=== PATIENT | male | born 1945 | race Asian ===

== ENCOUNTER 2020-05-18 12:45 | Inpatient (IN) | payer MEDICARE, MEDICAID ==
[~2020-05-18] VITALS: Ht 157.5 cm; Wt 59.9 kg
[2020-05-18 13:25] VITALS: BP 203/74
[2020-05-18 13:53] LABS: BASOPHILS % (AUTO) 0.8 % (0.0-2.0); EOSINOPHILS % (AUTO) 3.3 % (0.0-3.0); HEMATOCRIT 40.1 % (42.0-52.0); HEMOGLOBIN 12.9 G/DL (14.2-18.0); LYMPHOCYTES % (AUTO) 7.6 % (20.0-45.0); MEAN CORPUSCULAR VOLUME 95 FL (80-99); MONOCYTES % (AUTO) 8.1 % (1.0-10.0); NEUTROPHILS % (AUTO) 80.1 % (45.0-75.0); PLATELET COUNT 175 K/UL (150-450); RED BLOOD COUNT 4.21 M/UL (4.70-6.10); RED CELL DISTRIBUTION WIDTH 17.3 % (11.6-14.8); WHITE BLOOD COUNT 8.5 K/UL (4.8-10.8)
[2020-05-18 14:06] LABS: CREATININE 7.9 MG/DL (0.55-1.30); POTASSIUM 4.8 MMOL/L (3.5-5.1)
[2020-05-18 14:17] LABS: ALBUMIN/GLOBULIN RATIO 0.6 (1.0-2.7); BILIRUBIN,TOTAL 0.4 MG/DL (0.2-1.0)
--- NOTE | 2020-05-18 14:45 | Consultation ---
Consult Note Consult Note Asked to evaluate the patient at the request of Dr. Johnson for dialysis management Patient seen in emergency room room 10 Patient here for shortness of breath He gets dialysis Monday He admits to have been drinking lots of liquid over the weekend Upon arrival his blood pressure was accelerated and out of control Patient interviewed and examined Emergency room note: HPI: 74-year old male presents for shortness of breath and generalized weakness. He states he has had shortness of breath on exertion for approximately 1 week. Currently walking with a walker and states he can only take a few steps without becoming shortness of breath. He has a history of hypertension diabetes and is on dialysis Monday. Last dialysis was on Monday. He denies any chest pain nausea vomiting fever or cough. Allergies: MORPHINE (Verified Allergy, Unknown, 05/18/20) COVID-19 Screening Contact w/high risk pt: No Experienced COVID-19 symptoms?: No COVID-19 Testing performed METHODOLOGIST: No Past Medical History: No History, Except For Hx Hypertension: Yes Hx Diabetes: Yes Vital Signs Date Time Temp Pulse Resp B/P (MAP) Pulse Ox O2 Delivery O2 Flow Rate FiO2 05/18/20 12:50 97.3 53 16 201/70 (113) 100 Room Air 05/18/20 13:25 98 PHYSICAL EXAMINATION: VITAL SIGNS: Blood pressure was as high as 180/70, pulse is 72, respirations 18, and he is afebrile. HEAD AND NECK: No JVD. LUNGS: Decreased breath sounds. CARDIOVASCULAR: Regular S1 and S2 with no gallop. ABDOMEN: Soft. EXTREMITIES: No pitting edema. LABORATORY AND DIAGNOSTIC DATA: Labs show white count of 6.8, hemoglobin 12.7, hematocrit 38.2, platelet count of 175. Sodium 142, potassium 4.3, BUN of 56, creatinine of 6.9. BNP is 21,000. Initial troponin was negative, but followup troponin is positive at 0.32. . Assessment/Plan End-stage renal disease on hemodialysis via left upper arm fistula Monday Volume overload, on chest x-ray evident Hypertension [id number] DM Blood pressure management Hemodialysis in a.m. Per orders Taye Costa MD May 18, 2020 14:45
[2020-05-18] MEDS ORDERED: Nitroglycerin Subl 0.4mg tab SL PRN (15:15)
--- NOTE | 2020-05-18 15:45 | History and Physical ---
History of Present Illness General Date patient seen: May 18, 2020 Time patient seen: 13:00 Reason for Hospitalization: Generalized Weakness Present Illness HPI 74 y/o M with ESRD on HD TIW ( Monday, , Monday ) at [facility] under the care of Dr. Gasca. He reports having his last HD last Monday and developing increasing fatigue, weakness and gradual shortness of breath. He reports living alone and wearing mask when outside his home and at dialysis. He denies any fever, chills, purulent sputum. In the ER he was found to have CXR with volume overload and blunting of the chostophrenic angles, admission is requested. His BP was very elevated in the ER > 200 mmHg and was treated with IV Hydralazine and now is in the 160 range. Denies any chest pain, headache, hypoxia. Allergies: Coded Allergies: MORPHINE (Verified Allergy, Unknown, 05/18/20) COVID-19 Screening Contact w/high risk pt: No Experienced COVID-19 symptoms?: No Patient History Healthcare decision maker N Resuscitation status Advanced Directive on File Review of Systems All Other Systems: negative except mentioned in HPI Physical Exam General Appearance: WD/WN Lines, tubes and drains: peripheral HEENT: normocephalic, atraumatic Neck: non-tender, normal alignment Respiratory/Chest: lungs clear Cardiovascular/Chest: normal rate Abdomen: non tender Extremities: normal range of motion Skin Exam: normal pigmentation 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 Last 24 Hour Vital Signs Date Time Temp Pulse Resp B/P (MAP) Pulse Ox O2 Delivery O2 Flow Rate FiO2 05/18/20 14:14 209/61 05/18/20 13:25 97.3 56 18 203/74 98 Room Air 05/18/20 13:25 56 18 Room Air 98 05/18/20 12:50 97.3 53 16 201/70 (113) 100 Room Air Laboratory Tests Test 05/18/20 13:41 White Blood Count 8.5 K/UL (4.8-10.8) Red Blood Count 4.21 M/UL (4.70-6.10) L Hemoglobin 12.9 G/DL (14.2-18.0) L Hematocrit 40.1 % (42.0-52.0) L Mean Corpuscular Volume 95 FL (80-99) Mean Corpuscular Hemoglobin 30.5 PG (27.0-31.0) Mean Corpuscular Hemoglobin Concent 32.1 G/DL (32.0-36.0) Red Cell Distribution Width 17.3 % (11.6-14.8) H Platelet Count 175 K/UL (150-450) Mean Platelet Volume 7.6 FL (6.5-10.1) Neutrophils (%) (Auto) 80.1 % (45.0-75.0) H Lymphocytes (%) (Auto) 7.6 % (20.0-45.0) L Monocytes (%) (Auto) 8.1 % (1.0-10.0) Eosinophils (%) (Auto) 3.3 % (0.0-3.0) H Basophils (%) (Auto) 0.8 % (0.0-2.0) Sodium Level 137 MMOL/L (136-145) Potassium Level 4.8 MMOL/L (3.5-5.1) Chloride Level 96 MMOL/L (98-107) L Carbon Dioxide Level 30 MMOL/L (21-32) Anion Gap 11 mmol/L (5-15) Blood Urea Nitrogen 81 mg/dL (7-18) H Creatinine 7.9 MG/DL (0.55-1.30) H Estimat Glomerular Filtration Rate 6.7 mL/min (>60) Glucose Level 272 MG/DL (74-106) H Calcium Level 10.0 MG/DL (8.5-10.1) Total Bilirubin 0.4 MG/DL (0.2-1.0) Aspartate Amino Transf (AST/SGOT) 19 U/L (15-37) Alanine Aminotransferase (ALT/SGPT) 11 U/L (12-78) L Alkaline Phosphatase 90 U/L (46-116) Troponin I 0.049 ng/mL (0.000-0.056) Pro-B-Type Natriuretic Peptide 49708 pg/mL (0-125) H Total Protein 8.1 G/DL (6.4-8.2) Albumin 3.0 G/DL (3.4-5.0) L Globulin 5.1 g/dL Albumin/Globulin Ratio 0.6 (1.0-2.7) L Height (Feet): 5 Height (Inches): 3.00 Weight (Pounds): 142 Medications Current Medications Medications (Trade) Dose Ordered Sig/Love Route PRN Reason Start Time Stop Time Status Last Admin Dose Admin Docusate Sodium (Colace) 100 mg TWICE A DAY ORAL 05/18/20 18:00 06/17/20 17:59 Hydralazine HCl (Apresoline) 50 mg Q6HR ORAL 05/18/20 18:00 08/16/20 17:59 Nifedipine (Procardia XL) 30 mg DAILY ORAL 05/19/20 09:00 06/18/20 08:59 Nifedipine (Procardia XL) 30 mg ONCE ORAL 05/18/20 15:00 05/18/20 17:00 Pantoprazole (Protonix) 40 mg DAILY ORAL 05/19/20 09:00 06/18/20 08:59 Sevelamer Carbonate (Renvela) 800 mg THREE TIMES A DAY ORAL 05/18/20 18:00 08/16/20 17:59 Objective Narrative CXR with bibasilar pleural effusion noted. No evidence of pneumonia by my read. EKG: NSR with 1 degree AVB Assessment/Plan Status: stable Assessment/Plan: 74 y/o male admitted to the Hospital with; # Volume overload # ESRD on HD Etiology most likely due to renal failure. Last HD on Monday, 2 days ago. Suspect dietary indiscretion Renal consult requested HD in am per renal service Resume home medication. Including phosphate binders. # Accelerated Hypertension Resume home medication. Nephrology started Nifedipine - which will be monitored. ( at home Amlodipine was being used per report ) Hydralazine PRN and scheduled. Monitor BP # Hyperlipidemia Resume statin # Physical deconditioning Monitor activity PT evaluation for baseline and consideration for short term rehab if indicated DVT ppx with heparin GI ppx with PPI FULL CODE Rehan Johnson MD May 18, 2020 15:45
--- NOTE | 2020-05-18 15:48 | Emergency Room Report ---
History of Present Illness General Chief Complaint: Generalized Weakness Source: Patient Present Illness HPI Disclaimer: Please note that this report is being documented using Pic[employer] technology. This can lead to erroneous entry secondary to incorrect interpretation by the dictating instrument. HPI: 74-year old male presents for shortness of breath and generalized weakness. He states he has had shortness of breath on exertion for approximately 1 week. Currently walking with a walker and states he can only take a few steps without becoming shortness of breath. He has a history of hypertension diabetes and is on dialysis Monday. Last dialysis was on Monday. He denies any chest pain nausea vomiting fever or cough. Allergies: Coded Allergies: MORPHINE (Verified Allergy, Unknown, 05/18/20) COVID-19 Screening Contact w/high risk pt: No Experienced COVID-19 symptoms?: No COVID-19 Testing performed PROCESS CONTROLS TECHNICIAN: No Patient History Reviewed Nursing Documentation: PMH: Agreed; PSxH: Agreed Nursing Documentation-PMH Past Medical History: No History, Except For Hx Hypertension: Yes Hx Diabetes: Yes Review of Systems All Other Systems: negative except mentioned in HPI Physical Exam Vital Signs Date Time Temp Pulse Resp B/P (MAP) Pulse Ox O2 Delivery O2 Flow Rate FiO2 05/18/20 12:50 97.3 53 16 201/70 (113) 100 Room Air 05/18/20 13:25 98 Sp02 EP Interpretation: reviewed, normal General Appearance: no apparent distress, cachetic Head: normocephalic, atraumatic Eyes: bilateral eye PERRL, bilateral eye EOMI ENT: hearing grossly normal, moist mucus membranes Neck: full range of motion, supple Respiratory: lungs clear, normal breath sounds, no rhonchi, no respiratory distress, no retraction, no wheezing Cardiovascular #1: normal peripheral pulses, regular rate, rhythm, no murmur, other - Dialysis access noted in the left upper extremity with a thrill Gastrointestinal: non tender, soft, non-distended, no guarding Musculoskeletal: other - Trace bilateral lower extremity edema noted Neurologic: alert, oriented x3, no focal defects Skin: normal color, warm/dry Medical Decision Making Diagnostic Impression: Primary Impression: Accelerated essential hypertension Additional Impressions: Volume overload Pleural effusion, left ER Course MDM: Patient presented for shortness of breath on exertion. Differential included but not limited to fluid overload, uncontrolled hypertension, pleural effusion, pulmonary edema, CHF to name a few Clinical course-IV cardiac monitoring pulse oximetry. Chest x-ray revealed left pleural effusion. Patient's blood pressure also elevated in the ER. Hydralazine was given. Patient will require admission for most likely urgent dialysis. Patient will be admitted under Dr. Johnson who plans to consult nephrology. Troponin 0.049, BNP elevated. Labs - Laboratory Tests Test 05/18/20 13:41 White Blood Count 8.5 K/UL (4.8-10.8) Red Blood Count 4.21 M/UL (4.70-6.10) L Hemoglobin 12.9 G/DL (14.2-18.0) L Hematocrit 40.1 % (42.0-52.0) L Mean Corpuscular Volume 95 FL (80-99) Mean Corpuscular Hemoglobin 30.5 PG (27.0-31.0) Mean Corpuscular Hemoglobin Concent 32.1 G/DL (32.0-36.0) Red Cell Distribution Width 17.3 % (11.6-14.8) H Platelet Count 175 K/UL (150-450) Mean Platelet Volume 7.6 FL (6.5-10.1) Neutrophils (%) (Auto) 80.1 % (45.0-75.0) H Lymphocytes (%) (Auto) 7.6 % (20.0-45.0) L Monocytes (%) (Auto) 8.1 % (1.0-10.0) Eosinophils (%) (Auto) 3.3 % (0.0-3.0) H Basophils (%) (Auto) 0.8 % (0.0-2.0) Sodium Level 137 MMOL/L (136-145) Potassium Level 4.8 MMOL/L (3.5-5.1) Chloride Level 96 MMOL/L (98-107) L Carbon Dioxide Level 30 MMOL/L (21-32) Anion Gap 11 mmol/L (5-15) Blood Urea Nitrogen 81 mg/dL (7-18) H Creatinine 7.9 MG/DL (0.55-1.30) H Estimated Glomerular Filtration Rate 6.7 mL/min (>60) Glucose Level 272 MG/DL (74-106) H Calcium Level 10.0 MG/DL (8.5-10.1) Total Bilirubin 0.4 MG/DL (0.2-1.0) Aspartate Amino Transferase (AST) 19 U/L (15-37) Alanine Aminotransferase (ALT) 11 U/L (12-78) L Alkaline Phosphatase 90 U/L (46-116) Troponin I 0.049 ng/mL (0.000-0.056) Pro-B-Type Natriuretic Peptide 26206 pg/mL (0-125) H Total Protein 8.1 G/DL (6.4-8.2) Albumin 3.0 G/DL (3.4-5.0) L Globulin 5.1 g/dL Albumin/Globulin Ratio 0.6 (1.0-2.7) L Plan-Admission to the telemetry floor. EKG Diagnostic Results Rate: bradycardiac Rhythm: NSR, other - Sinus bradycardia ST Segments: no acute changes Other Impression First-degree AV block Chest X-Ray Diagnostic Results Chest X-Ray Diagnostic Results : Chest X-Ray Ordered: Yes # of Views/Limited/Complete: 1 View Last Vital Signs Date Time Temp Pulse Resp B/P (MAP) Pulse Ox O2 Delivery O2 Flow Rate FiO2 05/18/20 14:14 209/61 05/18/20 13:25 97.3 56 18 98 Room Air 05/18/20 13:25 98 Status: improved Disposition: ADMITTED INPATIENT Condition: Serious Scripts Unable to Obtain Active Prescriptions or Reported Meds Referrals: NOT CHOSEN IPA/,REFERRING (PCP) Félix Self M.D. May 18, 2020 15:48
--- NOTE | 2020-05-18 16:43 | Diagnostic Imaging Report ---
Indication: Shortness of breath Technique: One view of the chest Comparison: none Findings: There is a large left pleural effusion and [id number] right pleural effusion. The heart size is upper limits normal. There is mild pulmonary venous congestion. Impression: Bilateral pleural effusions Mild pulmonary venous congestion
[2020-05-18] MEDS: HydrALAZINE 50mg tab ORAL SCH (18:03)
[2020-05-18] MEDS: Docusate 100mg cap ORAL SCH (18:03)
[2020-05-18] MEDS: Terazosin 1mg cap ORAL SCH (18:06)
[2020-05-18 20:00] VITALS: BP 149/53
[2020-05-18] MEDS: Atorvastatin 20mg tab ORAL SCH (22:20)
[2020-05-18] MEDS: Heparin 5000 units/ml inj SUBQ SCH (22:27)
[2020-05-19] VITALS: BP 148/55
[2020-05-19] MEDS: HydrALAZINE 50mg tab ORAL SCH ×3 (01:21→12:00)
[2020-05-19 04:00] VITALS: BP 140/50
[2020-05-19 08:00] VITALS: BP 155/49
[2020-05-19] MEDS: Terazosin 1mg cap ORAL SCH ×2 (08:39→08:41)
[2020-05-19] MEDS: Docusate 100mg cap ORAL SCH ×2 (08:40→17:52)
[2020-05-19] MEDS: Heparin 5000 units/ml inj SUBQ SCH ×2 (08:40→21:13)
[2020-05-19 08:49] LABS: BASOPHILS % (AUTO) 0.9 % (0.0-2.0); EOSINOPHILS % (AUTO) 2.4 % (0.0-3.0); HEMOGLOBIN 12.3 G/DL (14.2-18.0); MEAN CORPUSCULAR VOLUME 97 FL (80-99); MONOCYTES % (AUTO) 6.9 % (1.0-10.0); NEUTROPHILS % (AUTO) 81.9 % (45.0-75.0); PLATELET COUNT 175 K/UL (150-450); RED BLOOD COUNT 4.02 M/UL (4.70-6.10); RED CELL DISTRIBUTION WIDTH 16.3 % (11.6-14.8)
[2020-05-19 09:49] LABS: ALANINE AMINOTRANSFERASE 9 U/L (12-78); ALBUMIN 2.7 G/DL (3.4-5.0); ALBUMIN/GLOBULIN RATIO 0.6 (1.0-2.7); ALKALINE PHOSPHATASE 78 U/L (46-116); ANION GAP 12 mmol/L (5-15); ASPARTATE AMINO TRANSFERASE 20 U/L (15-37); BILIRUBIN,TOTAL 0.5 MG/DL (0.2-1.0); BLOOD UREA NITROGEN 98 mg/dL (7-18); CALCIUM 9.6 MG/DL (8.5-10.1); CARBON DIOXIDE 26 MMOL/L (21-32); CHLORIDE 99 MMOL/L (98-107); CHOLESTEROL 107 MG/DL (< 200); CREATININE 9.4 MG/DL (0.55-1.30); GAMMA GLUTAMYL TRANSPEPTIDASE 37 U/L (5-85); HDL CHOLESTEROL 31 MG/DL (40-60); PHOSPHORUS 6.3 MG/DL (2.5-4.9); POTASSIUM 5.7 MMOL/L (3.5-5.1); SODIUM 137 MMOL/L (136-145); TRIGLYCERIDES 58 MG/DL (30-150)
[2020-05-19 11:50] VITALS: BP 150/54
--- NOTE | 2020-05-19 14:24 | General Progress Note ---
Subjective Date patient seen: May 19, 2020 Time patient seen: 13:00 ROS Limited/Unobtainable: Yes Allergies: Coded Allergies: MORPHINE (Verified Allergy, Unknown, 05/18/20) All Systems: reviewed and negative except above Subjective Dialysis about to begin. he feels well. Reports limited endurance with PT session. Objective Last 24 Hour Vital Signs Date Time Temp Pulse Resp B/P (MAP) Pulse Ox O2 Delivery O2 Flow Rate FiO2 05/19/20 12:00 66 05/19/20 12:00 150/54 05/19/20 11:50 96.9 76 18 150/54 (86) 95 05/19/20 09:00 Room Air 05/19/20 08:48 57 155/49 05/19/20 08:00 97.5 59 18 155/49 (84) 95 05/19/20 08:00 57 05/19/20 06:26 151/50 05/19/20 04:00 97.5 58 20 140/50 (80) 96 05/19/20 04:00 62 05/19/20 03:01 62 05/19/20 01:21 148/55 05/19/20 00:00 97.5 61 20 148/55 (86) 95 05/18/20 21:00 Room Air 05/18/20 20:00 59 05/18/20 20:00 98.1 62 18 149/53 (85) 95 05/18/20 18:04 71 172/56 05/18/20 18:03 172/56 05/18/20 16:13 Room Air 05/18/20 15:45 97.3 71 16 152/74 98 Room Air Intake and Output 05/18/20 05/19/20 19:00 07:00 Intake Total 100 ml Output Total 10 ml Balance 100 ml -10 ml Intake Oral 100 ml Output Urine Total 10 ml # Voids 2 Laboratory Tests 05/19/20 08:30: White Blood Count 7.0, Red Blood Count 4.02L, Hemoglobin 12.3L, Hematocrit 39.0L , Mean Corpuscular Volume 97, Mean Corpuscular Hemoglobin 30.6, Mean Corpuscular Hemoglobin Concent 31.6L, Red Cell Distribution Width 16.3H, Platelet Count 175, Mean Platelet Volume 9.0, Neutrophils (%) (Auto) 81.9H, Lymphocytes (%) (Auto) 8.0L, Monocytes (%) (Auto) 6.9, Eosinophils (%) (Auto) 2.4, Basophils (%) (Auto) 0.9, Sodium Level 137, Potassium Level 5.7H, Chloride Level 99, Carbon Dioxide Level 26, Anion Gap 12, Blood Urea Nitrogen 98H, Creatinine 9.4H, Estimat Glomerular Filtration Rate 5.5, Glucose Level 151#H, Hemoglobin A1c 6.4H, Uric Acid 7.3H, Calcium Level 9.6, Phosphorus Level 6.3H, Magnesium Level 2.7H, Total Bilirubin 0.5, Gamma Glutamyl Transpeptidase 37, Aspartate Amino Transf (AST/SGOT) 20, Alanine Aminotransferase (ALT/SGPT) 9L, Alkaline Phosphatase 78, Troponin I 0.324H, C-Reactive Protein, Quantitative 5.6H, Pro-B-Type Natriuretic Peptide 61584T, Total Protein 7.4, Albumin 2.7L, Globulin 4.7, Albumin/Globulin Ratio 0.6L, Triglycerides Level 58, Cholesterol Level 107, LDL Cholesterol 64, HDL Cholesterol 31L, Cholesterol/HDL Ratio 3.5, Vitamin B12 Level 1076H, Folate 19.7, Thyroid Stimulating Hormone (TSH) 1.063, Hepatitis B Surface Antigen [Pending] Height (Feet): 5 Height (Inches): 2.00 Weight (Pounds): 132 General Appearance: WD/WN EENT: PERRL/EOMI Neck: non-tender Cardiovascular: normal rate Respiratory/Chest: lungs clear Abdomen: soft 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 Last HD on Monday, Suspect dietary indiscretion Renal consult requested and HD session underway. Resume home medication. Including phosphate binders. # Accelerated Hypertension Resume home medication. Nephrology started Nifedipine - which will be monitored. ( at home Amlodipine was being used per report ) Hydralazine PRN and scheduled. Monitor BP which is in the 150 range in the last 24 hrs. # Hyperlipidemia Resume statin # Physical deconditioning Monitor activity PT evaluation for baseline and consideration for short term rehab if indicated. Case discussed with the patient and he is open to rehabilitation. 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 DVT ppx with heparin GI ppx with PPI FULL CODE Rehan Johnson MD May 19, 2020 14:24
--- NOTE | 2020-05-19 15:10 | Nephrology Progress Note ---
Assessment/Plan Problem List: (1) Hypertensive emergency (2) ESRD (end stage renal disease) on dialysis (3) Fluid overload (4) Anemia in chronic kidney disease (CKD) (5) Hypertensive kidney disease Assessment End-stage renal disease on hemodialysis via left upper arm fistula Monday Volume overload, on chest x-ray evident Hypertension [id number] Plan May 19: Hemodialysis and ultrafiltration today. Adjust blood pressure medication. Start low-dose aspirin and nitrate. Monitor renal parameters. 2D echocardiogram indicative of ejection fraction of 60% and most likely diastolic dysfunction Subjective ROS Limited/Unobtainable: No Constitutional: Reports: malaise Objective Objective Last 24 Hour Vital Signs Date Time Temp Pulse Resp B/P (MAP) Pulse Ox O2 Delivery O2 Flow Rate FiO2 05/19/20 12:00 66 05/19/20 12:00 150/54 05/19/20 11:50 96.9 76 18 150/54 (86) 95 05/19/20 09:00 Room Air 05/19/20 08:48 57 155/49 05/19/20 08:00 97.5 59 18 155/49 (84) 95 05/19/20 08:00 57 05/19/20 06:26 151/50 05/19/20 04:00 97.5 58 20 140/50 (80) 96 05/19/20 04:00 62 05/19/20 03:01 62 05/19/20 01:21 148/55 05/19/20 00:00 97.5 61 20 148/55 (86) 95 05/18/20 21:00 Room Air 05/18/20 20:00 59 05/18/20 20:00 98.1 62 18 149/53 (85) 95 05/18/20 18:04 71 172/56 05/18/20 18:03 172/56 05/18/20 16:13 Room Air 05/18/20 15:45 97.3 71 16 152/74 98 Room Air Intake and Output 05/18/20 05/19/20 19:00 07:00 Intake Total 100 ml Output Total 10 ml Balance 100 ml -10 ml Intake Oral 100 ml Output Urine Total 10 ml # Voids 2 Current Medications Medications (Trade) Dose Ordered Sig/Love Route PRN Reason Start Time Stop Time Status Last Admin Dose Admin Acetaminophen (Tylenol) 650 mg Q4H PRN ORAL Mild Pain (Pain Scale 1-3) 05/18/20 15:15 06/17/20 15:14 Aspirin (ASA) 81 mg DAILY ORAL 05/19/20 15:15 07/03/20 15:14 Atorvastatin Calcium (Lipitor) 20 mg QHS ORAL 05/18/20 21:00 08/16/20 20:59 05/18/20 22:20 Dextrose (Dextrose 50%) 25 ml Q30M PRN IV Hypoglycemia 05/18/20 15:15 08/16/20 15:14 Dextrose (Dextrose 50%) 50 ml Q30M PRN IV Hypoglycemia 05/18/20 15:15 08/16/20 15:14 Docusate Sodium (Colace) 100 mg TWICE A DAY ORAL 05/18/20 18:00 06/17/20 17:59 05/19/20 08:40 Heparin Sodium (Porcine) (Heparin 5000 units/ml) 5,000 units EVERY 12 HOURS SUBQ 05/18/20 21:00 07/02/20 20:59 05/19/20 08:40 Hydralazine HCl (Apresoline) 10 mg Q4H PRN IV spb > 160 05/18/20 15:15 08/16/20 15:14 Hydralazine HCl (Apresoline) 75 mg Q8HR ORAL 05/19/20 22:00 08/16/20 17:59 Hydromorphone HCl (Dilaudid) 2 mg Q4H PRN IVP Severe Pain (Pain Scale 7-10) 05/18/20 15:15 05/25/20 15:14 Nifedipine (Procardia XL) 30 mg ONCE ORAL 05/19/20 15:15 05/19/20 17:30 Nifedipine (Procardia XL) 60 mg DAILY ORAL 05/20/20 09:00 06/18/20 08:59 Nitroglycerin (Ntg) 0.4 mg Q5M PRN SL Prn Chest Pain 05/18/20 15:15 06/17/20 15:14 Nitroglycerin (Ntg) 1 patch Q24H TDERMAL 05/19/20 16:00 06/18/20 15:59 Ondansetron HCl (Zofran) 4 mg Q6H PRN IVP Nausea & Vomiting 05/18/20 15:15 06/17/20 15:14 Pantoprazole (Protonix) 40 mg DAILY ORAL 05/19/20 09:00 06/18/20 08:59 05/19/20 08:40 Sevelamer Carbonate (Renvela) 800 mg THREE TIMES A DAY ORAL 05/18/20 18:00 08/16/20 17:59 05/19/20 13:10 Terazosin HCl (Hytrin) 2 mg QHS ORAL 05/20/20 21:00 06/17/20 17:59 Laboratory Tests 05/19/20 08:30: White Blood Count 7.0, Red Blood Count 4.02L, Hemoglobin 12.3L, Hematocrit 39.0L , Mean Corpuscular Volume 97, Mean Corpuscular Hemoglobin 30.6, Mean Corpuscular Hemoglobin Concent 31.6L, Red Cell Distribution Width 16.3H, Platelet Count 175, Mean Platelet Volume 9.0, Neutrophils (%) (Auto) 81.9H, Lymphocytes (%) (Auto) 8.0L, Monocytes (%) (Auto) 6.9, Eosinophils (%) (Auto) 2.4, Basophils (%) (Auto) 0.9, Sodium Level 137, Potassium Level 5.7H, Chloride Level 99, Carbon Dioxide Level 26, Anion Gap 12, Blood Urea Nitrogen 98H, Creatinine 9.4H, Estimat Glomerular Filtration Rate 5.5, Glucose Level 151#H, Hemoglobin A1c 6.4H, Uric Acid 7.3H, Calcium Level 9.6, Phosphorus Level 6.3H, Magnesium Level 2.7H, Total Bilirubin 0.5, Gamma Glutamyl Transpeptidase 37, Aspartate Amino Transf (AST/SGOT) 20, Alanine Aminotransferase (ALT/SGPT) 9L, Alkaline Phosphatase 78, Troponin I 0.324H, C-Reactive Protein, Quantitative 5.6H, Pro-B-Type Natriuretic Peptide 34522I, Total Protein 7.4, Albumin 2.7L, Globulin 4.7, Albumin/Globulin Ratio 0.6L, Triglycerides Level 58, Cholesterol Level 107, LDL Cholesterol 64, HDL Cholesterol 31L, Cholesterol/HDL Ratio 3.5, Vitamin B12 Level 1076H, Folate 19.7, Thyroid Stimulating Hormone (TSH) 1.063, Hepatitis B Surface Antigen [Pending] Height (Feet): 5 Height (Inches): 2.00 Weight (Pounds): 132 General Appearance: no apparent distress, lethargic Cardiovascular: normal rate Respiratory/Chest: decreased breath sounds Taye Costa MD May 19, 2020 15:10
[2020-05-19] MEDS: Aspirin Baby 81mg ORAL SCH ×2 (15:15→15:38)
[2020-05-19 15:55] VITALS: BP 174/71
[2020-05-19] MEDS: Nitroglycerin Patch 0.4mg TDERMAL SCH (17:52)
[2020-05-19 20:00] VITALS: BP 119/55
[2020-05-19] MEDS: Atorvastatin 20mg tab ORAL SCH (21:15)
[2020-05-19] MEDS: HydrALAZINE 25mg tab ORAL SCH (22:00)
[2020-05-20] VITALS: BP 130/79
[2020-05-20 04:00] VITALS: BP 149/63
--- NOTE | 2020-05-20 04:13 | Cardiology Report ---
APPROVED REPORT EXAM: Two-dimensional and M-mode echocardiogram with Doppler and color Doppler. INDICATION Congestive Heart Failure M-Mode DIMENSIONS IVSd0.7 (0.7-1.1cm)Left Atrium (MM)3.8 (1.6-4.0cm) LVDd5.1 (3.5-5.6cm)Aortic Root3.3 (2.0-3.7cm) PWd0.9 (0.7-1.1cm)Aortic Cusp Exc.2.1 (1.5-2.0cm) IVSs1.6 cm LVDs2.6 (2.5-4.0cm) PWs1.8 cm <Conclusion> Normal left ventricular chamber size, systolic function and wall motion. Left ventricular ejection fraction estimated to be 60-65%. Mild left ventricular hypertrophy. Possible pleural effusion . All other cardiac chamber sizes are within normal limits. Calcification of aortic valve with adequate cusp excursion. Thickened mitral valve leaflets with normal excursion. Mitral annulus and aortic root calcification. Pulmonic valve not well visualized. Normal tricuspid valve structure. IVC at normal size with physiologic collapse. A color flow and spectral Doppler study was performed and revealed: No aortic insufficiency. Trace mitral regurgitation. Mitral inflow indicates normal left ventricular diastolic function. Trace tricuspid regurgitation. Tricuspid systolic velocities suggests peak right ventricular systolic pressure of 12 mmHg.
--- NOTE | 2020-05-20 04:14 | Cardiology Report ---
APPROVED REPORT EKG Measurement Heart [id number] <Conclusion> Sinus bradycardia with 1st degree AV block Septal infarct, age undetermined Abnormal ECG
[2020-05-20] MEDS: HydrALAZINE 25mg tab ORAL SCH ×2 (05:55→13:16)
[2020-05-20 07:17] LABS: EOSINOPHILS % (AUTO) 2.7 % (0.0-3.0); HEMATOCRIT 38.2 % (42.0-52.0); HEMOGLOBIN 12.6 G/DL (14.2-18.0); LYMPHOCYTES % (AUTO) 6.9 % (20.0-45.0); MEAN CORPUSCULAR VOLUME 94 FL (80-99); NEUTROPHILS % (AUTO) 79.4 % (45.0-75.0); PLATELET COUNT 175 K/UL (150-450); RED BLOOD COUNT 4.08 M/UL (4.70-6.10); RED CELL DISTRIBUTION WIDTH 16.2 % (11.6-14.8); WHITE BLOOD COUNT 6.8 K/UL (4.8-10.8)
[2020-05-20 07:30] LABS: CALCIUM 9.3 MG/DL (8.5-10.1); CREATININE 6.9 MG/DL (0.55-1.30); PHOSPHORUS 4.8 MG/DL (2.5-4.9); POTASSIUM 4.3 MMOL/L (3.5-5.1)
[2020-05-20 08:00] VITALS: BP 176/75
[2020-05-20] MEDS: Heparin 5000 units/ml inj SUBQ SCH ×2 (08:19→21:07)
[2020-05-20] MEDS: Docusate 100mg cap ORAL SCH ×2 (08:20→17:15)
[2020-05-20] MEDS: Aspirin Baby 81mg ORAL SCH (08:21)
[2020-05-20 12:00] VITALS: BP 178/64
[2020-05-20 15:39] VITALS: BP 163/60
--- NOTE | 2020-05-20 15:55 | Cardiac Electrophysiology PN ---
Subjective Subjective [id number] Objective Last 24 Hour Vital Signs Date Time Temp Pulse Resp B/P (MAP) Pulse Ox O2 Delivery O2 Flow Rate FiO2 05/20/20 15:39 72 18 163/60 (94) 05/20/20 13:16 180/70 05/20/20 12:00 97.1 66 20 178/64 (102) 95 05/20/20 12:00 66 05/20/20 11:47 178/64 05/20/20 09:00 Room Air 05/20/20 08:21 71 176/75 05/20/20 08:00 97.5 71 19 176/75 (108) 95 05/20/20 08:00 80 05/20/20 05:55 149/63 05/20/20 04:00 61 05/20/20 04:00 97.5 74 18 149/63 (91) 95 05/20/20 00:00 61 05/20/20 00:00 98.0 61 20 130/79 (96) 95 05/19/20 22:00 119/55 05/19/20 21:00 Room Air 05/19/20 20:00 98.2 76 18 119/55 (76) 92 05/19/20 20:00 79 05/19/20 17:52 160/101 05/19/20 16:00 73 Intake and Output 05/19/20 05/20/20 19:00 07:00 Intake Total 340 ml 100 ml Output Total 3000 ml Balance -2660 ml 100 ml Intake Oral 340 ml 100 ml Hemodialysis UF 3000 ml # Voids 1 Laboratory Tests Test 05/20/20 06:48 White Blood Count 6.8 K/UL (4.8-10.8) Red Blood Count 4.08 M/UL (4.70-6.10) L Hemoglobin 12.6 G/DL (14.2-18.0) L Hematocrit 38.2 % (42.0-52.0) L Mean Corpuscular Volume 94 FL (80-99) Mean Corpuscular Hemoglobin 30.8 PG (27.0-31.0) Mean Corpuscular Hemoglobin Concent 32.9 G/DL (32.0-36.0) Red Cell Distribution Width 16.2 % (11.6-14.8) H Platelet Count 175 K/UL (150-450) Mean Platelet Volume 8.3 FL (6.5-10.1) Neutrophils (%) (Auto) 79.4 % (45.0-75.0) H Lymphocytes (%) (Auto) 6.9 % (20.0-45.0) L Monocytes (%) (Auto) 10.0 % (1.0-10.0) Eosinophils (%) (Auto) 2.7 % (0.0-3.0) Basophils (%) (Auto) 1.0 % (0.0-2.0) Sodium Level 142 MMOL/L (136-145) Potassium Level 4.3 MMOL/L (3.5-5.1) Chloride Level 101 MMOL/L (98-107) Carbon Dioxide Level 32 MMOL/L (21-32) Anion Gap 9 mmol/L (5-15) Blood Urea Nitrogen 56 mg/dL (7-18) H Creatinine 6.9 MG/DL (0.55-1.30) H Estimat Glomerular Filtration Rate 7.9 mL/min (>60) Glucose Level 116 MG/DL (74-106) H Calcium Level 9.3 MG/DL (8.5-10.1) Phosphorus Level 4.8 MG/DL (2.5-4.9) Magnesium Level 2.5 MG/DL (1.8-2.4) H Microbiology Date/Time Source Procedure Growth Status 05/19/20 15:50 Rectum Received Danny Roque MD May 20, 2020 15:55
--- NOTE | 2020-05-20 15:57 | General Progress Note ---
Subjective Date patient seen: May 20, 2020 Time patient seen: 14:00 ROS Limited/Unobtainable: Yes Allergies: Coded Allergies: MORPHINE (Verified Allergy, Unknown, 05/18/20) All Systems: reviewed and negative except above Subjective He feels well. Reports limited endurance with PT session. He is open to go to SNF when medically stable in order to improve functional status. Objective Last 24 Hour Vital Signs Date Time Temp Pulse Resp B/P (MAP) Pulse Ox O2 Delivery O2 Flow Rate FiO2 05/20/20 15:39 72 18 163/60 (94) 05/20/20 13:16 180/70 05/20/20 12:00 97.1 66 20 178/64 (102) 95 05/20/20 12:00 66 05/20/20 11:47 178/64 05/20/20 09:00 Room Air 05/20/20 08:21 71 176/75 05/20/20 08:00 97.5 71 19 176/75 (108) 95 05/20/20 08:00 80 05/20/20 05:55 149/63 05/20/20 04:00 61 05/20/20 04:00 97.5 74 18 149/63 (91) 95 05/20/20 00:00 61 05/20/20 00:00 98.0 61 20 130/79 (96) 95 05/19/20 22:00 119/55 05/19/20 21:00 Room Air 05/19/20 20:00 98.2 76 18 119/55 (76) 92 05/19/20 20:00 79 05/19/20 17:52 160/101 05/19/20 16:00 73 05/19/20 15:55 97.8 78 18 174/71 (105) 95 Intake and Output 05/19/20 05/20/20 19:00 07:00 Intake Total 340 ml 100 ml Output Total 3000 ml Balance -2660 ml 100 ml Intake Oral 340 ml 100 ml Hemodialysis UF 3000 ml # Voids 1 Laboratory Tests 05/20/20 06:48: White Blood Count 6.8, Red Blood Count 4.08L, Hemoglobin 12.6L, Hematocrit 38.2L , Mean Corpuscular Volume 94, Mean Corpuscular Hemoglobin 30.8, Mean Corpuscular Hemoglobin Concent 32.9, Red Cell Distribution Width 16.2H, Platelet Count 175, Mean Platelet Volume 8.3, Neutrophils (%) (Auto) 79.4H, Lymphocytes (%) (Auto) 6.9L, Monocytes (%) (Auto) 10.0, Eosinophils (%) (Auto) 2.7, Basophils (%) (Auto) 1.0, Sodium Level 142, Potassium Level 4.3, Chloride Level 101, Carbon Dioxide Level 32, Anion Gap 9, Blood Urea Nitrogen 56H, Creatinine 6.9H, Estimat Glomerular Filtration Rate 7.9, Glucose Level 116H, Calcium Level 9.3, Phosphorus Level 4.8, Magnesium Level 2.5H Height (Feet): 5 Height (Inches): 2.00 Weight (Pounds): 132 General Appearance: WD/WN EENT: PERRL/EOMI Neck: normal alignment Cardiovascular: normal rate Respiratory/Chest: lungs clear Abdomen: non tender Extremities: normal range of motion Neurologic: watch inspector final movement II-XII grossly normal Assessment/Plan Status: stable Assessment/Plan: 74 y/o male admitted to the Hospital with; # Volume overload # ESRD on HD Etiology most likely due to renal failure. Last HD on Monday, Suspect dietary indiscretion Renal consult requested and HD session was done yesterday and planned for tomorrow. Resume home medication. Including phosphate binders. # Accelerated Hypertension Resume home medication. Nephrology started Nifedipine - which will be monitored. ( at home Amlodipine was being used per report ) Hydralazine PRN and scheduled. Monitor BP which is in the 150 range in the last 24 hrs. # Hyperlipidemia Resume statin # Physical deconditioning Monitor activity PT evaluation for baseline and consideration for short term rehab if indicated. Case discussed with the patient and he is open to rehabilitation. manager r dsenior assistant manager requested. He has been accepted at [facility] per family request. DVT ppx with heparin GI ppx with PPI FULL CODE Rehan Johnson MD May 20, 2020 15:57
[2020-05-20] MEDS ORDERED: HydrALAZINE 25mg tab ORAL SCH (15:58)
[2020-05-20] MEDS ORDERED: Lisinopril 10mg tab ORAL SCH (16:15)
--- NOTE | 2020-05-20 16:17 | Nephrology Progress Note ---
Assessment/Plan Problem List: (1) Hypertensive emergency (2) ESRD (end stage renal disease) on dialysis (3) Fluid overload (4) Anemia in chronic kidney disease (CKD) (5) Hypertensive kidney disease Assessment End-stage renal disease on hemodialysis via left upper arm fistula Monday Volume overload, on chest x-ray evident Hypertension [id number] Plan May 20: Hemodialysis tomorrow. Blood pressure medication adjusted. Labs reviewed. Discussed with . Check chest x-ray tomorrow. May 19: Hemodialysis and ultrafiltration today. Adjust blood pressure medication. Start low-dose aspirin and nitrate. Monitor renal parameters. 2D echocardiogram indicative of ejection fraction of 60% and most likely diastolic dysfunction Subjective ROS Limited/Unobtainable: No Constitutional: Reports: malaise Objective Objective Last 24 Hour Vital Signs Date Time Temp Pulse Resp B/P (MAP) Pulse Ox O2 Delivery O2 Flow Rate FiO2 05/20/20 16:03 160/70 05/20/20 15:39 72 18 163/60 (94) 05/20/20 13:16 180/70 05/20/20 12:00 97.1 66 20 178/64 (102) 95 05/20/20 12:00 66 05/20/20 11:47 178/64 05/20/20 09:00 Room Air 05/20/20 08:21 71 176/75 05/20/20 08:00 97.5 71 19 176/75 (108) 95 05/20/20 08:00 80 05/20/20 05:55 149/63 05/20/20 04:00 61 05/20/20 04:00 97.5 74 18 149/63 (91) 95 05/20/20 00:00 61 05/20/20 00:00 98.0 61 20 130/79 (96) 95 05/19/20 22:00 119/55 05/19/20 21:00 Room Air 05/19/20 20:00 98.2 76 18 119/55 (76) 92 05/19/20 20:00 79 05/19/20 17:52 160/101 Intake and Output 05/19/20 05/20/20 19:00 07:00 Intake Total 340 ml 100 ml Output Total 3000 ml Balance -2660 ml 100 ml Intake Oral 340 ml 100 ml Hemodialysis UF 3000 ml # Voids 1 Current Medications Medications (Trade) Dose Ordered Sig/Love Route PRN Reason Start Time Stop Time Status Last Admin Dose Admin Acetaminophen (Tylenol) 650 mg Q4H PRN ORAL Mild Pain (Pain Scale 1-3) 05/18/20 15:15 06/17/20 15:14 Aspirin (ASA) 81 mg DAILY ORAL 05/19/20 15:15 07/03/20 15:14 05/20/20 08:21 Atorvastatin Calcium (Lipitor) 20 mg QHS ORAL 05/18/20 21:00 08/16/20 20:59 05/19/20 21:15 Dextrose (Dextrose 50%) 25 ml Q30M PRN IV Hypoglycemia 05/18/20 15:15 08/16/20 15:14 Dextrose (Dextrose 50%) 50 ml Q30M PRN IV Hypoglycemia 05/18/20 15:15 08/16/20 15:14 Docusate Sodium (Colace) 100 mg TWICE A DAY ORAL 05/18/20 18:00 06/17/20 17:59 05/20/20 08:20 Heparin Sodium (Porcine) (Heparin 5000 units/ml) 5,000 units EVERY 12 HOURS SUBQ 05/18/20 21:00 07/02/20 20:59 05/20/20 08:19 Hydralazine HCl (Apresoline) 10 mg Q4H PRN IV spb > 160 05/18/20 15:15 08/16/20 15:14 05/20/20 11:47 Hydralazine HCl (Apresoline) 25 mg ONCE ORAL 05/20/20 15:58 05/20/20 18:00 05/20/20 16:03 Hydralazine HCl (Apresoline) 100 mg Q8HR ORAL 05/20/20 22:00 08/18/20 21:59 Hydromorphone HCl (Dilaudid) 2 mg Q4H PRN IVP Severe Pain (Pain Scale 7-10) 05/18/20 15:15 05/25/20 15:14 Lisinopril (ZestriL) 10 mg DAILY ORAL 05/21/20 09:00 06/20/20 08:59 UNV Lisinopril (ZestriL) 10 mg ONCE ONCE ORAL 05/20/20 16:15 11/4/20 16:16 UNV Nifedipine (Procardia XL) 60 mg DAILY ORAL 05/20/20 09:00 06/18/20 08:59 05/20/20 08:21 Nitroglycerin (Ntg) 0.4 mg Q5M PRN SL Prn Chest Pain 05/18/20 15:15 06/17/20 15:14 Nitroglycerin (Ntg) 1 patch Q24H TDERMAL 05/19/20 16:00 06/18/20 15:59 05/19/20 17:52 Ondansetron HCl (Zofran) 4 mg Q6H PRN IVP Nausea & Vomiting 05/18/20 15:15 06/17/20 15:14 Pantoprazole (Protonix) 40 mg BID ORAL 05/19/20 18:00 06/18/20 08:59 05/20/20 08:21 Sevelamer Carbonate (Renvela) 800 mg THREE TIMES A DAY ORAL 05/18/20 18:00 08/16/20 17:59 05/20/20 13:15 Terazosin HCl (Hytrin) 2 mg QHS ORAL 05/20/20 21:00 06/17/20 17:59 Laboratory Tests 05/20/20 06:48: White Blood Count 6.8, Red Blood Count 4.08L, Hemoglobin 12.6L, Hematocrit 38.2L , Mean Corpuscular Volume 94, Mean Corpuscular Hemoglobin 30.8, Mean Corpuscular Hemoglobin Concent 32.9, Red Cell Distribution Width 16.2H, Platelet Count 175, Mean Platelet Volume 8.3, Neutrophils (%) (Auto) 79.4H, Lymphocytes (%) (Auto) 6.9L, Monocytes (%) (Auto) 10.0, Eosinophils (%) (Auto) 2.7, Basophils (%) (Auto) 1.0, Sodium Level 142, Potassium Level 4.3, Chloride Level 101, Carbon Dioxide Level 32, Anion Gap 9, Blood Urea Nitrogen 56H, Creatinine 6.9H, Estimat Glomerular Filtration Rate 7.9, Glucose Level 116H, Calcium Level 9.3, Phosphorus Level 4.8, Magnesium Level 2.5H Height (Feet): 5 Height (Inches): 2.00 Weight (Pounds): 132 General Appearance: no apparent distress Cardiovascular: normal rate Respiratory/Chest: decreased breath sounds Abdomen: soft, distended Fouladian,Taye MD May 20, 2020 16:17
[2020-05-20] MEDS: Nitroglycerin Patch 0.4mg TDERMAL SCH (17:19)
--- NOTE | 2020-05-20 18:15 | Consultation ---
DATE OF CONSULTATION: 05/20/2020 CARDIOLOGY CONSULTATION REFERRING PHYSICIAN: Rehan Johnson M.D. REASON FOR CONSULTATION: Atrial fibrillation. HISTORY OF PRESENT ILLNESS: The patient is a 74-year-old gentleman with history of hypertension, end-stage renal disease, on hemodialysis on Monday, , and Monday at [facility], who was admitted to the hospital for increasing fatigue and weakness and shortness of breath. In the ER, the patient was found to have volume overload and also noted that blood pressure was more than 200 and was treated with IV hydralazine. Today the patient had an episode of atrial fibrillation and a cardiology consultation was obtained for further followup and management. The patient subsequently converted to sinus rhythm with first-degree AV block. The patient is currently in isolation from pulmonary perspective. REVIEW OF SYSTEMS: Negative other than what was mentioned in history of present illness. PAST MEDICAL HISTORY: As mentioned above. FAMILY HISTORY: Noncontributory. SOCIAL HISTORY: He does not smoke or drink alcohol. PHYSICAL EXAMINATION: VITAL SIGNS: Blood pressure was as high as 180/70, pulse is 72, respirations 18, and he is afebrile. HEAD AND NECK: No JVD. LUNGS: Decreased breath sounds. CARDIOVASCULAR: Regular S1 and S2 with no gallop. ABDOMEN: Soft. EXTREMITIES: No pitting edema. LABORATORY AND DIAGNOSTIC DATA: Labs show white count of 6.8, hemoglobin 12.7, hematocrit 38.2, platelet count of 175. Sodium 142, potassium 4.3, BUN of 56, creatinine of 6.9. BNP is 21,000. Initial troponin was negative, but followup troponin is positive at 0.32. ASSESSMENT AND PLAN: 1. Episode of atrial fibrillation, converted to sinus rhythm. Heart rate is controlled. Continue only on aspirin at this time. If I see the patient has more long-lasting episode of atrial fibrillation, we will consider anticoagulation. 2. Accelerated hypertension. Blood pressure is better on Procardia XL 60 mg daily and Hytrin 2 mg at night. I will increase hydralazine to 100 mg every 8 hours. The patient is also on hemodialysis. 3. Hyperlipidemia, on Lipitor. 4. Troponin leak, likely due to renal failure. We will also get a followup troponin and EKG. His echocardiogram showed EF of 60-65%. 5. Shortness of breath and cough. The patient is currently in respiratory isolation. Thank you very much Dr. Johnson for allowing me to participate in the care of this patient. Please do not hesitate to contact me for any questions regarding my evaluation. Danny Roque M.D. DR: KATIE JOB#: [id number] CC:
[2020-05-20 20:00] VITALS: BP 138/56
[2020-05-20] MEDS: Atorvastatin 20mg tab ORAL SCH (21:05)
[2020-05-20] MEDS: HydrALAZINE 50mg tab ORAL SCH (21:05)
[2020-05-20] MEDS: Terazosin 1mg cap ORAL SCH (21:05)
[2020-05-21] VITALS (7 sets, daily range): BP systolic 125–162; BP diastolic 60–71
[2020-05-21] MEDS: HydrALAZINE 50mg tab ORAL SCH ×3 (06:19→21:42)
[2020-05-21 07:28] LABS: BASOPHILS % (AUTO) 0.7 % (0.0-2.0); EOSINOPHILS % (AUTO) 3.5 % (0.0-3.0); HEMOGLOBIN 12.7 G/DL (14.2-18.0); LYMPHOCYTES % (AUTO) 10.1 % (20.0-45.0); MEAN CORPUSCULAR VOLUME 96 FL (80-99); MONOCYTES % (AUTO) 9.4 % (1.0-10.0); NEUTROPHILS % (AUTO) 76.3 % (45.0-75.0); PLATELET COUNT 169 K/UL (150-450); RED BLOOD COUNT 4.18 M/UL (4.70-6.10); RED CELL DISTRIBUTION WIDTH 15.5 % (11.6-14.8); WHITE BLOOD COUNT 6.9 K/UL (4.8-10.8)
[2020-05-21 07:48] LABS: CALCIUM 9.7 MG/DL (8.5-10.1); CREATININE 8.8 MG/DL (0.55-1.30); PHOSPHORUS 5.5 MG/DL (2.5-4.9); POTASSIUM 4.4 MMOL/L (3.5-5.1)
[2020-05-21] MEDS ORDERED: Lisinopril 10mg tab ORAL SCH (09:00)
[2020-05-21] MEDS: Docusate 100mg cap ORAL SCH ×3 (10:16→18:14)
[2020-05-21] MEDS: Aspirin Baby 81mg ORAL SCH (10:16)
[2020-05-21] MEDS: Heparin 5000 units/ml inj SUBQ SCH ×2 (10:17→20:45)
--- NOTE | 2020-05-21 10:38 | Nephrology Progress Note ---
Assessment/Plan Problem List: (1) Hypertensive emergency (2) ESRD (end stage renal disease) on dialysis (3) Fluid overload (4) Anemia in chronic kidney disease (CKD) (5) Hypertensive kidney disease Assessment End-stage renal disease on hemodialysis via left upper arm fistula Monday Volume overload, on chest x-ray evident Hypertension [id number] Plan May 21: Due for hemodialysis today. Continue to adjust blood pressure medication. Labs reviewed. Chest x-ray pending. May 20: Hemodialysis tomorrow. Blood pressure medication adjusted. Labs reviewed. Discussed with . Check chest x-ray tomorrow. May 19: Hemodialysis and ultrafiltration today. Adjust blood pressure medication. Start low-dose aspirin and nitrate. Monitor renal parameters. 2D echocardiogram indicative of ejection fraction of 60% and most likely diastolic dysfunction Subjective ROS Limited/Unobtainable: No Constitutional: Reports: malaise Objective Objective Last 24 Hour Vital Signs Date Time Temp Pulse Resp B/P (MAP) Pulse Ox O2 Delivery O2 Flow Rate FiO2 05/21/20 08:00 98.1 70 19 151/61 (91) 96 05/21/20 06:24 162/65 (97) 05/21/20 06:19 162/65 05/21/20 04:00 97.9 80 18 125/60 (81) 97 05/21/20 04:00 79 05/21/20 00:00 69 05/21/20 00:00 97.7 71 18 141/60 (87) 94 05/20/20 21:05 138/56 05/20/20 21:00 Room Air 05/20/20 20:00 61 05/20/20 20:00 98.2 61 18 138/56 (83) 93 05/20/20 17:19 131/54 05/20/20 16:48 133/65 05/20/20 16:03 160/70 05/20/20 16:00 64 05/20/20 15:39 72 18 163/60 (94) 05/20/20 13:16 180/70 05/20/20 12:00 97.1 66 20 178/64 (102) 95 05/20/20 12:00 66 05/20/20 11:47 178/64 Intake and Output 05/20/20 05/21/20 19:00 07:00 Intake Total 1320 ml Balance 1320 ml Intake Oral 1320 ml # Voids 1 Current Medications Medications (Trade) Dose Ordered Sig/Love Route PRN Reason Start Time Stop Time Status Last Admin Dose Admin Acetaminophen (Tylenol) 650 mg Q4H PRN ORAL Mild Pain (Pain Scale 1-3) 05/18/20 15:15 06/17/20 15:14 Aspirin (ASA) 81 mg DAILY ORAL 05/19/20 15:15 07/03/20 15:14 05/21/20 10:16 Atorvastatin Calcium (Lipitor) 20 mg QHS ORAL 05/18/20 21:00 08/16/20 20:59 05/20/20 21:05 Dextrose (Dextrose 50%) 25 ml Q30M PRN IV Hypoglycemia 05/18/20 15:15 08/16/20 15:14 Dextrose (Dextrose 50%) 50 ml Q30M PRN IV Hypoglycemia 05/18/20 15:15 08/16/20 15:14 Docusate Sodium (Colace) 100 mg TID ORAL 05/20/20 18:00 06/17/20 17:59 05/21/20 10:16 Ethambutol HCl (Myambutol) 1,000 mg TuThSa@1800 ORAL 05/21/20 18:00 06/20/20 17:59 Heparin Sodium (Porcine) (Heparin 5000 units/ml) 5,000 units EVERY 12 HOURS SUBQ 05/18/20 21:00 07/02/20 20:59 05/21/20 10:17 Hydralazine HCl (Apresoline) 10 mg Q4H PRN IV spb > 160 05/18/20 15:15 08/16/20 15:14 05/20/20 11:47 Hydralazine HCl (Apresoline) 100 mg Q8HR ORAL 05/20/20 22:00 08/18/20 21:59 05/21/20 06:19 Hydromorphone HCl (Dilaudid) 2 mg Q4H PRN IVP Severe Pain (Pain Scale 7-10) 05/18/20 15:15 05/25/20 15:14 Levofloxacin (Levaquin) 750 mg TuThSa@1800 ORAL 05/21/20 18:00 05/28/20 17:59 Lisinopril (ZestriL) 10 mg DAILY ORAL 05/21/20 09:00 06/20/20 08:59 Nifedipine (Procardia XL) 60 mg DAILY ORAL 05/20/20 09:00 06/18/20 08:59 05/20/20 08:21 Nitroglycerin (Ntg) 0.4 mg Q5M PRN SL Prn Chest Pain 05/18/20 15:15 06/17/20 15:14 Nitroglycerin (Ntg) 1 patch Q24H TDERMAL 05/19/20 16:00 06/18/20 15:59 05/20/20 17:19 Ondansetron HCl (Zofran) 4 mg Q6H PRN IVP Nausea & Vomiting 05/18/20 15:15 06/17/20 15:14 Pantoprazole (Protonix) 40 mg BID ORAL 05/19/20 18:00 06/18/20 08:59 05/21/20 10:16 Pyrazinamide (Pza) 1,500 mg TuThSa@1800 ORAL 05/21/20 18:00 06/20/20 17:59 Rifabutin (Mycobutin) 300 mg DAILY@1800 ORAL 05/21/20 18:00 06/20/20 17:59 Sevelamer Carbonate (Renvela) 800 mg THREE TIMES A DAY ORAL 05/18/20 18:00 08/16/20 17:59 05/21/20 10:15 Terazosin HCl (Hytrin) 2 mg QHS ORAL 05/20/20 21:00 06/17/20 17:59 05/20/20 21:05 Laboratory Tests 05/21/20 06:25: White Blood Count 6.9, Red Blood Count 4.18L, Hemoglobin 12.7L, Hematocrit 40.0L , Mean Corpuscular Volume 96, Mean Corpuscular Hemoglobin 30.3, Mean Corpuscular Hemoglobin Concent 31.7L, Red Cell Distribution Width 15.5H, Platelet Count 169, Mean Platelet Volume 7.6, Neutrophils (%) (Auto) 76.3H, Lymphocytes (%) (Auto) 10.1L, Monocytes (%) (Auto) 9.4, Eosinophils (%) (Auto) 3.5H, Basophils (%) (Auto) 0.7, Sodium Level 138, Potassium Level 4.4, Chloride Level 97L, Carbon Dioxide Level 30, Anion Gap 11, Blood Urea Nitrogen 79H, Creatinine 8.8H, Estimat Glomerular Filtration Rate 6.0, Glucose Level 83, Calcium Level 9.7, Phosphorus Level 5.5H, Magnesium Level 2.5H, Troponin I 0.164H Height (Feet): 5 Height (Inches): 2.00 Weight (Pounds): 132 General Appearance: no apparent distress, lethargic Cardiovascular: normal rate Respiratory/Chest: decreased breath sounds Abdomen: soft Objective No change Taye Costa MD May 21, 2020 10:38
--- NOTE | 2020-05-21 13:34 | Diagnostic Imaging Report ---
Indication: Shortness of breath Technique: One view of the chest Comparison: 05/18/2020 Findings: There are bilateral left greater than right pleural effusions again demonstrated. Mild interstitial congestive changes persist. The heart remains borderline enlarged. Impression: Unchanged, over one day, findings as above.
--- NOTE | 2020-05-21 13:46 | General Progress Note ---
Subjective Date patient seen: May 21, 2020 Time patient seen: 13:00 ROS Limited/Unobtainable: Yes Allergies: Coded Allergies: MORPHINE (Verified Allergy, Unknown, 05/18/20) All Systems: reviewed and negative except above Subjective He feels well. Reports limited endurance with PT session. Dialysis done today. His blood pressure is not at target. Objective Last 24 Hour Vital Signs Date Time Temp Pulse Resp B/P (MAP) Pulse Ox O2 Delivery O2 Flow Rate FiO2 05/21/20 08:00 98.1 70 19 151/61 (91) 96 05/21/20 06:24 162/65 (97) 05/21/20 06:19 162/65 05/21/20 04:00 97.9 80 18 125/60 (81) 97 05/21/20 04:00 79 05/21/20 00:00 69 05/21/20 00:00 97.7 71 18 141/60 (87) 94 05/20/20 21:05 138/56 05/20/20 21:00 Room Air 05/20/20 20:00 61 05/20/20 20:00 98.2 61 18 138/56 (83) 93 05/20/20 17:19 131/54 05/20/20 16:48 133/65 05/20/20 16:03 160/70 05/20/20 16:00 64 05/20/20 15:39 72 18 163/60 (94) Intake and Output 05/20/20 05/21/20 19:00 07:00 Intake Total 1320 ml Balance 1320 ml Intake Oral 1320 ml # Voids 1 Laboratory Tests 05/21/20 06:25: White Blood Count 6.9, Red Blood Count 4.18L, Hemoglobin 12.7L, Hematocrit 40.0L , Mean Corpuscular Volume 96, Mean Corpuscular Hemoglobin 30.3, Mean Corpuscular Hemoglobin Concent 31.7L, Red Cell Distribution Width 15.5H, Platelet Count 169, Mean Platelet Volume 7.6, Neutrophils (%) (Auto) 76.3H, Lymphocytes (%) (Auto) 10.1L, Monocytes (%) (Auto) 9.4, Eosinophils (%) (Auto) 3.5H, Basophils (%) (Auto) 0.7, Sodium Level 138, Potassium Level 4.4, Chloride Level 97L, Carbon Dioxide Level 30, Anion Gap 11, Blood Urea Nitrogen 79H, Creatinine 8.8H, Estimat Glomerular Filtration Rate 6.0, Glucose Level 83, Calcium Level 9.7, Phosphorus Level 5.5H, Magnesium Level 2.5H, Troponin I 0.164H Height (Feet): 5 Height (Inches): 2.00 Weight (Pounds): 132 General Appearance: WD/WN EENT: PERRL/EOMI Neck: non-tender Cardiovascular: normal rate Respiratory/Chest: lungs clear Abdomen: non tender Extremities: normal range of motion Neurologic: manager energy II-XII grossly normal Assessment/Plan Status: stable Assessment/Plan: 74 y/o male admitted to the Hospital with; # Volume overload # ESRD on HD Etiology most likely due to renal failure. Last HD on Monday, Suspect dietary indiscretion Renal consult requested and HD session was done yesterday and planned for tomorrow. Resume home medication. Including phosphate binders. # Accelerated Hypertension Nephrology started Nifedipine 60 mg daily - which will be monitored. ( at home Amlodipine was being used per report ) Hydralazine PRN and scheduled 100 mg q 8 hrs Lisinopril 10 mg BID Monitor BP which is in the 150 range in the last 24 hrs. Not at target. # Reported history of tuberculosis Department of public health guidelines being followed. RIPE was started 05/20 when doses where confirmed due to ESRD and HD regimen AFB sputum x 3 ordered 1400, 2200 and tomorrow 600 Isolation per department for public health, TB controller. # Hyperlipidemia statin # Physical deconditioning Monitor activity PT evaluation for baseline and consideration for short term rehab if indicated. Case discussed with the patient and he is open to rehabilitation. golf sales managermanager learning requested. He has been accepted at [facility] per family request. DVT ppx with heparin GI ppx with PPI FULL CODE Rehan Johnson MD May 21, 2020 13:46
[2020-05-21] MEDS: Nitroglycerin Patch 0.4mg TDERMAL SCH (16:00)
--- NOTE | 2020-05-21 18:09 | Cardiac Electrophysiology PN ---
Assessment/Plan Assessment/Plan 1. Episode of atrial fibrillation, converted to sinus rhythm. Heart rate is controlled. Continue only on aspirin at this time. If I see the patient has more long-lasting episode of atrial fibrillation, we will consider anticoagulation. 2. Accelerated hypertension. Blood pressure is better on Procardia XL 60 mg daily, Hytrin 2 mg at night, hydralazine 100 mg every 8 hours, Lisinopril 10 bid and hemodialysis. 3. Troponin leak, likely due to renal failure. 0.32, 0.16. No CP. His echocardiogram showed EF of 60-65%. 4. Shortness of breath and cough. In TB isolation on Meds 5. ESRD on HD 6. Hyperlipidemia, on Lipitor. Subjective Subjective Mildly SOB. No CP. HD pending Objective Last 24 Hour Vital Signs Date Time Temp Pulse Resp B/P (MAP) Pulse Ox O2 Delivery O2 Flow Rate FiO2 05/21/20 16:00 79 05/21/20 16:00 149/71 05/21/20 14:54 145/77 05/21/20 12:00 85 05/21/20 08:00 65 05/21/20 08:00 98.1 70 19 151/61 (91) 96 05/21/20 06:24 162/65 (97) 05/21/20 06:19 162/65 05/21/20 04:00 97.9 80 18 125/60 (81) 97 05/21/20 04:00 79 05/21/20 00:00 69 05/21/20 00:00 97.7 71 18 141/60 (87) 94 05/20/20 21:05 138/56 05/20/20 21:00 Room Air 05/20/20 20:00 61 05/20/20 20:00 98.2 61 18 138/56 (83) 93 Intake and Output 05/20/20 05/21/20 19:00 07:00 Intake Total 1320 ml Balance 1320 ml Intake Oral 1320 ml # Voids 1 Laboratory Tests Test 05/21/20 06:25 White Blood Count 6.9 K/UL (4.8-10.8) Red Blood Count 4.18 M/UL (4.70-6.10) L Hemoglobin 12.7 G/DL (14.2-18.0) L Hematocrit 40.0 % (42.0-52.0) L Mean Corpuscular Volume 96 FL (80-99) Mean Corpuscular Hemoglobin 30.3 PG (27.0-31.0) Mean Corpuscular Hemoglobin Concent 31.7 G/DL (32.0-36.0) L Red Cell Distribution Width 15.5 % (11.6-14.8) H Platelet Count 169 K/UL (150-450) Mean Platelet Volume 7.6 FL (6.5-10.1) Neutrophils (%) (Auto) 76.3 % (45.0-75.0) H Lymphocytes (%) (Auto) 10.1 % (20.0-45.0) L Monocytes (%) (Auto) 9.4 % (1.0-10.0) Eosinophils (%) (Auto) 3.5 % (0.0-3.0) H Basophils (%) (Auto) 0.7 % (0.0-2.0) Sodium Level 138 MMOL/L (136-145) Potassium Level 4.4 MMOL/L (3.5-5.1) Chloride Level 97 MMOL/L (98-107) L Carbon Dioxide Level 30 MMOL/L (21-32) Anion Gap 11 mmol/L (5-15) Blood Urea Nitrogen 79 mg/dL (7-18) H Creatinine 8.8 MG/DL (0.55-1.30) H Estimat Glomerular Filtration Rate 6.0 mL/min (>60) Glucose Level 83 MG/DL (74-106) Calcium Level 9.7 MG/DL (8.5-10.1) Phosphorus Level 5.5 MG/DL (2.5-4.9) H Magnesium Level 2.5 MG/DL (1.8-2.4) H Troponin I 0.164 ng/mL (0.000-0.056) Microbiology Date/Time Source Procedure Growth Status 05/19/20 15:50 Rectum - Final NO CARBAPENEM-RESISTANT ENTEROBACTERI... Complete 05/19/20 15:50 Rectum VRE Culture - Final NO VANCOMYCIN RESISTANT ENTEROCOCCUS ... Complete 05/19/20 15:50 Nasal Nares MRSA Culture - Final NO METHICILLIN RESISTANT STAPH AUREUS... Complete Objective HEAD AND NECK: No JVD. LUNGS: Decreased breath sounds. CARDIOVASCULAR: Regular S1 and S2 with no gallop. ABDOMEN: Soft. EXTREMITIES: No pitting edema. Danny Roque MD May 21, 2020 18:09
[2020-05-21] MEDS: Levofloxacin 750mg tab ORAL SCH (18:14)
[2020-05-21] MEDS: Rifabutin 150mg cap ORAL SCH (18:15)
[2020-05-21] MEDS: Pyridoxine 50mg tab ORAL SCH (18:16)
[2020-05-21] MEDS: Lisinopril 10mg tab ORAL SCH (18:17)
[2020-05-21] MEDS: Atorvastatin 20mg tab ORAL SCH (20:38)
[2020-05-21] MEDS: Terazosin 1mg cap ORAL SCH (20:38)
[2020-05-22] VITALS: BP 105/59
[2020-05-22 04:00] VITALS: BP 112/61
[2020-05-22] MEDS: HydrALAZINE 50mg tab ORAL SCH ×3 (06:39→21:33)
[2020-05-22 08:00] VITALS: BP 132/57
[2020-05-22 09:21] LABS: EOSINOPHILS % (AUTO) 1.4 % (0.0-3.0); HEMOGLOBIN 11.9 G/DL (14.2-18.0); LYMPHOCYTES % (AUTO) 6.6 % (20.0-45.0); MEAN CORPUSCULAR VOLUME 95 FL (80-99); MONOCYTES % (AUTO) 8.2 % (1.0-10.0); NEUTROPHILS % (AUTO) 82.9 % (45.0-75.0); PLATELET COUNT 164 K/UL (150-450); RED BLOOD COUNT 3.92 M/UL (4.70-6.10); RED CELL DISTRIBUTION WIDTH 16.8 % (11.6-14.8); WHITE BLOOD COUNT 6.6 K/UL (4.8-10.8)
[2020-05-22 10:10] LABS: ALBUMIN 2.6 G/DL (3.4-5.0); ALBUMIN/GLOBULIN RATIO 0.6 (1.0-2.7); BILIRUBIN,TOTAL 0.5 MG/DL (0.2-1.0); CALCIUM 9.1 MG/DL (8.5-10.1); CREATININE 7.6 MG/DL (0.55-1.30); PHOSPHORUS 4.9 MG/DL (2.5-4.9); POTASSIUM 5.1 MMOL/L (3.5-5.1)
[2020-05-22] MEDS: Docusate 100mg cap ORAL SCH ×3 (10:31→18:17)
[2020-05-22] MEDS: Lisinopril 10mg tab ORAL SCH ×2 (10:32→18:15)
[2020-05-22] MEDS: Aspirin Baby 81mg ORAL SCH (10:32)
[2020-05-22] MEDS: Heparin 5000 units/ml inj SUBQ SCH ×2 (10:36→21:34)
--- NOTE | 2020-05-22 11:47 | Nephrology Progress Note ---
Assessment/Plan Problem List: (1) Hypertensive emergency (2) ESRD (end stage renal disease) on dialysis (3) Fluid overload (4) Anemia in chronic kidney disease (CKD) (5) Hypertensive kidney disease Assessment End-stage renal disease on hemodialysis via left upper arm fistula Monday Volume overload, on chest x-ray evident Hypertension [id number] Plan May 22: Dialyzed yesterday. Stable from renal standpoint of view. Chest x- ray noted. Hemodialysis and ultrafiltration tomorrow. May 21: Due for hemodialysis today. Continue to adjust blood pressure medication. Labs reviewed. Chest x-ray pending. May 20: Hemodialysis tomorrow. Blood pressure medication adjusted. Labs reviewed. Discussed with . Check chest x-ray tomorrow. May 19: Hemodialysis and ultrafiltration today. Adjust blood pressure medication. Start low-dose aspirin and nitrate. Monitor renal parameters. 2D echocardiogram indicative of ejection fraction of 60% and most likely diastolic dysfunction Subjective ROS Limited/Unobtainable: No Constitutional: Reports: malaise, weakness Objective Objective Last 24 Hour Vital Signs Date Time Temp Pulse Resp B/P (MAP) Pulse Ox O2 Delivery O2 Flow Rate FiO2 05/22/20 10:32 132/57 05/22/20 10:32 79 132/57 05/22/20 08:00 79 05/22/20 08:00 97.9 68 18 132/57 (82) 97 05/22/20 06:39 129/65 05/22/20 04:00 65 05/22/20 04:00 97.7 75 18 112/61 (78) 99 05/22/20 00:00 56 05/22/20 00:00 97.5 64 18 105/59 (74) 98 05/21/20 21:42 136/75 05/21/20 21:00 Nasal Cannula 2.0 05/21/20 20:00 75 05/21/20 20:00 97.2 75 17 128/71 (90) 97 05/21/20 18:17 149/75 05/21/20 16:00 79 05/21/20 16:00 96.7 72 19 149/71 (97) 97 05/21/20 16:00 149/71 05/21/20 14:54 145/77 05/21/20 12:00 85 05/21/20 12:00 96.7 80 20 140/61 (87) 97 Intake and Output 05/21/20 05/22/20 19:00 07:00 Intake Total 140 ml 190 ml Output Total 4400 ml 210 ml Balance -4260 ml -20 ml Intake Oral 140 ml 190 ml Output Urine Total 1400 ml 210 ml Hemodialysis UF 3000 ml # Voids 3 3 Laboratory Tests 05/22/20 08:35: White Blood Count 6.6, Red Blood Count 3.92L, Hemoglobin 11.9L, Hematocrit 37.0L , Mean Corpuscular Volume 95, Mean Corpuscular Hemoglobin 30.4, Mean Corpuscular Hemoglobin Concent 32.1, Red Cell Distribution Width 16.8H, Platelet Count 164, Mean Platelet Volume 8.0, Neutrophils (%) (Auto) 82.9H, Lymphocytes (%) (Auto) 6.6L, Monocytes (%) (Auto) 8.2, Eosinophils (%) (Auto) 1.4, Basophils (%) (Auto) 1.0, Sodium Level 137, Potassium Level 5.1, Chloride Level 98, Carbon Dioxide Level 30, Anion Gap 10, Blood Urea Nitrogen 65H, Creatinine 7.6H, Estimat Glomerular Filtration Rate 7.1, Glucose Level 182#H, Uric Acid 4.5, Calcium Level 9.1, Phosphorus Level 4.9, Magnesium Level 2.4, Total Bilirubin 0.5, Aspartate Amino Transf (AST/SGOT) 16, Alanine Aminotransferase (ALT/SGPT) 12, Alkaline Phosphatase 84, C-Reactive Protein, Quantitative 7.8H, Pro-B-Type Natriuretic Peptide 24065H, Total Protein 7.2, Albumin 2.6L, Globulin 4.6, Albumin/Globulin Ratio 0.6L Height (Feet): 5 Height (Inches): 2.00 Weight (Pounds): 132 General Appearance: no apparent distress, lethargic Objective No change Taye Costa MD May 22, 2020 11:47
[2020-05-22 12:00] VITALS: BP 157/54
--- NOTE | 2020-05-22 12:55 | Cardiac Electrophysiology PN ---
Assessment/Plan Assessment/Plan 1. Episode of atrial fibrillation, converted to sinus rhythm. Heart rate is controlled. Continue only on aspirin at this time. If I see the patient has more episode of atrial fibrillation, we will consider anticoagulation. 2. Accelerated hypertension. Blood pressure is better on Procardia XL 60 mg daily, Hytrin 2 mg at night, hydralazine 100 mg every 8 hours, Lisinopril 10 bid and hemodialysis. 3. Troponin leak, likely due to renal failure. 0.32, 0.16. No CP. His echocardiogram showed EF of 60-65%. 4. Shortness of breath and cough. In TB isolation on Meds 5. ESRD on HD 6. Hyperlipidemia, on Lipitor. Subjective Subjective Mildly SOB. No CP. In isolation Objective Last 24 Hour Vital Signs Date Time Temp Pulse Resp B/P (MAP) Pulse Ox O2 Delivery O2 Flow Rate FiO2 05/22/20 10:32 132/57 05/22/20 10:32 79 132/57 05/22/20 08:00 79 05/22/20 08:00 97.9 68 18 132/57 (82) 97 05/22/20 06:39 129/65 05/22/20 04:00 65 05/22/20 04:00 97.7 75 18 112/61 (78) 99 05/22/20 00:00 56 05/22/20 00:00 97.5 64 18 105/59 (74) 98 05/21/20 21:42 136/75 05/21/20 21:00 Nasal Cannula 2.0 05/21/20 20:00 75 05/21/20 20:00 97.2 75 17 128/71 (90) 97 05/21/20 18:17 149/75 05/21/20 16:00 79 05/21/20 16:00 96.7 72 19 149/71 (97) 97 05/21/20 16:00 149/71 05/21/20 14:54 145/77 Intake and Output 05/21/20 05/22/20 19:00 07:00 Intake Total 140 ml 190 ml Output Total 4400 ml 210 ml Balance -4260 ml -20 ml Intake Oral 140 ml 190 ml Output Urine Total 1400 ml 210 ml Hemodialysis UF 3000 ml # Voids 3 3 Laboratory Tests Test 05/22/20 08:35 White Blood Count 6.6 K/UL (4.8-10.8) Red Blood Count 3.92 M/UL (4.70-6.10) L Hemoglobin 11.9 G/DL (14.2-18.0) L Hematocrit 37.0 % (42.0-52.0) L Mean Corpuscular Volume 95 FL (80-99) Mean Corpuscular Hemoglobin 30.4 PG (27.0-31.0) Mean Corpuscular Hemoglobin Concent 32.1 G/DL (32.0-36.0) Red Cell Distribution Width 16.8 % (11.6-14.8) H Platelet Count 164 K/UL (150-450) Mean Platelet Volume 8.0 FL (6.5-10.1) Neutrophils (%) (Auto) 82.9 % (45.0-75.0) H Lymphocytes (%) (Auto) 6.6 % (20.0-45.0) L Monocytes (%) (Auto) 8.2 % (1.0-10.0) Eosinophils (%) (Auto) 1.4 % (0.0-3.0) Basophils (%) (Auto) 1.0 % (0.0-2.0) Sodium Level 137 MMOL/L (136-145) Potassium Level 5.1 MMOL/L (3.5-5.1) Chloride Level 98 MMOL/L (98-107) Carbon Dioxide Level 30 MMOL/L (21-32) Anion Gap 10 mmol/L (5-15) Blood Urea Nitrogen 65 mg/dL (7-18) H Creatinine 7.6 MG/DL (0.55-1.30) H Estimat Glomerular Filtration Rate 7.1 mL/min (>60) Glucose Level 182 MG/DL (74-106) #H Uric Acid 4.5 MG/DL (2.6-7.2) Calcium Level 9.1 MG/DL (8.5-10.1) Phosphorus Level 4.9 MG/DL (2.5-4.9) Magnesium Level 2.4 MG/DL (1.8-2.4) Total Bilirubin 0.5 MG/DL (0.2-1.0) Aspartate Amino Transf (AST/SGOT) 16 U/L (15-37) Alanine Aminotransferase (ALT/SGPT) 12 U/L (12-78) Alkaline Phosphatase 84 U/L (46-116) C-Reactive Protein, Quantitative 7.8 mg/dL (0.00-0.90) H Pro-B-Type Natriuretic Peptide 05179 pg/mL (0-125) H Total Protein 7.2 G/DL (6.4-8.2) Albumin 2.6 G/DL (3.4-5.0) L Globulin 4.6 g/dL Albumin/Globulin Ratio 0.6 (1.0-2.7) L Microbiology Date/Time Source Procedure Growth Status 05/19/20 15:50 Rectum - Final NO CARBAPENEM-RESISTANT ENTEROBACTERI... Complete 05/19/20 15:50 Rectum VRE Culture - Final NO VANCOMYCIN RESISTANT ENTEROCOCCUS ... Complete 05/19/20 15:50 Nasal Nares MRSA Culture - Final NO METHICILLIN RESISTANT STAPH AUREUS... Complete Objective HEAD AND NECK: No JVD. LUNGS: Decreased breath sounds. CARDIOVASCULAR: Regular S1 and S2 with no gallop. ABDOMEN: Soft. EXTREMITIES: No pitting edema. Danny Roque MD May 22, 2020 12:55
--- NOTE | 2020-05-22 14:28 | Consultation ---
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 Upon admission, was found to be volume overload and SBP over 200 Denied n/c, fever, cough Allergies: Coded Allergies: MORPHINE (Verified Allergy, Unknown, 05/18/20) Medication History Unable to Obtain Active Prescriptions or Reported Meds Patient History Healthcare decision maker N Resuscitation status Advanced Directive on File Patient History Narrative Pmhx: as above Shx: He does not smoke or drink alcohol. 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 grossly normal Last 24 Hour Vital Signs Date Time Temp Pulse Resp B/P (MAP) Pulse Ox O2 Delivery O2 Flow Rate FiO2 05/22/20 10:32 132/57 05/22/20 10:32 79 132/57 05/22/20 08:00 79 05/22/20 08:00 97.9 68 18 132/57 (82) 97 05/22/20 06:39 129/65 05/22/20 04:00 65 05/22/20 04:00 97.7 75 18 112/61 (78) 99 05/22/20 00:00 56 05/22/20 00:00 97.5 64 18 105/59 (74) 98 05/21/20 21:42 136/75 05/21/20 21:00 Nasal Cannula 2.0 05/21/20 20:00 75 05/21/20 20:00 97.2 75 17 128/71 (90) 97 05/21/20 18:17 149/75 05/21/20 16:00 79 05/21/20 16:00 96.7 72 19 149/71 (97) 97 05/21/20 16:00 149/71 05/21/20 14:54 145/77 Intake and Output 05/21/20 05/22/20 19:00 07:00 Intake Total 140 ml 190 ml Output Total 4400 ml 210 ml Balance -4260 ml -20 ml Intake Oral 140 ml 190 ml Output Urine Total 1400 ml 210 ml Hemodialysis UF 3000 ml # Voids 3 3 Laboratory Tests Test 05/22/20 08:35 White Blood Count 6.6 K/UL (4.8-10.8) Red Blood Count 3.92 M/UL (4.70-6.10) L Hemoglobin 11.9 G/DL (14.2-18.0) L Hematocrit 37.0 % (42.0-52.0) L Mean Corpuscular Volume 95 FL (80-99) Mean Corpuscular Hemoglobin 30.4 PG (27.0-31.0) Mean Corpuscular Hemoglobin Concent 32.1 G/DL (32.0-36.0) Red Cell Distribution Width 16.8 % (11.6-14.8) H Platelet Count 164 K/UL (150-450) Mean Platelet Volume 8.0 FL (6.5-10.1) Neutrophils (%) (Auto) 82.9 % (45.0-75.0) H Lymphocytes (%) (Auto) 6.6 % (20.0-45.0) L Monocytes (%) (Auto) 8.2 % (1.0-10.0) Eosinophils (%) (Auto) 1.4 % (0.0-3.0) Basophils (%) (Auto) 1.0 % (0.0-2.0) Sodium Level 137 MMOL/L (136-145) Potassium Level 5.1 MMOL/L (3.5-5.1) Chloride Level 98 MMOL/L (98-107) Carbon Dioxide Level 30 MMOL/L (21-32) Anion Gap 10 mmol/L (5-15) Blood Urea Nitrogen 65 mg/dL (7-18) H Creatinine 7.6 MG/DL (0.55-1.30) H Estimat Glomerular Filtration Rate 7.1 mL/min (>60) Glucose Level 182 MG/DL (74-106) #H Uric Acid 4.5 MG/DL (2.6-7.2) Calcium Level 9.1 MG/DL (8.5-10.1) Phosphorus Level 4.9 MG/DL (2.5-4.9) Magnesium Level 2.4 MG/DL (1.8-2.4) Total Bilirubin 0.5 MG/DL (0.2-1.0) Aspartate Amino Transf (AST/SGOT) 16 U/L (15-37) Alanine Aminotransferase (ALT/SGPT) 12 U/L (12-78) Alkaline Phosphatase 84 U/L (46-116) C-Reactive Protein, Quantitative 7.8 mg/dL (0.00-0.90) H Pro-B-Type Natriuretic Peptide 51635 pg/mL (0-125) H Total Protein 7.2 G/DL (6.4-8.2) Albumin 2.6 G/DL (3.4-5.0) L Globulin 4.6 g/dL Albumin/Globulin Ratio 0.6 (1.0-2.7) L Height (Feet): 5 Height (Inches): 2.00 Weight (Pounds): 132 Medications Current Medications Medications (Trade) Dose Ordered Sig/Love Route PRN Reason Start Time Stop Time Status Last Admin Dose Admin Acetaminophen (Tylenol) 650 mg Q4H PRN ORAL Mild Pain (Pain Scale 1-3) 05/18/20 15:15 06/17/20 15:14 Aspirin (ASA) 81 mg DAILY ORAL 05/19/20 15:15 07/03/20 15:14 05/22/20 10:32 Atorvastatin Calcium (Lipitor) 20 mg QHS ORAL 05/18/20 21:00 08/16/20 20:59 05/21/20 20:38 Dextrose (Dextrose 50%) 25 ml Q30M PRN IV Hypoglycemia 05/18/20 15:15 08/16/20 15:14 Dextrose (Dextrose 50%) 50 ml Q30M PRN IV Hypoglycemia 05/18/20 15:15 08/16/20 15:14 Docusate Sodium (Colace) 100 mg TID ORAL 05/20/20 18:00 06/17/20 17:59 05/22/20 10:31 Ethambutol HCl (Myambutol) 1,000 mg TuThSa@1800 ORAL 05/21/20 18:00 06/20/20 17:59 05/21/20 18:15 Heparin Sodium (Porcine) (Heparin 5000 units/ml) 5,000 units EVERY 12 HOURS SUBQ 05/18/20 21:00 07/02/20 20:59 05/22/20 10:36 Hydralazine HCl (Apresoline) 10 mg Q4H PRN IV spb > 160 05/18/20 15:15 08/16/20 15:14 05/20/20 11:47 Hydralazine HCl (Apresoline) 100 mg Q8HR ORAL 05/20/20 22:00 08/18/20 21:59 05/22/20 06:39 Hydromorphone HCl (Dilaudid) 2 mg Q4H PRN IVP Severe Pain (Pain Scale 7-10) 05/18/20 15:15 05/25/20 15:14 Levofloxacin (Levaquin) 750 mg TuThSa@1800 ORAL 05/21/20 18:00 05/28/20 17:59 05/21/20 18:14 Lisinopril (ZestriL) 10 mg BID ORAL 05/21/20 18:00 06/20/20 08:59 05/22/20 10:32 Nifedipine (Procardia XL) 60 mg DAILY ORAL 05/20/20 09:00 06/18/20 08:59 05/22/20 10:32 Nitroglycerin (Ntg) 0.4 mg Q5M PRN SL Prn Chest Pain 05/18/20 15:15 06/17/20 15:14 Nitroglycerin (Ntg) 1 patch Q24H TDERMAL 05/19/20 16:00 06/18/20 15:59 05/21/20 16:00 Ondansetron HCl (Zofran) 4 mg Q6H PRN IVP Nausea & Vomiting 05/18/20 15:15 06/17/20 15:14 Pantoprazole (Protonix) 40 mg BID ORAL 05/19/20 18:00 06/18/20 08:59 05/22/20 10:32 Pyrazinamide (Pza) 1,500 mg TuThSa@1800 ORAL 05/21/20 18:00 06/20/20 17:59 05/21/20 18:15 Pyridoxine HCl (Vitamin B6) 50 mg DAILY@1800 ORAL 05/21/20 18:00 06/20/20 17:59 05/21/20 18:16 Rifabutin (Mycobutin) 300 mg DAILY@1800 ORAL 05/21/20 18:00 06/20/20 17:59 05/21/20 18:15 Sevelamer Carbonate (Renvela) 800 mg THREE TIMES A DAY ORAL 05/18/20 18:00 08/16/20 17:59 05/22/20 10:32 Temazepam (Restoril) 15 mg HSPRN PRN ORAL Insomnia 05/21/20 20:15 05/28/20 20:14 05/21/20 20:37 Terazosin HCl (Hytrin) 2 mg QHS ORAL 05/20/20 21:00 06/17/20 17:59 05/21/20 20:38 Assessment/Plan Assessment/Plan: Assessment: Pulmonary TB (dx;ed prior to admission) -05/18/20 CXR: Bilateral pleural effusions. Mild pulmonary venous congestion Afebrile No leukocytosis HLD HTN ESRD on HD TThSat Plan: -Continue TB regimen: Rifabutin, PZA, Ethambuthol, Levaquin -trend LFTs -f/u cx -Monitor CBC/C MP, temperatures -airborne isolation and AFB sp sm/cx x3 per [facility] recs Thank you for consulting [facility]. Will continue to follow along with you. Discussed with RN and Dr Johnson. Nanda Garsia M.D. May 22, 2020 14:28
--- NOTE | 2020-05-22 15:05 | General Progress Note ---
Subjective Date patient seen: May 22, 2020 Time patient seen: 15:00 ROS Limited/Unobtainable: No Allergies: Coded Allergies: MORPHINE (Verified Allergy, Unknown, 05/18/20) Subjective He feels well. Reports limited endurance with PT session. Dialysis done y . His blood pressure is better control in the 130 mmHg range Objective Last 24 Hour Vital Signs Date Time Temp Pulse Resp B/P (MAP) Pulse Ox O2 Delivery O2 Flow Rate FiO2 05/22/20 14:22 127/54 05/22/20 10:32 132/57 05/22/20 10:32 79 132/57 05/22/20 08:00 79 05/22/20 08:00 97.9 68 18 132/57 (82) 97 05/22/20 06:39 129/65 05/22/20 04:00 65 05/22/20 04:00 97.7 75 18 112/61 (78) 99 05/22/20 00:00 56 05/22/20 00:00 97.5 64 18 105/59 (74) 98 05/21/20 21:42 136/75 05/21/20 21:00 Nasal Cannula 2.0 05/21/20 20:00 75 05/21/20 20:00 97.2 75 17 128/71 (90) 97 05/21/20 18:17 149/75 05/21/20 16:00 79 05/21/20 16:00 96.7 72 19 149/71 (97) 97 05/21/20 16:00 149/71 Intake and Output 05/21/20 05/22/20 19:00 07:00 Intake Total 140 ml 190 ml Output Total 4400 ml 210 ml Balance -4260 ml -20 ml Intake Oral 140 ml 190 ml Output Urine Total 1400 ml 210 ml Hemodialysis UF 3000 ml # Voids 3 3 Laboratory Tests 05/22/20 08:35: White Blood Count 6.6, Red Blood Count 3.92L, Hemoglobin 11.9L, Hematocrit 37.0L , Mean Corpuscular Volume 95, Mean Corpuscular Hemoglobin 30.4, Mean Corpuscular Hemoglobin Concent 32.1, Red Cell Distribution Width 16.8H, Platelet Count 164, Mean Platelet Volume 8.0, Neutrophils (%) (Auto) 82.9H, Lymphocytes (%) (Auto) 6.6L, Monocytes (%) (Auto) 8.2, Eosinophils (%) (Auto) 1.4, Basophils (%) (Auto) 1.0, Sodium Level 137, Potassium Level 5.1, Chloride Level 98, Carbon Dioxide Level 30, Anion Gap 10, Blood Urea Nitrogen 65H, Creatinine 7.6H, Estimat Glomerular Filtration Rate 7.1, Glucose Level 182#H, Uric Acid 4.5, Calcium Level 9.1, Phosphorus Level 4.9, Magnesium Level 2.4, Total Bilirubin 0.5, Aspartate Amino Transf (AST/SGOT) 16, Alanine Aminotransferase (ALT/SGPT) 12, Alkaline Phosphatase 84, C-Reactive Protein, Quantitative 7.8H, Pro-B-Type Natriuretic Peptide 21176R, Total Protein 7.2, Albumin 2.6L, Globulin 4.6, Albumin/Globulin Ratio 0.6L Height (Feet): 5 Height (Inches): 2.00 Weight (Pounds): 132 General Appearance: WD/WN EENT: PERRL/EOMI Neck: non-tender Cardiovascular: normal rate Respiratory/Chest: lungs clear Abdomen: non tender Extremities: non-tender 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 Suspect dietary indiscretion Renal consult requested and HD session was done yesterday and planned for tomorrow. Resume home medication. Including phosphate binders. # Accelerated Hypertension Nephrology started Nifedipine 60 mg daily - which will be monitored. ( at home Amlodipine was being used per report ) Hydralazine PRN and scheduled 100 mg q 8 hrs Lisinopril 10 mg BID Monitor BP which is in the 130's mmHg now. # Reported history of tuberculosis Department of public health guidelines being followed. TB therapy with Ethambutol, PZA, LVQ, RIfabutin, Pyridoxine was started 05/20 when doses where confirmed due to ESRD and HD regimen AFB sputum x 3 ordered and 2 samples collected Isolation per department for public health, TB controller. ID consultation requested with Dr. Garsia. # Hyperlipidemia statin # Physical deconditioning Monitor activity PT evaluation for baseline and consideration for short term rehab if indicated. Case discussed with the patient and he is open to rehabilitation. 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 He has been accepted at [facility] per family request. PENDING CLEARANCE BY TB CONTROL, DP. DVT ppx with heparin GI ppx with PPI FULL CODE Rehan Johnson MD May 22, 2020 15:05
[2020-05-22 16:00] VITALS: BP 141/54
[2020-05-22] MEDS: Nitroglycerin Patch 0.4mg TDERMAL SCH (18:15)
[2020-05-22] MEDS: Rifabutin 150mg cap ORAL SCH (18:16)
[2020-05-22] MEDS: Pyridoxine 50mg tab ORAL SCH (18:16)
[2020-05-22 20:00] VITALS: BP 136/61
[2020-05-22] MEDS: Terazosin 1mg cap ORAL SCH (21:32)
[2020-05-22] MEDS: Atorvastatin 20mg tab ORAL SCH (21:33)
[2020-05-22 22:05] LABS: ALBUMIN 2.8 G/DL (3.4-5.0); ALBUMIN/GLOBULIN RATIO 0.7 (1.0-2.7); BILIRUBIN,TOTAL 0.4 MG/DL (0.2-1.0); CALCIUM 9.6 MG/DL (8.5-10.1); CREATININE 8.9 MG/DL (0.55-1.30); POTASSIUM 5.7 MMOL/L (3.5-5.1)
[2020-05-23] VITALS: BP 130/86
[2020-05-23 04:00] VITALS: BP 133/70
[2020-05-23] MEDS: HydrALAZINE 50mg tab ORAL SCH ×3 (05:57→21:44)
[2020-05-23 07:42] LABS: BASOPHILS % (AUTO) 1.2 % (0.0-2.0); EOSINOPHILS % (AUTO) 3.3 % (0.0-3.0); HEMATOCRIT 36.8 % (42.0-52.0); HEMOGLOBIN 11.8 G/DL (14.2-18.0); LYMPHOCYTES % (AUTO) 8.8 % (20.0-45.0); MEAN CORPUSCULAR VOLUME 95 FL (80-99); MONOCYTES % (AUTO) 9.1 % (1.0-10.0); NEUTROPHILS % (AUTO) 77.5 % (45.0-75.0); PLATELET COUNT 162 K/UL (150-450); RED BLOOD COUNT 3.88 M/UL (4.70-6.10); RED CELL DISTRIBUTION WIDTH 15.9 % (11.6-14.8); WHITE BLOOD COUNT 7.5 K/UL (4.8-10.8)
[2020-05-23 08:00] VITALS: BP 157/66
[2020-05-23] MEDS: Aspirin Baby 81mg ORAL SCH (08:40)
[2020-05-23] MEDS: Docusate 100mg cap ORAL SCH ×3 (08:41→17:44)
[2020-05-23] MEDS: Lisinopril 10mg tab ORAL SCH ×2 (08:41→17:33)
[2020-05-23] MEDS: Heparin 5000 units/ml inj SUBQ SCH ×2 (08:42→21:00)
--- NOTE | 2020-05-23 10:55 | General Progress Note ---
Subjective Date patient seen: May 23, 2020 Time patient seen: 11:00 ROS Limited/Unobtainable: No Allergies: Coded Allergies: MORPHINE (Verified Allergy, Unknown, 05/18/20) All Systems: reviewed and negative except above Subjective He feels well. Reports limited endurance with PT session. His blood pressure is less controlled today in the 150 mmHg range Objective Last 24 Hour Vital Signs Date Time Temp Pulse Resp B/P (MAP) Pulse Ox O2 Delivery O2 Flow Rate FiO2 05/23/20 09:00 Nasal Cannula 2.0 05/23/20 08:41 157/66 05/23/20 08:40 69 157/66 05/23/20 08:00 97.8 69 20 157/66 (96) 95 05/23/20 08:00 72 05/23/20 05:57 116/64 05/23/20 04:00 97.5 79 19 133/70 (91) 96 05/23/20 04:00 84 05/23/20 00:00 66 05/23/20 00:00 98.1 68 21 130/86 (101) 98 05/22/20 21:33 136/61 05/22/20 21:00 Nasal Cannula 2.0 05/22/20 20:00 98.1 65 24 136/61 (86) 95 05/22/20 20:00 63 05/22/20 18:15 141/54 05/22/20 18:15 141/54 05/22/20 16:00 97.5 55 20 141/54 (83) 98 05/22/20 16:00 69 05/22/20 14:22 127/54 05/22/20 12:00 98.3 54 18 157/54 (88) 98 05/22/20 12:00 79 Intake and Output 05/22/20 05/23/20 19:00 07:00 Intake Total 600 ml 195 ml Output Total 600 ml 75 ml Balance 0 ml 120 ml Intake Oral 600 ml 195 ml Output Urine Total 600 ml 75 ml # Voids 3 2 Laboratory Tests 05/22/20 21:10: Sodium Level 143, Potassium Level 5.7H, Chloride Level 100, Carbon Dioxide Level 32, Anion Gap 11, Blood Urea Nitrogen 82H, Creatinine 8.9H, Estimat Glomerular Filtration Rate 5.9, Glucose Level 121H, Calcium Level 9.6, Total Bilirubin 0.4, Aspartate Amino Transf (AST/SGOT) 14L, Alanine Aminotransferase (ALT/SGPT) 13, Alkaline Phosphatase 91, Total Protein 6.8, Albumin 2.8L, Globulin 4.0, Albumin/Globulin Ratio 0.7L 05/23/20 06:50: White Blood Count 7.5, Red Blood Count 3.88L, Hemoglobin 11.8L, Hematocrit 36.8L , Mean Corpuscular Volume 95, Mean Corpuscular Hemoglobin 30.4, Mean Corpuscular Hemoglobin Concent 32.2, Red Cell Distribution Width 15.9H, Platelet Count 162, Mean Platelet Volume 8.1, Neutrophils (%) (Auto) 77.5H, Lymphocytes (%) (Auto) 8.8L, Monocytes (%) (Auto) 9.1, Eosinophils (%) (Auto) 3.3H, Basophils (%) (Auto ) 1.2, Phosphorus Level 6.6H Height (Feet): 5 Height (Inches): 2.00 Weight (Pounds): 132 General Appearance: WD/WN EENT: PERRL/EOMI Neck: normal alignment Cardiovascular: normal rate Respiratory/Chest: lungs clear Abdomen: non tender Edema: trace edema 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 Suspect dietary indiscretion Renal consult appreciated. Dialysis being coordinated. Resume home medication. Including phosphate binders. # Accelerated Hypertension Nephrology started Nifedipine XL 60 mg daily - which will be increased to 90 mg XL daily ( at home Amlodipine was being used per report ) Hydralazine PRN and scheduled 100 mg q 8 hrs Lisinopril 10 mg BID Monitor BP which is in the 150-160 range today. # Reported history of tuberculosis Department of public health guidelines being followed. TB therapy with Ethambutol, PZA, LVQ, RIfabutin, Pyridoxine was started 05/20 when doses where confirmed due to ESRD and HD regimen AFB sputum x 3 ordered and 2 samples collected Isolation per department for public health, TB controller. ID consultation requested with Dr. Garsia. # Hyperlipidemia statin # Physical deconditioning Monitor activity PT evaluation for baseline and consideration for short term rehab if indicated. Case discussed with the patient and he is open to rehabilitation. transition program managerschool business manager requested. He has been accepted at [facility] per family request. PENDING CLEARANCE BY TB CONTROL, DP. DVT ppx with heparin GI ppx with PPI FULL CODE Rehan Johnson MD May 23, 2020 10:55
[2020-05-23 12:00] VITALS: BP 177/73
[2020-05-23] MEDS ORDERED: NIFEdipine 10mg cap ORAL SCH (12:00)
--- NOTE | 2020-05-23 13:38 | Cardiac Electrophysiology PN ---
Assessment/Plan Assessment/Plan 1. Episode of atrial fibrillation, converted to sinus rhythm. Heart rate is controlled. Continue only on aspirin at this time. If I see the patient has more episode of atrial fibrillation, we will consider anticoagulation. 2. Accelerated hypertension. On Procardia XL 60 mg daily, Hytrin 2 mg at night, hydralazine 100 mg every 8 hours, Lisinopril 10 bid and hemodialysis. 3. Troponin leak, likely due to renal failure. 0.32, 0.16. No CP. His echocardiogram showed EF of 60-65%. 4. Shortness of breath and cough. In TB isolation on Meds 5. ESRD on HD 6. Hyperlipidemia, on Lipitor. Subjective Subjective No CP. In isolation. HD pending today Objective Last 24 Hour Vital Signs Date Time Temp Pulse Resp B/P (MAP) Pulse Ox O2 Delivery O2 Flow Rate FiO2 05/23/20 12:00 87 05/23/20 12:00 97.9 74 20 177/73 (107) 100 05/23/20 12:00 74 177/73 05/23/20 09:00 Nasal Cannula 2.0 05/23/20 08:41 157/66 05/23/20 08:40 69 157/66 05/23/20 08:00 97.8 69 20 157/66 (96) 95 05/23/20 08:00 72 05/23/20 05:57 116/64 05/23/20 04:00 97.5 79 19 133/70 (91) 96 05/23/20 04:00 84 05/23/20 00:00 66 05/23/20 00:00 98.1 68 21 130/86 (101) 98 05/22/20 21:33 136/61 05/22/20 21:00 Nasal Cannula 2.0 05/22/20 20:00 98.1 65 24 136/61 (86) 95 05/22/20 20:00 63 05/22/20 18:15 141/54 05/22/20 18:15 141/54 05/22/20 16:00 97.5 55 20 141/54 (83) 98 05/22/20 16:00 69 05/22/20 14:22 127/54 Intake and Output 05/22/20 05/23/20 19:00 07:00 Intake Total 600 ml 195 ml Output Total 600 ml 75 ml Balance 0 ml 120 ml Intake Oral 600 ml 195 ml Output Urine Total 600 ml 75 ml # Voids 3 2 Laboratory Tests Test 05/22/20 21:10 05/23/20 06:50 Sodium Level 143 MMOL/L (136-145) Potassium Level 5.7 MMOL/L (3.5-5.1) H Chloride Level 100 MMOL/L (98-107) Carbon Dioxide Level 32 MMOL/L (21-32) Anion Gap 11 mmol/L (5-15) Blood Urea Nitrogen 82 mg/dL (7-18) H Creatinine 8.9 MG/DL (0.55-1.30) H Estimat Glomerular Filtration Rate 5.9 mL/min (>60) Glucose Level 121 MG/DL (74-106) H Calcium Level 9.6 MG/DL (8.5-10.1) Total Bilirubin 0.4 MG/DL (0.2-1.0) Aspartate Amino Transf (AST/SGOT) 14 U/L (15-37) L Alanine Aminotransferase (ALT/SGPT) 13 U/L (12-78) Alkaline Phosphatase 91 U/L (46-116) Total Protein 6.8 G/DL (6.4-8.2) Albumin 2.8 G/DL (3.4-5.0) L Globulin 4.0 g/dL Albumin/Globulin Ratio 0.7 (1.0-2.7) L White Blood Count 7.5 K/UL (4.8-10.8) Red Blood Count 3.88 M/UL (4.70-6.10) L Hemoglobin 11.8 G/DL (14.2-18.0) L Hematocrit 36.8 % (42.0-52.0) L Mean Corpuscular Volume 95 FL (80-99) Mean Corpuscular Hemoglobin 30.4 PG (27.0-31.0) Mean Corpuscular Hemoglobin Concent 32.2 G/DL (32.0-36.0) Red Cell Distribution Width 15.9 % (11.6-14.8) H Platelet Count 162 K/UL (150-450) Mean Platelet Volume 8.1 FL (6.5-10.1) Neutrophils (%) (Auto) 77.5 % (45.0-75.0) H Lymphocytes (%) (Auto) 8.8 % (20.0-45.0) L Monocytes (%) (Auto) 9.1 % (1.0-10.0) Eosinophils (%) (Auto) 3.3 % (0.0-3.0) H Basophils (%) (Auto) 1.2 % (0.0-2.0) Phosphorus Level 6.6 MG/DL (2.5-4.9) H Objective HEAD AND NECK: No JVD. LUNGS: Decreased breath sounds. CARDIOVASCULAR: Regular S1 and S2 with no gallop. ABDOMEN: Soft. EXTREMITIES: No pitting edema. Danny Roque MD May 23, 2020 13:38
--- NOTE | 2020-05-23 15:35 | Infectious Diseases Prog Note ---
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 Mild pulmonary venous congestion Afebrile No leukocytosis HLD HTN ESRD on HD TThSat Plan: -Continue TB regimen: Rifabutin, PZA, Ethambuthol, Levaquin -trend LFTs -f/u cx -Monitor CBC/C MP, temperatures -airborne isolation and AFB sp sm/cx x3 per DPH recs Thank you for consulting [facility]. Will continue to follow along with you. Discussed with RN and Dr Johnson. Subjective Allergies: Coded Allergies: MORPHINE (Verified Allergy, Unknown, 05/18/20) afebrile at 2l nc Objective Last 24 Hour Vital Signs Date Time Temp Pulse Resp B/P (MAP) Pulse Ox O2 Delivery O2 Flow Rate FiO2 05/23/20 14:00 177/73 05/23/20 12:00 87 05/23/20 12:00 97.9 74 20 177/73 (107) 100 05/23/20 12:00 74 177/73 05/23/20 09:00 Nasal Cannula 2.0 05/23/20 08:41 157/66 05/23/20 08:40 69 157/66 05/23/20 08:00 97.8 69 20 157/66 (96) 95 05/23/20 08:00 72 05/23/20 05:57 116/64 05/23/20 04:00 97.5 79 19 133/70 (91) 96 05/23/20 04:00 84 05/23/20 00:00 66 05/23/20 00:00 98.1 68 21 130/86 (101) 98 05/22/20 21:33 136/61 05/22/20 21:00 Nasal Cannula 2.0 05/22/20 20:00 98.1 65 24 136/61 (86) 95 05/22/20 20:00 63 05/22/20 18:15 141/54 05/22/20 18:15 141/54 05/22/20 16:00 97.5 55 20 141/54 (83) 98 05/22/20 16:00 69 Height (Feet): 5 Height (Inches): 2.00 Weight (Pounds): 132 General Appearance: WD/WN Lines, tubes and drains: peripheral HEENT: normocephalic, atraumatic Neck: non-tender, normal alignment Respiratory/Chest: lungs clear Cardiovascular/Chest: normal rate Abdomen: non tender Extremities: normal range of motion Skin Exam: normal pigmentation Neurologic: manager mechanical maintenance II-XII grossly normal Microbiology Date/Time Source Procedure Growth Status 05/22/20 10:40 Sputum AFB Specimen Processing Tissue - Final Resulted 05/22/20 10:40 Sputum Acid Fast Bacilli Smear - Final Resulted 05/22/20 10:40 Sputum Acid Fast Bacilli Culture Pending Resulted 05/21/20 19:30 Sputum AFB Specimen Processing Tissue - Final Resulted 05/21/20 19:30 Sputum Acid Fast Bacilli Smear - Final Resulted 05/21/20 19:30 Sputum Acid Fast Bacilli Culture Pending Resulted Laboratory Tests Test 05/22/20 21:10 05/23/20 06:50 Sodium Level 143 MMOL/L (136-145) Potassium Level 5.7 MMOL/L (3.5-5.1) H Chloride Level 100 MMOL/L (98-107) Carbon Dioxide Level 32 MMOL/L (21-32) Anion Gap 11 mmol/L (5-15) Blood Urea Nitrogen 82 mg/dL (7-18) H Creatinine 8.9 MG/DL (0.55-1.30) H Estimat Glomerular Filtration Rate 5.9 mL/min (>60) Glucose Level 121 MG/DL (74-106) H Calcium Level 9.6 MG/DL (8.5-10.1) Total Bilirubin 0.4 MG/DL (0.2-1.0) Aspartate Amino Transf (AST/SGOT) 14 U/L (15-37) L Alanine Aminotransferase (ALT/SGPT) 13 U/L (12-78) Alkaline Phosphatase 91 U/L (46-116) Total Protein 6.8 G/DL (6.4-8.2) Albumin 2.8 G/DL (3.4-5.0) L Globulin 4.0 g/dL Albumin/Globulin Ratio 0.7 (1.0-2.7) L White Blood Count 7.5 K/UL (4.8-10.8) Red Blood Count 3.88 M/UL (4.70-6.10) L Hemoglobin 11.8 G/DL (14.2-18.0) L Hematocrit 36.8 % (42.0-52.0) L Mean Corpuscular Volume 95 FL (80-99) Mean Corpuscular Hemoglobin 30.4 PG (27.0-31.0) Mean Corpuscular Hemoglobin Concent 32.2 G/DL (32.0-36.0) Red Cell Distribution Width 15.9 % (11.6-14.8) H Platelet Count 162 K/UL (150-450) Mean Platelet Volume 8.1 FL (6.5-10.1) Neutrophils (%) (Auto) 77.5 % (45.0-75.0) H Lymphocytes (%) (Auto) 8.8 % (20.0-45.0) L Monocytes (%) (Auto) 9.1 % (1.0-10.0) Eosinophils (%) (Auto) 3.3 % (0.0-3.0) H Basophils (%) (Auto) 1.2 % (0.0-2.0) Phosphorus Level 6.6 MG/DL (2.5-4.9) H Current Medications Medications (Trade) Dose Ordered Sig/Love Route PRN Reason Start Time Stop Time Status Last Admin Dose Admin Acetaminophen (Tylenol) 650 mg Q4H PRN ORAL Mild Pain (Pain Scale 1-3) 05/18/20 15:15 06/17/20 15:14 05/23/20 03:42 Aspirin (ASA) 81 mg DAILY ORAL 05/19/20 15:15 07/03/20 15:14 05/23/20 08:40 Atorvastatin Calcium (Lipitor) 20 mg QHS ORAL 05/18/20 21:00 08/16/20 20:59 05/22/20 21:33 Dextrose (Dextrose 50%) 25 ml Q30M PRN IV Hypoglycemia 05/18/20 15:15 08/16/20 15:14 Dextrose (Dextrose 50%) 50 ml Q30M PRN IV Hypoglycemia 05/18/20 15:15 08/16/20 15:14 Docusate Sodium (Colace) 100 mg TID ORAL 05/20/20 18:00 06/17/20 17:59 05/23/20 12:41 Ethambutol HCl (Myambutol) 1,000 mg TuThSa@1800 ORAL 05/21/20 18:00 06/20/20 17:59 05/21/20 18:15 Heparin Sodium (Porcine) (Heparin 5000 units/ml) 5,000 units EVERY 12 HOURS SUBQ 05/18/20 21:00 07/02/20 20:59 05/23/20 08:42 Hydralazine HCl (Apresoline) 10 mg Q4H PRN IV spb > 160 05/18/20 15:15 08/16/20 15:14 05/20/20 11:47 Hydralazine HCl (Apresoline) 100 mg Q8HR ORAL 05/20/20 22:00 08/18/20 21:59 05/22/20 21:33 Hydromorphone HCl (Dilaudid) 2 mg Q4H PRN IVP Severe Pain (Pain Scale 7-10) 05/18/20 15:15 05/25/20 15:14 Levofloxacin (Levaquin) 750 mg TuThSa@1800 ORAL 05/21/20 18:00 05/28/20 17:59 05/21/20 18:14 Lisinopril (ZestriL) 10 mg BID ORAL 05/21/20 18:00 06/20/20 08:59 05/23/20 08:41 Nifedipine (Procardia XL) 90 mg DAILY ORAL 05/24/20 09:00 06/23/20 08:59 Nitroglycerin (Ntg) 0.4 mg Q5M PRN SL Prn Chest Pain 05/18/20 15:15 06/17/20 15:14 Nitroglycerin (Ntg) 1 patch Q24H TDERMAL 05/19/20 16:00 06/18/20 15:59 05/22/20 18:15 Ondansetron HCl (Zofran) 4 mg Q6H PRN IVP Nausea & Vomiting 05/18/20 15:15 06/17/20 15:14 Pantoprazole (Protonix) 40 mg BID ORAL 05/19/20 18:00 06/18/20 08:59 05/23/20 08:40 Pyrazinamide (Pza) 1,500 mg TuThSa@1800 ORAL 05/21/20 18:00 06/20/20 17:59 05/21/20 18:15 Pyridoxine HCl (Vitamin B6) 50 mg DAILY@1800 ORAL 05/21/20 18:00 06/20/20 17:59 05/22/20 18:16 Rifabutin (Mycobutin) 300 mg DAILY@1800 ORAL 05/21/20 18:00 06/20/20 17:59 05/22/20 18:16 Sevelamer Carbonate (Renvela) 800 mg THREE TIMES A DAY ORAL 05/18/20 18:00 08/16/20 17:59 05/23/20 12:40 Temazepam (Restoril) 15 mg HSPRN PRN ORAL Insomnia 05/21/20 20:15 05/28/20 20:14 05/22/20 21:33 Terazosin HCl (Hytrin) 2 mg QHS ORAL 05/20/20 21:00 06/17/20 17:59 05/22/20 21:32 Nanda Garsia M.D. May 23, 2020 15:35
[2020-05-23 16:00] VITALS: BP 120/62
[2020-05-23] MEDS: Nitroglycerin Patch 0.4mg TDERMAL SCH (16:00)
[2020-05-23] MEDS: Pyridoxine 50mg tab ORAL SCH (17:44)
[2020-05-23] MEDS: Rifabutin 150mg cap ORAL SCH (17:45)
[2020-05-23] MEDS: Levofloxacin 750mg tab ORAL SCH (17:50)
--- NOTE | 2020-05-23 17:50 | Nephrology Progress Note ---
Assessment/Plan Problem List: (1) Hypertensive emergency (2) ESRD (end stage renal disease) on dialysis (3) Fluid overload (4) Anemia in chronic kidney disease (CKD) (5) Hypertensive kidney disease Assessment End-stage renal disease on hemodialysis via left upper arm fistula Monday Volume overload, on chest x-ray evident Hypertension [id number] Plan May 23: Dialyzed May 21. Due for dialysis today. Continue to monitor renal parameters. May 22: Dialyzed yesterday. Stable from renal standpoint of view. Chest x- ray noted. Hemodialysis and ultrafiltration tomorrow. May 21: Due for hemodialysis today. Continue to adjust blood pressure medication. Labs reviewed. Chest x-ray pending. May 20: Hemodialysis tomorrow. Blood pressure medication adjusted. Labs reviewed. Discussed with . Check chest x-ray tomorrow. May 19: Hemodialysis and ultrafiltration today. Adjust blood pressure medication. Start low-dose aspirin and nitrate. Monitor renal parameters. 2D echocardiogram indicative of ejection fraction of 60% and most likely diastolic dysfunction Subjective ROS Limited/Unobtainable: No Objective Objective Last 24 Hour Vital Signs Date Time Temp Pulse Resp B/P (MAP) Pulse Ox O2 Delivery O2 Flow Rate FiO2 05/23/20 17:33 112/50 05/23/20 16:00 68 05/23/20 16:00 97.9 67 20 120/62 (81) 99 05/23/20 16:00 120/62 05/23/20 14:00 177/73 05/23/20 12:00 87 05/23/20 12:00 97.9 74 20 177/73 (107) 100 05/23/20 12:00 74 177/73 05/23/20 09:00 Nasal Cannula 2.0 05/23/20 08:41 157/66 05/23/20 08:40 69 157/66 05/23/20 08:00 97.8 69 20 157/66 (96) 95 05/23/20 08:00 72 05/23/20 05:57 116/64 05/23/20 04:00 97.5 79 19 133/70 (91) 96 05/23/20 04:00 84 05/23/20 00:00 66 05/23/20 00:00 98.1 68 21 130/86 (101) 98 05/22/20 21:33 136/61 11/6/20 21:00 Nasal Cannula 2.0 05/22/20 20:00 98.1 65 24 136/61 (86) 95 05/22/20 20:00 63 05/22/20 18:15 141/54 05/22/20 18:15 141/54 Intake and Output 05/22/20 05/23/20 19:00 07:00 Intake Total 600 ml 195 ml Output Total 600 ml 75 ml Balance 0 ml 120 ml Intake Oral 600 ml 195 ml Output Urine Total 600 ml 75 ml # Voids 3 2 Laboratory Tests 05/22/20 21:10: Sodium Level 143, Potassium Level 5.7H, Chloride Level 100, Carbon Dioxide Level 32, Anion Gap 11, Blood Urea Nitrogen 82H, Creatinine 8.9H, Estimat Glomerular Filtration Rate 5.9, Glucose Level 121H, Calcium Level 9.6, Total Bilirubin 0.4, Aspartate Amino Transf (AST/SGOT) 14L, Alanine Aminotransferase (ALT/SGPT) 13, Alkaline Phosphatase 91, Total Protein 6.8, Albumin 2.8L, Globulin 4.0, Albumin/Globulin Ratio 0.7L 05/23/20 06:50: White Blood Count 7.5, Red Blood Count 3.88L, Hemoglobin 11.8L, Hematocrit 36.8L , Mean Corpuscular Volume 95, Mean Corpuscular Hemoglobin 30.4, Mean Corpuscular Hemoglobin Concent 32.2, Red Cell Distribution Width 15.9H, Platelet Count 162, Mean Platelet Volume 8.1, Neutrophils (%) (Auto) 77.5H, Lymphocytes (%) (Auto) 8.8L, Monocytes (%) (Auto) 9.1, Eosinophils (%) (Auto) 3.3H, Basophils (%) (Auto) 1.2, Phosphorus Level 6.6H Height (Feet): 5 Height (Inches): 2.00 Weight (Pounds): 132 General Appearance: no apparent distress, lethargic Respiratory/Chest: decreased breath sounds Abdomen: soft Objective No change Taye Costa MD May 23, 2020 17:50
[2020-05-23 20:00] VITALS: BP 114/51
[2020-05-23] MEDS: Terazosin 1mg cap ORAL SCH (21:44)
[2020-05-23] MEDS: Atorvastatin 20mg tab ORAL SCH (21:45)
[2020-05-24] VITALS: BP 149/69
[2020-05-24 04:00] VITALS: BP 178/68
[2020-05-24] MEDS: HydrALAZINE 50mg tab ORAL SCH (05:08)
[2020-05-24 07:51] LABS: BASOPHILS % (AUTO) 0.7 % (0.0-2.0); EOSINOPHILS % (AUTO) 1.2 % (0.0-3.0); HEMATOCRIT 39.7 % (42.0-52.0); HEMOGLOBIN 12.6 G/DL (14.2-18.0); LYMPHOCYTES % (AUTO) 8.2 % (20.0-45.0); MEAN CORPUSCULAR VOLUME 96 FL (80-99); MONOCYTES % (AUTO) 8.9 % (1.0-10.0); PLATELET COUNT 164 K/UL (150-450); RED BLOOD COUNT 4.15 M/UL (4.70-6.10); RED CELL DISTRIBUTION WIDTH 16.1 % (11.6-14.8); WHITE BLOOD COUNT 7.8 K/UL (4.8-10.8)
[2020-05-24 08:10] LABS: CALCIUM 9.7 MG/DL (8.5-10.1); PHOSPHORUS 5.6 MG/DL (2.5-4.9)
[2020-05-24 08:17] VITALS: BP 162/41
--- NOTE | 2020-05-24 08:55 | General Progress Note ---
Subjective Date patient seen: May 24, 2020 Time patient seen: 09:00 ROS Limited/Unobtainable: No Allergies: Coded Allergies: MORPHINE (Verified Allergy, Unknown, 05/18/20) All Systems: reviewed and negative except above Subjective He feels well. BP is not controlled. HD done yesterday. Objective Last 24 Hour Vital Signs Date Time Temp Pulse Resp B/P (MAP) Pulse Ox O2 Delivery O2 Flow Rate FiO2 05/24/20 08:19 Nasal Cannula 2.0 05/24/20 08:17 97.7 56 20 162/41 (81) 97 05/24/20 05:08 152/62 05/24/20 04:00 97.2 68 20 178/68 (104) 98 05/24/20 04:00 60 05/24/20 00:00 66 05/24/20 00:00 97.2 66 20 149/69 (95) 100 05/23/20 21:44 114/51 05/23/20 21:00 Nasal Cannula 2.0 05/23/20 20:00 97.3 94 24 114/51 (72) 99 05/23/20 20:00 90 05/23/20 17:33 112/50 05/23/20 16:00 68 05/23/20 16:00 97.9 67 20 120/62 (81) 99 05/23/20 16:00 120/62 05/23/20 14:00 177/73 05/23/20 12:00 87 05/23/20 12:00 97.9 74 20 177/73 (107) 100 05/23/20 12:00 74 177/73 05/23/20 09:00 Nasal Cannula 2.0 Intake and Output 05/23/20 05/24/20 19:00 07:00 Intake Total 118 ml 200 ml Balance 118 ml 200 ml Intake Oral 118 ml 200 ml # Bowel Movements 1 11 Laboratory Tests 05/24/20 07:35: White Blood Count 7.8, Red Blood Count 4.15L, Hemoglobin 12.6L, Hematocrit 39.7L , Mean Corpuscular Volume 96, Mean Corpuscular Hemoglobin 30.3, Mean Corpuscular Hemoglobin Concent 31.6L, Red Cell Distribution Width 16.1H, Platelet Count 164, Mean Platelet Volume 8.1, Neutrophils (%) (Auto) 81.0H, Lymphocytes (%) (Auto) 8.2L, Monocytes (%) (Auto) 8.9, Eosinophils (%) (Auto) 1.2, Basophils (%) (Auto) 0.7, Sodium Level 133L, Potassium Level 6.0*H, Chloride Level 94L, Carbon Dioxide Level 30, Anion Gap 9, Blood Urea Nitrogen 53H, Creatinine 7.0H, Estimat Glomerular Filtration Rate 7.8, Glucose Level 72L, Calcium Level 9.7, Phosphorus Level 5.6H, Total Bilirubin [Pending], Direct Bilirubin [Pending], Aspartate Amino Transf (AST/SGOT) [Pending], Alanine Aminotransferase (ALT/SGPT) [Pending], Alkaline Phosphatase [Pending], Pro-B-Type Natriuretic Peptide [Pending], Total Protein [Pending], Albumin [Pending] Height (Feet): 5 Height (Inches): 2.00 Weight (Pounds): 132 General Appearance: WD/WN EENT: PERRL/EOMI Neck: non-tender Cardiovascular: normal rate Respiratory/Chest: lungs clear Abdomen: non tender 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 Dialysis being coordinated. Last session 05/23 Resumed home medication. Including phosphate binders. # Accelerated Hypertension Nephrology started Nifedipine XL 90 mg XL daily ( at home Amlodipine was being used per report ) Hydralazine PRN and scheduled 100 mg q 8 hrs Lisinopril 10 mg BID Monitor BP which is in the 150-160 range today. # Reported history of tuberculosis Department of public health guidelines being followed. TB therapy with Ethambutol, PZA, LVQ, RIfabutin, Pyridoxine was started 05/20 when doses where confirmed due to ESRD and HD regimen AFB sputum x 3 ordered and 2 samples collected are NEGATIVE Isolation per department for public health, TB controller. ID consultation with Dr. Garsia appreciated. # Isolated episode of atrial fibrillation Converted to NSR Dr. Roque consulting and anticoagulation NOT INDICATED at this time. Telemetry monitoring. # Hyperlipidemia statin # Physical deconditioning Monitor activity PT evaluation for baseline and consideration for short term rehab if indicated. Case discussed with the patient and he is open to rehabilitation. service delivery managergaming manager requested. He has been accepted at [facility] per family request. PENDING CLEARANCE BY TB CONTROL, DP. DVT ppx with heparin GI ppx with PPI FULL CODE Rehan Johnson MD May 24, 2020 08:55
[2020-05-24] MEDS ORDERED: Sodium Polystyrene Sulfonate 15gm Powder ORAL SCH (09:00)
[2020-05-24] MEDS: Terazosin 1mg cap ORAL SCH ×2 (09:00→21:41)
[2020-05-24] MEDS: Docusate 100mg cap ORAL SCH ×3 (09:00→17:55)
[2020-05-24 09:12] LABS: ALANINE AMINOTRANSFERASE 7 U/L (12-78); ALBUMIN 2.8 G/DL (3.4-5.0); ALKALINE PHOSPHATASE 92 U/L (46-116); ASPARTATE AMINO TRANSFERASE 16 U/L (15-37); BILIRUBIN,DIRECT 0.3 MG/DL (0.0-0.3); BILIRUBIN,TOTAL 0.6 MG/DL (0.2-1.0)
[2020-05-24] MEDS: Lisinopril 10mg tab ORAL SCH (09:13)
[2020-05-24] MEDS: Aspirin Baby 81mg ORAL SCH (09:13)
[2020-05-24] MEDS: Heparin 5000 units/ml inj SUBQ SCH ×2 (09:15→21:00)
--- NOTE | 2020-05-24 11:32 | Nephrology Progress Note ---
Assessment/Plan Problem List: (1) Hypertensive emergency (2) ESRD (end stage renal disease) on dialysis (3) Fluid overload (4) Anemia in chronic kidney disease (CKD) (5) Hypertensive kidney disease (6) Tuberculosis Assessment: by history Assessment End-stage renal disease on hemodialysis via left upper arm fistula Monday Volume overload, on chest x-ray evident Hypertension [id number] Plan May 24: Despite of dialysis yesterday, 2 days serum potassium is 6. Will discontinue lisinopril. Kayexalate p.o. ordered. Attempt to dialyze again today. Blood pressure medication adjusted. Continue the rest. Patient on anti-TB medications. May 23: Dialyzed May 21. Due for dialysis today. Continue to monitor renal parameters. May 22: Dialyzed yesterday. Stable from renal standpoint of view. Chest x- ray noted. Hemodialysis and ultrafiltration tomorrow. May 21: Due for hemodialysis today. Continue to adjust blood pressure medication. Labs reviewed. Chest x-ray pending. May 20: Hemodialysis tomorrow. Blood pressure medication adjusted. Labs reviewed. Discussed with . Check chest x-ray tomorrow. May 19: Hemodialysis and ultrafiltration today. Adjust blood pressure medication. Start low-dose aspirin and nitrate. Monitor renal parameters. 2D echocardiogram indicative of ejection fraction of 60% and most likely diastolic dysfunction Subjective ROS Limited/Unobtainable: No Constitutional: Reports: malaise, weakness Objective Objective Last 24 Hour Vital Signs Date Time Temp Pulse Resp B/P (MAP) Pulse Ox O2 Delivery O2 Flow Rate FiO2 05/24/20 11:18 Nasal Cannula 2.0 98 05/24/20 09:13 162/41 05/24/20 09:00 56 162/41 05/24/20 08:19 Nasal Cannula 2.0 05/24/20 08:17 97.7 56 20 162/41 (81) 97 05/24/20 05:08 152/62 05/24/20 04:00 97.2 68 20 178/68 (104) 98 05/24/20 04:00 60 05/24/20 00:00 66 05/24/20 00:00 97.2 66 20 149/69 (95) 100 05/23/20 21:44 114/51 05/23/20 21:00 Nasal Cannula 2.0 05/23/20 20:00 97.3 94 24 114/51 (72) 99 05/23/20 20:00 90 05/23/20 17:33 112/50 05/23/20 16:40 Nasal Cannula 2.0 98 05/23/20 16:40 Nasal Cannula 2.0 98 05/23/20 16:00 68 05/23/20 16:00 97.9 67 20 120/62 (81) 99 05/23/20 16:00 120/62 05/23/20 14:00 177/73 05/23/20 12:00 87 05/23/20 12:00 97.9 74 20 177/73 (107) 100 05/23/20 12:00 74 177/73 Intake and Output 05/23/20 05/24/20 19:00 07:00 Intake Total 238 ml 200 ml Output Total 3075 ml 3000 ml Balance -2837 ml -2800 ml Intake Oral 238 ml 200 ml Output Urine Total 75 ml Hemodialysis UF 3000 ml 3000 ml # Voids 1 # Bowel Movements 2 11 Current Medications Medications (Trade) Dose Ordered Sig/Love Route PRN Reason Start Time Stop Time Status Last Admin Dose Admin Acetaminophen (Tylenol) 650 mg Q4H PRN ORAL Mild Pain (Pain Scale 1-3) 05/18/20 15:15 06/17/20 15:14 05/23/20 03:42 Aspirin (ASA) 81 mg DAILY ORAL 05/19/20 15:15 07/03/20 15:14 05/24/20 09:13 Atorvastatin Calcium (Lipitor) 20 mg QHS ORAL 05/18/20 21:00 08/16/20 20:59 05/23/20 21:45 Dextrose (Dextrose 50%) 25 ml Q30M PRN IV Hypoglycemia 05/18/20 15:15 08/16/20 15:14 Dextrose (Dextrose 50%) 50 ml Q30M PRN IV Hypoglycemia 05/18/20 15:15 08/16/20 15:14 Docusate Sodium (Colace) 100 mg TID ORAL 05/20/20 18:00 06/17/20 17:59 05/23/20 17:44 Ethambutol HCl (Myambutol) 1,000 mg TuThSa@1800 ORAL 05/21/20 18:00 06/20/20 17:59 05/23/20 17:44 Heparin Sodium (Porcine) (Heparin 5000 units/ml) 5,000 units EVERY 12 HOURS SUBQ 05/18/20 21:00 07/02/20 20:59 05/24/20 09:15 Hydralazine HCl (Apresoline) 10 mg Q4H PRN IV spb > 160 05/18/20 15:15 08/16/20 15:14 05/20/20 11:47 Hydromorphone HCl (Dilaudid) 2 mg Q4H PRN IVP Severe Pain (Pain Scale 7-10) 05/18/20 15:15 05/25/20 15:14 05/24/20 10:09 Levofloxacin (Levaquin) 750 mg TuThSa@1800 ORAL 05/21/20 18:00 05/28/20 17:59 05/23/20 17:50 Lisinopril (ZestriL) 10 mg BID ORAL 05/21/20 18:00 06/20/20 08:59 05/24/20 09:13 Minoxidil (Loniten) 5 mg Q8HR ORAL 05/24/20 14:00 08/22/20 13:59 Nifedipine (Procardia XL) 60 mg BID ORAL 05/24/20 09:00 06/23/20 08:59 05/24/20 09:00 Nitroglycerin (Ntg) 0.4 mg Q5M PRN SL Prn Chest Pain 05/18/20 15:15 06/17/20 15:14 Nitroglycerin (Ntg) 1 patch Q24H TDERMAL 05/19/20 16:00 06/18/20 15:59 05/22/20 18:15 Ondansetron HCl (Zofran) 4 mg Q6H PRN IVP Nausea & Vomiting 05/18/20 15:15 06/17/20 15:14 Pantoprazole (Protonix) 40 mg BID ORAL 05/19/20 18:00 06/18/20 08:59 05/24/20 09:13 Pyrazinamide (Pza) 1,500 mg TuThSa@1800 ORAL 05/21/20 18:00 06/20/20 17:59 05/23/20 17:45 Pyridoxine HCl (Vitamin B6) 50 mg DAILY@1800 ORAL 11/5/20 18:00 06/20/20 17:59 05/23/20 17:44 Rifabutin (Mycobutin) 300 mg DAILY@1800 ORAL 05/21/20 18:00 06/20/20 17:59 05/23/20 17:45 Sevelamer Carbonate (Renvela) 800 mg THREE TIMES A DAY ORAL 05/18/20 18:00 08/16/20 17:59 05/24/20 09:13 Temazepam (Restoril) 15 mg HSPRN PRN ORAL Insomnia 05/21/20 20:15 05/28/20 20:14 05/22/20 21:33 Terazosin HCl (Hytrin) 2 mg Q12HR ORAL 05/24/20 09:00 06/17/20 17:59 05/24/20 09:00 Laboratory Tests 05/24/20 07:35: White Blood Count 7.8, Red Blood Count 4.15L, Hemoglobin 12.6L, Hematocrit 39.7L , Mean Corpuscular Volume 96, Mean Corpuscular Hemoglobin 30.3, Mean Corpuscular Hemoglobin Concent 31.6L, Red Cell Distribution Width 16.1H, Platelet Count 164, Mean Platelet Volume 8.1, Neutrophils (%) (Auto) 81.0H, Lymphocytes (%) (Auto) 8.2L, Monocytes (%) (Auto) 8.9, Eosinophils (%) (Auto) 1.2, Basophils (%) (Auto) 0.7, Sodium Level 133L, Potassium Level 6.0*H, Chloride Level 94L, Carbon Dioxide Level 30, Anion Gap 9, Blood Urea Nitrogen 53H, Creatinine 7.0H, Estimat Glomerular Filtration Rate 7.8, Glucose Level 72L, Calcium Level 9.7, Phosphorus Level 5.6H, Total Bilirubin 0.6, Direct Bilirubin 0.3, Aspartate Amino Transf (AST/SGOT) 16, Alanine Aminotransferase (ALT/SGPT) 7L, Alkaline Phosphatase 92, Pro-B-Type Natriuretic Peptide 57015I, Total Protein 7.7, Albumin 2.8L Height (Feet): 5 Height (Inches): 2.00 Weight (Pounds): 132 General Appearance: no apparent distress, lethargic Cardiovascular: bradycardia Respiratory/Chest: decreased breath sounds Abdomen: soft Objective No change Taye Costa MD May 24, 2020 11:31
[2020-05-24 12:00] VITALS: BP 152/62
[2020-05-24] MEDS: Minoxidil 2.5mg tab ORAL SCH ×2 (14:13→21:46)
--- NOTE | 2020-05-24 14:59 | Cardiology Report ---
APPROVED REPORT EKG Measurement Heart [id number] <Conclusion> Wandering pacemaker Cannot rule out Anterior infarct, age undetermined Abnormal ECG
[2020-05-24 16:00] VITALS: BP 134/58
--- NOTE | 2020-05-24 16:29 | Cardiac Electrophysiology PN ---
Assessment/Plan Assessment/Plan 1. Episode of atrial fibrillation, converted to sinus rhythm. Heart rate is controlled. Continue only on aspirin at this time. If I see the patient has more episode of atrial fibrillation, we will consider anticoagulation. 2. Accelerated hypertension. On Procardia XL 60 mg daily, hydralazine 100 mg every 8 hours and hemodialysis. Lisinopril DCed and started on Hytrin and Minoxidil 3. Troponin leak, likely due to renal failure. 0.32, 0.16. No CP. EF of 60- 65%. 4. Shortness of breath and cough. In TB isolation on Meds 5. ESRD on HD per Dr Costa 6. Hyperlipidemia, on Lipitor. 7. Hyperkalemia. Lisinopril DCed and started on Hytrin and Minoxidil DW RN and Dr Costa Subjective Subjective No CP. In isolation. Had HD yesterday and HD pending today again. K was 6 and got Kayoxalate Objective Last 24 Hour Vital Signs Date Time Temp Pulse Resp B/P (MAP) Pulse Ox O2 Delivery O2 Flow Rate FiO2 05/24/20 14:13 162/41 05/24/20 12:00 97.8 101 20 152/62 (92) 97 05/24/20 12:00 74 05/24/20 11:18 Nasal Cannula 2.0 98 05/24/20 09:13 162/41 05/24/20 09:00 56 162/41 05/24/20 08:19 Nasal Cannula 2.0 05/24/20 08:17 97.7 56 20 162/41 (81) 97 05/24/20 08:00 57 05/24/20 05:08 152/62 05/24/20 04:00 97.2 68 20 178/68 (104) 98 05/24/20 04:00 60 05/24/20 00:00 66 05/24/20 00:00 97.2 66 20 149/69 (95) 100 05/23/20 21:44 114/51 05/23/20 21:00 Nasal Cannula 2.0 05/23/20 20:00 97.3 94 24 114/51 (72) 99 05/23/20 20:00 90 05/23/20 17:33 112/50 05/23/20 16:40 Nasal Cannula 2.0 98 05/23/20 16:40 Nasal Cannula 2.0 98 Intake and Output0 05/23/20 05/24/20 19:00 07:00 Intake Total 238 ml 200 ml Output Total 3075 ml 3000 ml Balance -2837 ml -2800 ml Intake Oral 238 ml 200 ml Output Urine Total 75 ml Hemodialysis UF 3000 ml 3000 ml # Voids 1 # Bowel Movements 2 11 Laboratory Tests Test 05/24/20 07:35 05/24/20 14:25 White Blood Count 7.8 K/UL (4.8-10.8) Red Blood Count 4.15 M/UL (4.70-6.10) L Hemoglobin 12.6 G/DL (14.2-18.0) L Hematocrit 39.7 % (42.0-52.0) L Mean Corpuscular Volume 96 FL (80-99) Mean Corpuscular Hemoglobin 30.3 PG (27.0-31.0) Mean Corpuscular Hemoglobin Concent 31.6 G/DL (32.0-36.0) L Red Cell Distribution Width 16.1 % (11.6-14.8) H Platelet Count 164 K/UL (150-450) Mean Platelet Volume 8.1 FL (6.5-10.1) Neutrophils (%) (Auto) 81.0 % (45.0-75.0) H Lymphocytes (%) (Auto) 8.2 % (20.0-45.0) L Monocytes (%) (Auto) 8.9 % (1.0-10.0) Eosinophils (%) (Auto) 1.2 % (0.0-3.0) Basophils (%) (Auto) 0.7 % (0.0-2.0) Sodium Level 133 MMOL/L (136-145) L Potassium Level 6.0 MMOL/L (3.5-5.1) *H Chloride Level 94 MMOL/L (98-107) L Carbon Dioxide Level 30 MMOL/L (21-32) Anion Gap 9 mmol/L (5-15) Blood Urea Nitrogen 53 mg/dL (7-18) H Creatinine 7.0 MG/DL (0.55-1.30) H Estimat Glomerular Filtration Rate 7.8 mL/min (>60) Glucose Level 72 MG/DL (74-106) L Calcium Level 9.7 MG/DL (8.5-10.1) Phosphorus Level 5.6 MG/DL (2.5-4.9) H Total Bilirubin 0.6 MG/DL (0.2-1.0) Direct Bilirubin 0.3 MG/DL (0.0-0.3) Aspartate Amino Transf (AST/SGOT) 16 U/L (15-37) Alanine Aminotransferase (ALT/SGPT) 7 U/L (12-78) L Alkaline Phosphatase 92 U/L (46-116) Pro-B-Type Natriuretic Peptide 38035 pg/mL (0-125) H Total Protein 7.7 G/DL (6.4-8.2) Albumin 2.8 G/DL (3.4-5.0) L POC Whole Blood Glucose Pending Microbiology Date/Time Source Procedure Growth Status 05/22/20 19:00 Sputum AFB Specimen Processing Tissue - Final Resulted 05/22/20 19:00 Sputum Acid Fast Bacilli Smear - Final Resulted 05/22/20 19:00 Sputum Acid Fast Bacilli Culture Pending Resulted 05/22/20 10:40 Sputum AFB Specimen Processing Tissue - Final Resulted 05/22/20 10:40 Sputum Acid Fast Bacilli Smear - Final Resulted 05/22/20 10:40 Sputum Acid Fast Bacilli Culture Pending Resulted 05/21/20 19:30 Sputum AFB Specimen Processing Tissue - Final Resulted 05/21/20 19:30 Sputum Acid Fast Bacilli Smear - Final Resulted 05/21/20 19:30 Sputum Acid Fast Bacilli Culture Pending Resulted Objective HEAD AND NECK: No JVD. LUNGS: Decreased breath sounds. CARDIOVASCULAR: Regular S1 and S2 with no gallop. ABDOMEN: Soft. EXTREMITIES: No pitting edema. Danny Roque MD May 24, 2020 16:29
--- NOTE | 2020-05-24 16:31 | Cardiac Electrophysiology PN ---
Assessment/Plan Assessment/Plan 1. Episode of atrial fibrillation, converted to sinus rhythm. Heart rate is controlled. Continue only on aspirin at this time. If I see the patient has more episode of atrial fibrillation, we will consider anticoagulation. 2. Accelerated hypertension. Procardia XL increased to 60 mg bid, hydrala zine DCed and hemodialysis. Lisinopril DCed and started on Hytrin 2 bid and Minoxidil 5 tid 3. Troponin leak, likely due to renal failure. 0.32, 0.16. No CP. EF of 60- 65%. 4. Shortness of breath and cough. In TB isolation on Meds 5. ESRD on HD per Dr Costa 6. Hyperlipidemia, on Lipitor. 7. Hyperkalemia. Lisinopril DCed and started on Hytrin and Minoxidil DW RN and Dr Costa Subjective Subjective No CP. In isolation. Had HD yesterday and HD pending today again. K was 6 and got Kayoxalate Objective Last 24 Hour Vital Signs Date Time Temp Pulse Resp B/P (MAP) Pulse Ox O2 Delivery O2 Flow Rate FiO2 05/24/20 14:13 162/41 05/24/20 12:00 97.8 101 20 152/62 (92) 97 05/24/20 12:00 74 05/24/20 11:18 Nasal Cannula 2.0 98 05/24/20 09:13 162/41 05/24/20 09:00 56 162/41 05/24/20 08:19 Nasal Cannula 2.0 05/24/20 08:17 97.7 56 20 162/41 (81) 97 05/24/20 08:00 57 05/24/20 05:08 152/62 05/24/20 04:00 97.2 68 20 178/68 (104) 98 05/24/20 04:00 60 05/24/20 00:00 66 05/24/20 00:00 97.2 66 20 149/69 (95) 100 05/23/20 21:44 114/51 05/23/20 21:00 Nasal Cannula 2.0 05/23/20 20:00 97.3 94 24 114/51 (72) 99 05/23/20 20:00 90 05/23/20 17:33 112/50 05/23/20 16:40 Nasal Cannula 2.0 98 05/23/20 16:40 Nasal Cannula 2.0 98 Intake and Output 05/23/20 05/24/20 19:00 07:00 Intake Total 238 ml 200 ml Output Total 3075 ml 3000 ml Balance -2837 ml -2800 ml Intake Oral 238 ml 200 ml Output Urine Total 75 ml Hemodialysis UF 3000 ml 3000 ml # Voids 1 # Bowel Movements 2 11 Laboratory Tests Test 05/24/20 07:35 05/24/20 14:25 White Blood Count 7.8 K/UL (4.8-10.8) Red Blood Count 4.15 M/UL (4.70-6.10) L Hemoglobin 12.6 G/DL (14.2-18.0) L Hematocrit 39.7 % (42.0-52.0) L Mean Corpuscular Volume 96 FL (80-99) Mean Corpuscular Hemoglobin 30.3 PG (27.0-31.0) Mean Corpuscular Hemoglobin Concent 31.6 G/DL (32.0-36.0) L Red Cell Distribution Width 16.1 % (11.6-14.8) H Platelet Count 164 K/UL (150-450) Mean Platelet Volume 8.1 FL (6.5-10.1) Neutrophils (%) (Auto) 81.0 % (45.0-75.0) H Lymphocytes (%) (Auto) 8.2 % (20.0-45.0) L Monocytes (%) (Auto) 8.9 % (1.0-10.0) Eosinophils (%) (Auto) 1.2 % (0.0-3.0) Basophils (%) (Auto) 0.7 % (0.0-2.0) Sodium Level 133 MMOL/L (136-145) L Potassium Level 6.0 MMOL/L (3.5-5.1) *H Chloride Level 94 MMOL/L (98-107) L Carbon Dioxide Level 30 MMOL/L (21-32) Anion Gap 9 mmol/L (5-15) Blood Urea Nitrogen 53 mg/dL (7-18) H Creatinine 7.0 MG/DL (0.55-1.30) H Estimat Glomerular Filtration Rate 7.8 mL/min (>60) Glucose Level 72 MG/DL (74-106) L Calcium Level 9.7 MG/DL (8.5-10.1) Phosphorus Level 5.6 MG/DL (2.5-4.9) H Total Bilirubin 0.6 MG/DL (0.2-1.0) Direct Bilirubin 0.3 MG/DL (0.0-0.3) Aspartate Amino Transf (AST/SGOT) 16 U/L (15-37) Alanine Aminotransferase (ALT/SGPT) 7 U/L (12-78) L Alkaline Phosphatase 92 U/L (46-116) Pro-B-Type Natriuretic Peptide 56342 pg/mL (0-125) H Total Protein 7.7 G/DL (6.4-8.2) Albumin 2.8 G/DL (3.4-5.0) L POC Whole Blood Glucose Pending Microbiology Date/Time Source Procedure Growth Status 05/22/20 19:00 Sputum AFB Specimen Processing Tissue - Final Resulted 05/22/20 19:00 Sputum Acid Fast Bacilli Smear - Final Resulted 05/22/20 19:00 Sputum Acid Fast Bacilli Culture Pending Resulted 05/22/20 10:40 Sputum AFB Specimen Processing Tissue - Final Resulted 05/22/20 10:40 Sputum Acid Fast Bacilli Smear - Final Resulted 05/22/20 10:40 Sputum Acid Fast Bacilli Culture Pending Resulted 05/21/20 19:30 Sputum AFB Specimen Processing Tissue - Final Resulted 05/21/20 19:30 Sputum Acid Fast Bacilli Smear - Final Resulted 05/21/20 19:30 Sputum Acid Fast Bacilli Culture Pending Resulted Objective HEAD AND NECK: No JVD. LUNGS: Decreased breath sounds. CARDIOVASCULAR: Regular S1 and S2 with no gallop. ABDOMEN: Soft. EXTREMITIES: No pitting edema. Danny Roque MD May 24, 2020 16:31
[2020-05-24] MEDS: Nitroglycerin Patch 0.4mg TDERMAL SCH (17:55)
[2020-05-24] MEDS: Pyridoxine 50mg tab ORAL SCH (17:57)
[2020-05-24] MEDS: Rifabutin 150mg cap ORAL SCH (18:00)
[2020-05-24 20:00] VITALS: BP 137/62
[2020-05-24] MEDS: Atorvastatin 20mg tab ORAL SCH (21:46)
[2020-05-25] VITALS (7 sets, daily range): BP systolic 97–135; BP diastolic 45–64
[2020-05-25] MEDS: Minoxidil 2.5mg tab ORAL SCH ×2 (05:24→21:14)
[2020-05-25 07:21] LABS: HEMATOCRIT 40.6 % (42.0-52.0); HEMOGLOBIN 12.8 G/DL (14.2-18.0); MEAN CORPUSCULAR VOLUME 96 FL (80-99); PLATELET COUNT 178 K/UL (150-450); RED BLOOD COUNT 4.22 M/UL (4.70-6.10); WHITE BLOOD COUNT 8.5 K/UL (4.8-10.8)
[2020-05-25 07:42] LABS: ALBUMIN 2.7 G/DL (3.4-5.0); ALBUMIN/GLOBULIN RATIO 0.6 (1.0-2.7); BILIRUBIN,TOTAL 0.5 MG/DL (0.2-1.0); CALCIUM 9.2 MG/DL (8.5-10.1); CREATININE 5.8 MG/DL (0.55-1.30); PHOSPHORUS 7.3 MG/DL (2.5-4.9); POTASSIUM 4.5 MMOL/L (3.5-5.1)
--- NOTE | 2020-05-25 08:57 | General Progress Note ---
Subjective Date patient seen: May 25, 2020 ROS Limited/Unobtainable: No Allergies: Coded Allergies: MORPHINE (Verified Allergy, Unknown, 05/18/20) All Systems: reviewed and negative except above Subjective He feels well. BP is not controlled. HD done yesterday Objective Last 24 Hour Vital Signs Date Time Temp Pulse Resp B/P (MAP) Pulse Ox O2 Delivery O2 Flow Rate FiO2 05/25/20 08:00 97.7 78 19 101/45 (63) 95 05/25/20 05:24 131/56 05/25/20 04:00 84 05/25/20 04:00 97.1 71 19 131/56 (81) 97 05/25/20 00:00 97.4 72 19 135/64 (87) 96 05/25/20 00:00 63 05/24/20 21:46 137/62 05/24/20 21:00 Nasal Cannula 2.0 05/24/20 20:00 97.2 82 20 137/62 (87) 97 05/24/20 20:00 84 05/24/20 17:56 85 158/74 05/24/20 17:55 158/74 05/24/20 16:00 97.9 77 20 134/58 (83) 97 05/24/20 16:00 85 05/24/20 14:13 162/41 05/24/20 12:00 97.8 101 20 152/62 (92) 97 05/24/20 12:00 74 05/24/20 11:18 Nasal Cannula 2.0 98 05/24/20 09:13 162/41 05/24/20 09:00 56 162/41 Intake and Output 05/24/20 05/25/20 19:00 07:00 Intake Total 240 ml Output Total 2000 ml Balance -2000 ml 240 ml Intake Oral 240 ml Hemodialysis UF 2000 ml Laboratory Tests 05/24/20 14:25: POC Whole Blood Glucose [Pending] 05/25/20 05:30: White Blood Count 8.5, Red Blood Count 4.22L, Hemoglobin 12.8L, Hematocrit 40.6L , Mean Corpuscular Volume 96, Mean Corpuscular Hemoglobin 30.3, Mean Corpuscular Hemoglobin Concent 31.5L, Red Cell Distribution Width 16.0H, Platelet Count 178, Mean Platelet Volume 9.1, Neutrophils (%) (Auto) , Lymphocytes (%) (Auto) , Monocytes (%) (Auto) , Eosinophils (%) (Auto) , Basophils (%) (Auto) , Neutrophils % (Manual) [Pending], Lymphocytes % (Manual) [Pending], Platelet Estimate [Pending], Platelet Morphology [Pending], Sodium Level 138, Potassium Level 4.5, Chloride Level 94L, Carbon Dioxide Level 34H, Anion Gap 10, Blood Urea Nitrogen 44H, Creatinine 5.8H, Estimat Glomerular Filtration Rate 9.6, Glucose Level 133H, Calcium Level 9.2, Phosphorus Level 7.3H, Magnesium Level 2.3, Total Bilirubin 0.5, Aspartate Amino Transf (AST/SGOT) 26, Alanine Aminotransferase (ALT/SGPT) 12, Alkaline Phosphatase 91, Total Protein 7.6, Albumin 2.7L, Globulin 4.9, Albumin/Globulin Ratio 0.6L Height (Feet): 5 Height (Inches): 2.00 Weight (Pounds): 132 General Appearance: WD/WN EENT: PERRL/EOMI Neck: non-tender Cardiovascular: normal rate Respiratory/Chest: lungs clear Abdomen: non tender Edema: trace edema Neurologic: spring intern II-XII grossly normal Assessment/Plan Status: stable Assessment/Plan: 74 y/o male admitted to the Hospital with; # Volume overload # ESRD on HD Renal consult appreciated. Dialysis being coordinated. Last session 05/24 Resumed home medication. Including phosphate binders. # Accelerated Hypertension Nephrology started Nifedipine XL 90 mg XL daily ( at home Amlodipine was being used per report ) Hydralazine PRN and scheduled 100 mg q 8 hrs Minoxydil started Monitor BP which is in the 150-160 range today. # Reported history of tuberculosis Department of public health guidelines being followed. TB therapy with Et hambutol, PZA, LVQ, RIfabutin, Pyridoxine was started 05/20 when doses where confirmed due to ESRD and HD regimen AFB sputum x 3 ordered and 3 samples collected are NEGATIVE Isolation per department for public health, TB controller. ID consultation with Dr. Garsia appreciated. # Isolated episode of atrial fibrillation Converted to NSR Dr. Roque consulting and anticoagulation NOT INDICATED at this time. Telemetry monitoring. # Hyperlipidemia statin # Physical deconditioning Monitor activity PT evaluation for baseline and consideration for short term rehab if indicated. Case discussed with the patient and he is open to rehabilitation. 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 He has been accepted at [facility] per family request. PENDING CLEARANCE BY TB CONTROL, [facility]. DVT ppx with heparin GI ppx with PPI FULL CODE Rehan Johnson MD May 25, 2020 08:57
[2020-05-25] MEDS: Docusate 100mg cap ORAL SCH ×3 (09:41→17:20)
[2020-05-25] MEDS: Aspirin Baby 81mg ORAL SCH (09:42)
[2020-05-25] MEDS: Terazosin 1mg cap ORAL SCH ×2 (09:42→21:00)
[2020-05-25] MEDS: Heparin 5000 units/ml inj SUBQ SCH ×2 (09:43→21:15)
--- NOTE | 2020-05-25 12:57 | Infectious Diseases Prog Note ---
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 Mild pulmonary venous congestion Afebrile No leukocytosis HLD HTN ESRD on HD TThSat Plan: -Continue TB regimen: Rifabutin, PZA, Ethambuthol, Levaquin -trend LFTs -f/u cx -Monitor CBC/C MP, temperatures -airborne isolation and AFB sp sm/cx x3 per [facility] recs Thank you for consulting [facility]. Will continue to follow along with you. Discussed with RN and Dr Johnson. Subjective Allergies: Coded Allergies: MORPHINE (Verified Allergy, Unknown, 05/18/20) afebrile at 2l nc afb s mear neg x3 Objective Last 24 Hour Vital Signs Date Time Temp Pulse Resp B/P (MAP) Pulse Ox O2 Delivery O2 Flow Rate FiO2 05/25/20 12:11 85 05/25/20 12:00 97.5 82 20 115/52 (73) 94 05/25/20 09:41 78 111/56 05/25/20 09:00 Nasal Cannula 2.0 05/25/20 08:00 97.7 78 19 101/45 (63) 95 05/25/20 07:29 85 05/25/20 05:24 131/56 05/25/20 04:00 84 05/25/20 04:00 97.1 71 19 131/56 (81) 97 05/25/20 00:00 97.4 72 19 135/64 (87) 96 05/25/20 00:00 63 05/24/20 21:46 137/62 05/24/20 21:00 Nasal Cannula 2.0 05/24/20 20:00 97.2 82 20 137/62 (87) 97 05/24/20 20:00 84 05/24/20 17:56 85 158/74 05/24/20 17:55 158/74 05/24/20 16:00 97.9 77 20 134/58 (83) 97 05/24/20 16:00 85 05/24/20 14:13 162/41 Height (Feet): 5 Height (Inches): 2.00 Weight (Pounds): 132 General Appearance: WD/WN Lines, tubes and drains: peripheral HEENT: normocephalic, atraumatic Neck: non-tender, normal alignment Respiratory/Chest: lungs clear Cardiovascular/Chest: normal rate Abdomen: non tender Extremities: normal range of motion Skin Exam: normal pigmentation 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 Microbiology Date/Time Source Procedure Growth Status 05/22/20 19:00 Sputum AFB Specimen Processing Tissue - Final Resulted 05/22/20 19:00 Sputum Acid Fast Bacilli Smear - Final Resulted 05/22/20 19:00 Sputum Acid Fast Bacilli Culture Pending Resulted Laboratory Tests Test 05/24/20 14:25 05/25/20 05:30 POC Whole Blood Glucose Pending White Blood Count 8.5 K/UL (4.8-10.8) Red Blood Count 4.22 M/UL (4.70-6.10) L Hemoglobin 12.8 G/DL (14.2-18.0) L Hematocrit 40.6 % (42.0-52.0) L Mean Corpuscular Volume 96 FL (80-99) Mean Corpuscular Hemoglobin 30.3 PG (27.0-31.0) Mean Corpuscular Hemoglobin Concent 31.5 G/DL (32.0-36.0) L Red Cell Distribution Width 16.0 % (11.6-14.8) H Platelet Count 178 K/UL (150-450) Mean Platelet Volume 9.1 FL (6.5-10.1) Neutrophils (%) (Auto) % (45.0-75.0) Lymphocytes (%) (Auto) % (20.0-45.0) Monocytes (%) (Auto) % (1.0-10.0) Eosinophils (%) (Auto) % (0.0-3.0) Basophils (%) (Auto) % (0.0-2.0) Differential Total Cells Counted 100 Neutrophils % (Manual) 87 % (45-75) H Lymphocytes % (Manual) 2 % (20-45) L Monocytes % (Manual) 10 % (1-10) Eosinophils % (Manual) 1 % (0-3) Basophils % (Manual) 0 % (0-2) Band Neutrophils 0 % (0-8) Platelet Estimate Adequate Platelet Morphology Normal Anisocytosis 1+ Sodium Level 138 MMOL/L (136-145) Potassium Level 4.5 MMOL/L (3.5-5.1) Chloride Level 94 MMOL/L (98-107) L Carbon Dioxide Level 34 MMOL/L (21-32) H Anion Gap 10 mmol/L (5-15) Blood Urea Nitrogen 44 mg/dL (7-18) H Creatinine 5.8 MG/DL (0.55-1.30) H Estimat Glomerular Filtration Rate 9.6 mL/min (>60) Glucose Level 133 MG/DL (74-106) H Calcium Level 9.2 MG/DL (8.5-10.1) Phosphorus Level 7.3 MG/DL (2.5-4.9) H Magnesium Level 2.3 MG/DL (1.8-2.4) Total Bilirubin 0.5 MG/DL (0.2-1.0) Aspartate Amino Transf (AST/SGOT) 26 U/L (15-37) Alanine Aminotransferase (ALT/SGPT) 12 U/L (12-78) Alkaline Phosphatase 91 U/L (46-116) Total Protein 7.6 G/DL (6.4-8.2) Albumin 2.7 G/DL (3.4-5.0) L Globulin 4.9 g/dL Albumin/Globulin Ratio 0.6 (1.0-2.7) L Current Medications Medications (Trade) Dose Ordered Sig/Love Route PRN Reason Start Time Stop Time Status Last Admin Dose Admin Acetaminophen (Tylenol) 650 mg Q4H PRN ORAL Mild Pain (Pain Scale 1-3) 05/18/20 15:15 06/17/20 15:14 05/23/20 03:42 Aspirin (ASA) 81 mg DAILY ORAL 05/19/20 15:15 07/03/20 15:14 05/25/20 09:42 Atorvastatin Calcium (Lipitor) 20 mg QHS ORAL 05/18/20 21:00 08/16/20 20:59 05/24/20 21:46 Dextrose (Dextrose 50%) 25 ml Q30M PRN IV Hypoglycemia 05/18/20 15:15 08/16/20 15:14 Dextrose (Dextrose 50%) 50 ml Q30M PRN IV Hypoglycemia 05/18/20 15:15 08/16/20 15:14 Docusate Sodium (Colace) 100 mg TID ORAL 05/20/20 18:00 06/17/20 17:59 05/25/20 09:41 Ethambutol HCl (Myambutol) 1,000 mg TuThSa@1800 ORAL 05/21/20 18:00 06/20/20 17:59 05/23/20 17:44 Heparin Sodium (Porcine) (Heparin 5000 units/ml) 5,000 units EVERY 12 HOURS SUBQ 05/18/20 21:00 07/02/20 20:59 05/25/20 09:43 Hydralazine HCl (Apresoline) 10 mg Q4H PRN IV spb > 160 05/18/20 15:15 08/16/20 15:14 05/20/20 11:47 Hydromorphone HCl (Dilaudid) 2 mg Q4H PRN IVP Severe Pain (Pain Scale 7-10) 05/18/20 15:15 05/25/20 15:14 05/24/20 10:09 Levofloxacin (Levaquin) 750 mg TuThSa@1800 ORAL 05/21/20 18:00 06/24/20 17:59 05/23/20 17:50 Minoxidil (Loniten) 5 mg Q8HR ORAL 05/24/20 14:00 08/22/20 13:59 05/25/20 05:24 Nifedipine (Procardia XL) 60 mg BID ORAL 05/24/20 09:00 06/23/20 08:59 05/25/20 09:41 Nitroglycerin (Ntg) 0.4 mg Q5M PRN SL Prn Chest Pain 05/18/20 15:15 06/17/20 15:14 Nitroglycerin (Ntg) 1 patch Q24H TDERMAL 05/19/20 16:00 06/18/20 15:59 05/24/20 17:55 Ondansetron HCl (Zofran) 4 mg Q6H PRN IVP Nausea & Vomiting 05/18/20 15:15 06/17/20 15:14 05/25/20 05:24 Pantoprazole (Protonix) 40 mg BID ORAL 05/19/20 18:00 06/18/20 08:59 05/25/20 09:41 Pyrazinamide (Pza) 1,500 mg TuThSa@1800 ORAL 05/21/20 18:00 06/20/20 17:59 05/23/20 17:45 Pyridoxine HCl (Vitamin B6) 50 mg DAILY@1800 ORAL 05/21/20 18:00 06/20/20 17:59 05/24/20 17:57 Rifabutin (Mycobutin) 300 mg DAILY@1800 ORAL 05/21/20 18:00 06/20/20 17:59 05/24/20 18:00 Sevelamer Carbonate (Renvela) 1,600 mg THREE TIMES A DAY ORAL 05/25/20 09:00 08/16/20 17:59 05/25/20 09:42 Temazepam (Restoril) 15 mg HSPRN PRN ORAL Insomnia 05/21/20 20:15 05/28/20 20:14 05/22/20 21:33 Terazosin HCl (Hytrin) 2 mg Q12HR ORAL 05/24/20 09:00 06/17/20 17:59 05/25/20 09:42 Nanda Garsia M.D. May 25, 2020 12:56
--- NOTE | 2020-05-25 13:24 | Nephrology Progress Note ---
Assessment/Plan Problem List: (1) Hypertensive emergency (2) ESRD (end stage renal disease) on dialysis (3) Fluid overload (4) Anemia in chronic kidney disease (CKD) (5) Hypertensive kidney disease (6) Tuberculosis Assessment: by history Assessment End-stage renal disease on hemodialysis via left upper arm fistula Monday Volume overload, on chest x-ray evident Hypertension [id number] Plan May 25: Dialysed 05/24- Labs reviewed. BP meds adjusted . BP stable. Continue per consultants May 24: Despite of dialysis yesterday, 2 days serum potassium is 6. Will discontinue lisinopril. Kayexalate p.o. ordered. Attempt to dialyze again today. Blood pressure medication adjusted. Continue the rest. Patient on anti-TB medications. May 23: Dialyzed May 21. Due for dialysis today. Continue to monitor renal parameters. May 22: Dialyzed yesterday. Stable from renal standpoint of view. Chest x- ray noted. Hemodialysis and ultrafiltration tomorrow. May 21: Due for hemodialysis today. Continue to adjust blood pressure medication. Labs reviewed. Chest x-ray pending. May 20: Hemodialysis tomorrow. Blood pressure medication adjusted. Labs reviewed. Discussed with . Check chest x-ray tomorrow. May 19: Hemodialysis and ultrafiltration today. Adjust blood pressure medication. Start low-dose aspirin and nitrate. Monitor renal parameters. 2D echocardiogram indicative of ejection fraction of 60% and most likely diastolic dysfunction Subjective ROS Limited/Unobtainable: No Constitutional: Reports: malaise Objective Objective Last 24 Hour Vital Signs Date Time Temp Pulse Resp B/P (MAP) Pulse Ox O2 Delivery O2 Flow Rate FiO2 05/25/20 12:11 85 05/25/20 12:00 97.5 82 20 115/52 (73) 94 05/25/20 09:41 78 111/56 05/25/20 09:00 Nasal Cannula 2.0 05/25/20 08:00 97.7 78 19 101/45 (63) 95 05/25/20 07:29 85 05/25/20 05:24 131/56 05/25/20 04:00 84 05/25/20 04:00 97.1 71 19 131/56 (81) 97 05/25/20 00:00 97.4 72 19 135/64 (87) 96 05/25/20 00:00 63 05/24/20 21:46 137/62 05/24/20 21:00 Nasal Cannula 2.0 05/24/20 20:00 97.2 82 20 137/62 (87) 97 05/24/20 20:00 84 05/24/20 17:56 85 158/74 05/24/20 17:55 158/74 05/24/20 16:00 97.9 77 20 134/58 (83) 97 05/24/20 16:00 85 05/24/20 14:13 162/41 Intake and Output 05/24/20 05/25/20 19:00 07:00 Intake Total 240 ml Output Total 2000 ml Balance -2000 ml 240 ml Intake Oral 240 ml Hemodialysis UF 2000 ml Current Medications Medications (Trade) Dose Ordered Sig/Love Route PRN Reason Start Time Stop Time Status Last Admin Dose Admin Acetaminophen (Tylenol) 650 mg Q4H PRN ORAL Mild Pain (Pain Scale 1-3) 05/18/20 15:15 06/17/20 15:14 05/23/20 03:42 Aspirin (ASA) 81 mg DAILY ORAL 05/19/20 15:15 07/03/20 15:14 05/25/20 09:42 Atorvastatin Calcium (Lipitor) 20 mg QHS ORAL 05/18/20 21:00 08/16/20 20:59 05/24/20 21:46 Dextrose (Dextrose 50%) 25 ml Q30M PRN IV Hypoglycemia 05/18/20 15:15 08/16/20 15:14 Dextrose (Dextrose 50%) 50 ml Q30M PRN IV Hypoglycemia 05/18/20 15:15 08/16/20 15:14 Docusate Sodium (Colace) 100 mg TID ORAL 05/20/20 18:00 06/17/20 17:59 05/25/20 09:41 Ethambutol HCl (Myambutol) 1,000 mg TuThSa@1800 ORAL 05/21/20 18:00 06/20/20 17:59 05/23/20 17:44 Heparin Sodium (Porcine) (Heparin 5000 units/ml) 5,000 units EVERY 12 HOURS SUBQ 05/18/20 21:00 07/02/20 20:59 05/25/20 09:43 Hydralazine HCl (Apresoline) 10 mg Q4H PRN IV spb > 160 05/18/20 15:15 08/16/20 15:14 05/20/20 11:47 Hydromorphone HCl (Dilaudid) 2 mg Q4H PRN IVP Severe Pain (Pain Scale 7-10) 05/18/20 15:15 05/25/20 15:14 05/24/20 10:09 Levofloxacin (Levaquin) 750 mg TuThSa@1800 ORAL 05/21/20 18:00 06/24/20 17:59 05/23/20 17:50 Minoxidil (Loniten) 5 mg Q8HR ORAL 05/24/20 14:00 08/22/20 13:59 05/25/20 05:24 Nifedipine (Procardia XL) 60 mg BID ORAL 05/24/20 09:00 06/23/20 08:59 05/25/20 09:41 Nitroglycerin (Ntg) 0.4 mg Q5M PRN SL Prn Chest Pain 05/18/20 15:15 06/17/20 15:14 Nitroglycerin (Ntg) 1 patch Q24H TDERMAL 05/19/20 16:00 06/18/20 15:59 05/24/20 17:55 Ondansetron HCl (Zofran) 4 mg Q6H PRN IVP Nausea & Vomiting 05/18/20 15:15 06/17/20 15:14 05/25/20 05:24 Pantoprazole (Protonix) 40 mg BID ORAL 05/19/20 18:00 06/18/20 08:59 05/25/20 09:41 Pyrazinamide (Pza) 1,500 mg TuThSa@1800 ORAL 05/21/20 18:00 06/20/20 17:59 05/23/20 17:45 Pyridoxine HCl (Vitamin B6) 50 mg DAILY@1800 ORAL 05/21/20 18:00 06/20/20 17:59 05/24/20 17:57 Rifabutin (Mycobutin) 300 mg DAILY@1800 ORAL 05/21/20 18:00 06/20/20 17:59 05/24/20 18:00 Sevelamer Carbonate (Renvela) 1,600 mg THREE TIMES A DAY ORAL 05/25/20 09:00 08/16/20 17:59 05/25/20 09:42 Temazepam (Restoril) 15 mg HSPRN PRN ORAL Insomnia 05/21/20 20:15 05/28/20 20:14 05/22/20 21:33 Terazosin HCl (Hytrin) 2 mg Q12HR ORAL 05/24/20 09:00 06/17/20 17:59 05/25/20 09:42 Laboratory Tests 05/24/20 14:25: POC Whole Blood Glucose [Pending] 05/25/20 05:30: White Blood Count 8.5, Red Blood Count 4.22L, Hemoglobin 12.8L, Hematocrit 40.6L , Mean Corpuscular Volume 96, Mean Corpuscular Hemoglobin 30.3, Mean Corpuscular Hemoglobin Concent 31.5L, Red Cell Distribution Width 16.0H, Platelet Count 178, Mean Platelet Volume 9.1, Neutrophils (%) (Auto) , Lymphocytes (%) (Auto) , Monocytes (%) (Auto) , Eosinophils (%) (Auto) , Basophils (%) (Auto) , Differential Total Cells Counted 100, Neutrophils % (Manual) 87H, Lymphocytes % (Manual) 2L, Monocytes % (Manual) 10, Eosinophils % (Manual) 1, Basophils % (Manual) 0, Band Neutrophils 0, Platelet Estimate Adequate, Platelet Morphology Normal, Anisocytosis 1+, Sodium Level 138, Potassium Level 4.5, Chloride Level 94L, Carbon Dioxide Level 34H, Anion Gap 10, Blood Urea Nitrogen 44H, Creatinine 5.8H, Estimat Glomerular Filtration Rate 9.6, Glucose Level 133H, Calcium Level 9.2, Phosphorus Level 7.3H, Magnesium Level 2.3, Total Bilirubin 0.5, Aspartate Amino Transf (AST/SGOT) 26, Alanine Aminotransferase (ALT/SGPT) 12, Alkaline Phosphatase 91, Total Protein 7.6, Albumin 2.7L, Globulin 4.9, Albumin/Globulin Ratio 0.6L Height (Feet): 5 Height (Inches): 2.00 Weight (Pounds): 132 General Appearance: no apparent distress Objective No change Taye Costa MD May 25, 2020 13:24
--- NOTE | 2020-05-25 14:30 | Cardiac Electrophysiology PN ---
Assessment/Plan Assessment/Plan 1. Episode of atrial fibrillation, converted to sinus rhythm. Heart rate is controlled. Continue only on aspirin at this time. If I see the patient has more episode of atrial fibrillation, we will consider anticoagulation. 2. Accelerated hypertension. On Procardia XL 60 mg bid, hemodialysis, Hytrin 2 bid and Minoxidil 5 tid 3. Troponin leak, likely due to renal failure. 0.32, 0.16. No CP. EF of 60-65% . 4. Shortness of breath and cough. In TB isolation on Meds 5. ESRD on HD per Dr Costa 6. Hyperlipidemia, on Lipitor. 7. Hyperkalemia. Lisinopril DCed and started on Hytrin and Minoxidil DW RN and Dr Costa Subjective Subjective No CP. In isolation. Had HD yesterday and HD pending today again. Got Kayoxalate Objective Last 24 Hour Vital Signs Date Time Temp Pulse Resp B/P (MAP) Pulse Ox O2 Delivery O2 Flow Rate FiO2 05/25/20 12:11 85 05/25/20 12:00 97.5 82 20 115/52 (73) 94 05/25/20 09:41 78 111/56 05/25/20 09:00 Nasal Cannula 2.0 05/25/20 08:00 97.7 78 19 101/45 (63) 95 05/25/20 07:29 85 05/25/20 05:24 131/56 05/25/20 04:00 84 05/25/20 04:00 97.1 71 19 131/56 (81) 97 05/25/20 00:00 97.4 72 19 135/64 (87) 96 05/25/20 00:00 63 05/24/20 21:46 137/62 05/24/20 21:00 Nasal Cannula 2.0 05/24/20 20:00 97.2 82 20 137/62 (87) 97 05/24/20 20:00 84 05/24/20 17:56 85 158/74 05/24/20 17:55 158/74 05/24/20 16:00 97.9 77 20 134/58 (83) 97 05/24/20 16:00 85 Intake and Output 05/24/20 05/25/20 19:00 07:00 Intake Total 240 ml Output Total 2000 ml Balance -2000 ml 240 ml Intake Oral 240 ml Hemodialysis UF 2000 ml Laboratory Tests Test 05/25/20 05:30 White Blood Count 8.5 K/UL (4.8-10.8) Red Blood Count 4.22 M/UL (4.70-6.10) L Hemoglobin 12.8 G/DL (14.2-18.0) L Hematocrit 40.6 % (42.0-52.0) L Mean Corpuscular Volume 96 FL (80-99) Mean Corpuscular Hemoglobin 30.3 PG (27.0-31.0) Mean Corpuscular Hemoglobin Concent 31.5 G/DL (32.0-36.0) L Red Cell Distribution Width 16.0 % (11.6-14.8) H Platelet Count 178 K/UL (150-450) Mean Platelet Volume 9.1 FL (6.5-10.1) Neutrophils (%) (Auto) % (45.0-75.0) Lymphocytes (%) (Auto) % (20.0-45.0) Monocytes (%) (Auto) % (1.0-10.0) Eosinophils (%) (Auto) % (0.0-3.0) Basophils (%) (Auto) % (0.0-2.0) Differential Total Cells Counted 100 Neutrophils % (Manual) 87 % (45-75) H Lymphocytes % (Manual) 2 % (20-45) L Monocytes % (Manual) 10 % (1-10) Eosinophils % (Manual) 1 % (0-3) Basophils % (Manual) 0 % (0-2) Band Neutrophils 0 % (0-8) Platelet Estimate Adequate Platelet Morphology Normal Anisocytosis 1+ Sodium Level 138 MMOL/L (136-145) Potassium Level 4.5 MMOL/L (3.5-5.1) Chloride Level 94 MMOL/L (98-107) L Carbon Dioxide Level 34 MMOL/L (21-32) H Anion Gap 10 mmol/L (5-15) Blood Urea Nitrogen 44 mg/dL (7-18) H Creatinine 5.8 MG/DL (0.55-1.30) H Estimat Glomerular Filtration Rate 9.6 mL/min (>60) Glucose Level 133 MG/DL (74-106) H Calcium Level 9.2 MG/DL (8.5-10.1) Phosphorus Level 7.3 MG/DL (2.5-4.9) H Magnesium Level 2.3 MG/DL (1.8-2.4) Total Bilirubin 0.5 MG/DL (0.2-1.0) Aspartate Amino Transf (AST/SGOT) 26 U/L (15-37) Alanine Aminotransferase (ALT/SGPT) 12 U/L (12-78) Alkaline Phosphatase 91 U/L (46-116) Total Protein 7.6 G/DL (6.4-8.2) Albumin 2.7 G/DL (3.4-5.0) L Globulin 4.9 g/dL Albumin/Globulin Ratio 0.6 (1.0-2.7) L Microbiology Date/Time Source Procedure Growth Status 05/22/20 19:00 Sputum AFB Specimen Processing Tissue - Final Resulted 05/22/20 19:00 Sputum Acid Fast Bacilli Smear - Final Resulted 05/22/20 19:00 Sputum Acid Fast Bacilli Culture Pending Resulted Objective HEAD AND NECK: No JVD. LUNGS: Decreased breath sounds. CARDIOVASCULAR: Regular S1 and S2 with no gallop. ABDOMEN: Soft. EXTREMITIES: No pitting edema. Danny Roque MD May 25, 2020 14:30
[2020-05-25] MEDS: Nitroglycerin Patch 0.4mg TDERMAL SCH (15:52)
[2020-05-25] MEDS: Rifabutin 150mg cap ORAL SCH (17:20)
[2020-05-25] MEDS: Pyridoxine 50mg tab ORAL SCH (17:20)
[2020-05-25] MEDS: Atorvastatin 20mg tab ORAL SCH (21:14)
[2020-05-26] VITALS (7 sets, daily range): BP systolic 100–155; BP diastolic 42–67
[2020-05-26] MEDS: Minoxidil 2.5mg tab ORAL SCH ×3 (06:00→21:05)
[2020-05-26 07:44] LABS: BASOPHILS % (AUTO) 0.7 % (0.0-2.0); EOSINOPHILS % (AUTO) 1.8 % (0.0-3.0); HEMATOCRIT 37.6 % (42.0-52.0); HEMOGLOBIN 11.8 G/DL (14.2-18.0); LYMPHOCYTES % (AUTO) 7.6 % (20.0-45.0); MEAN CORPUSCULAR VOLUME 95 FL (80-99); MONOCYTES % (AUTO) 8.8 % (1.0-10.0); NEUTROPHILS % (AUTO) 81.2 % (45.0-75.0); PLATELET COUNT 164 K/UL (150-450); RED BLOOD COUNT 3.93 M/UL (4.70-6.10); RED CELL DISTRIBUTION WIDTH 16.1 % (11.6-14.8); WHITE BLOOD COUNT 7.4 K/UL (4.8-10.8)
[2020-05-26 07:46] LABS: CALCIUM 9.2 MG/DL (8.5-10.1); CREATININE 8.6 MG/DL (0.55-1.30)
[2020-05-26] MEDS: Aspirin Baby 81mg ORAL SCH (09:17)
[2020-05-26] MEDS: Docusate 100mg cap ORAL SCH ×3 (09:17→18:59)
[2020-05-26] MEDS: Heparin 5000 units/ml inj SUBQ SCH ×2 (09:17→21:05)
--- NOTE | 2020-05-26 10:28 | Nephrology Progress Note ---
Assessment/Plan Problem List: (1) Hypertensive emergency (2) ESRD (end stage renal disease) on dialysis (3) Fluid overload (4) Anemia in chronic kidney disease (CKD) (5) Hypertensive kidney disease (6) Tuberculosis Assessment: by history Assessment End-stage renal disease on hemodialysis via left upper arm fistula Monday Volume overload, on chest x-ray evident Hypertension [id number] Plan May 26: Labs reviewed. Blood pressure medication adjusted. Due for dialysis tomorrow. On anti-TB medication. May 25: Dialysed 05/24- Labs reviewed. BP meds adjusted . BP stable. Continue per consultants May 24: Despite of dialysis yesterday, 2 days serum potassium is 6. Will discontinue lisinopril. Kayexalate p.o. ordered. Attempt to dialyze again today. Blood pressure medication adjusted. Continue the rest. Patient on anti-TB medications. May 23: Dialyzed May 21. Due for dialysis today. Continue to monitor renal parameters. May 22: Dialyzed yesterday. Stable from renal standpoint of view. Chest x- ray noted. Hemodialysis and ultrafiltration tomorrow. May 21: Due for hemodialysis today. Continue to adjust blood pressure medication. Labs reviewed. Chest x-ray pending. May 20: Hemodialysis tomorrow. Blood pressure medication adjusted. Labs reviewed. Discussed with . Check chest x-ray tomorrow. May 19: Hemodialysis and ultrafiltration today. Adjust blood pressure medication. Start low-dose aspirin and nitrate. Monitor renal parameters. 2D echocardiogram indicative of ejection fraction of 60% and most likely diastolic dysfunction Subjective ROS Limited/Unobtainable: No Constitutional: Reports: malaise, weakness Objective Objective Last 24 Hour Vital Signs Date Time Temp Pulse Resp B/P (MAP) Pulse Ox O2 Delivery O2 Flow Rate FiO2 05/26/20 06:00 125/60 05/26/20 04:18 98.0 79 18 125/60 (81) 98 05/26/20 00:00 97.1 88 18 100/42 (61) 98 05/26/20 00:00 89 05/25/20 21:14 115/55 05/25/20 21:00 Room Air 05/25/20 20:00 97.0 78 18 115/55 (75) 98 05/25/20 20:00 81 05/25/20 17:23 88 110/45 11/9/20 17:23 88 110/45 (66) 05/25/20 16:00 97.3 82 18 97/46 (63) 96 05/25/20 16:00 75 05/25/20 15:52 97/46 05/25/20 12:11 85 05/25/20 12:00 97.5 82 20 115/52 (73) 94 Intake and Output 05/25/20 05/26/20 19:00 07:00 Intake Total 360 ml 320 ml Balance 360 ml 320 ml Intake Oral 360 ml 320 ml # Voids 1 Current Medications Medications (Trade) Dose Ordered Sig/Love Route PRN Reason Start Time Stop Time Status Last Admin Dose Admin Acetaminophen (Tylenol) 650 mg Q4H PRN ORAL Mild Pain (Pain Scale 1-3) 05/18/20 15:15 06/17/20 15:14 05/23/20 03:42 Aspirin (ASA) 81 mg DAILY ORAL 05/19/20 15:15 07/03/20 15:14 05/26/20 09:17 Atorvastatin Calcium (Lipitor) 20 mg QHS ORAL 05/18/20 21:00 08/16/20 20:59 05/25/20 21:14 Dextrose (Dextrose 50%) 25 ml Q30M PRN IV Hypoglycemia 05/18/20 15:15 08/16/20 15:14 Dextrose (Dextrose 50%) 50 ml Q30M PRN IV Hypoglycemia 05/18/20 15:15 08/16/20 15:14 Docusate Sodium (Colace) 100 mg TID ORAL 05/20/20 18:00 06/17/20 17:59 05/26/20 09:17 Ethambutol HCl (Myambutol) 1,000 mg TuThSa@1800 ORAL 05/21/20 18:00 06/20/20 17:59 05/23/20 17:44 Heparin Sodium (Porcine) (Heparin 5000 units/ml) 5,000 units EVERY 12 HOURS SUBQ 05/18/20 21:00 07/02/20 20:59 05/26/20 09:17 Hydralazine HCl (Apresoline) 10 mg Q4H PRN IV spb > 160 05/18/20 15:15 08/16/20 15:14 05/20/20 11:47 Levofloxacin (Levaquin) 750 mg TuThSa@1800 ORAL 05/21/20 18:00 06/24/20 17:59 05/23/20 17:50 Minoxidil (Loniten) 2.5 mg Q8HR ORAL 05/25/20 22:00 08/22/20 13:59 Nifedipine (Procardia XL) 60 mg BID ORAL 05/24/20 09:00 06/23/20 08:59 05/25/20 09:41 Nitroglycerin (Ntg) 0.4 mg Q5M PRN SL Prn Chest Pain 05/18/20 15:15 06/17/20 15:14 Nitroglycerin (Ntg) 1 patch Q24H TDERMAL 05/19/20 16:00 06/18/20 15:59 05/24/20 17:55 Ondansetron HCl (Zofran) 4 mg Q6H PRN IVP Nausea & Vomiting 05/18/20 15:15 06/17/20 15:14 05/25/20 05:24 Pantoprazole (Protonix) 40 mg BID ORAL 05/19/20 18:00 06/18/20 08:59 05/26/20 09:17 Pyrazinamide (Pza) 1,500 mg TuThSa@1800 ORAL 05/21/20 18:00 06/20/20 17:59 05/23/20 17:45 Pyridoxine HCl (Vitamin B6) 50 mg DAILY@1800 ORAL 05/21/20 18:00 06/20/20 17:59 05/25/20 17:20 Rifabutin (Mycobutin) 300 mg DAILY@1800 ORAL 05/21/20 18:00 06/20/20 17:59 05/25/20 17:20 Sevelamer Carbonate (Renvela) 1,600 mg THREE TIMES A DAY ORAL 05/25/20 09:00 08/16/20 17:59 05/26/20 09:18 Temazepam (Restoril) 15 mg HSPRN PRN ORAL Insomnia 05/21/20 20:15 05/28/20 20:14 05/22/20 21:33 Terazosin HCl (Hytrin) 2 mg Q12HR ORAL 05/24/20 09:00 06/17/20 17:59 05/25/20 09:42 Laboratory Tests 05/26/20 06:58: White Blood Count 7.4, Red Blood Count 3.93L, Hemoglobin 11.8L, Hematocrit 37.6L , Mean Corpuscular Volume 95, Mean Corpuscular Hemoglobin 30.1, Mean Corpuscular Hemoglobin Concent 31.5L, Red Cell Distribution Width 16.1H, Platelet Count 164, Mean Platelet Volume 7.9, Neutrophils (%) (Auto) 81.2H, Lymphocytes (%) (Auto) 7.6L, Monocytes (%) (Auto) 8.8, Eosinophils (%) (Auto) 1.8, Basophils (%) (Auto) 0.7, Sodium Level 139, Potassium Level 4.0, Chloride Level 97L, Carbon Dioxide Level 31, Anion Gap 11, Blood Urea Nitrogen 63H, Creatinine 8.6H, Estimat Glomerular Filtration Rate 6.1, Glucose Level 111H, Calcium Level 9.2 Height (Feet): 5 Height (Inches): 2.00 Weight (Pounds): 132 General Appearance: no apparent distress Objective No change Taye Costa MD May 26, 2020 10:28
[2020-05-26] MEDS: Terazosin 1mg cap ORAL SCH ×2 (11:00→21:00)
--- NOTE | 2020-05-26 11:35 | General Progress Note ---
Subjective Date patient seen: May 26, 2020 Allergies: Coded Allergies: MORPHINE (Verified Allergy, Unknown, 05/18/20) All Systems: reviewed and negative except above Subjective He feels well. BP is better controlled. Objective Last 24 Hour Vital Signs Date Time Temp Pulse Resp B/P (MAP) Pulse Ox O2 Delivery O2 Flow Rate FiO2 05/26/20 08:00 97.4 81 18 131/67 (88) 95 05/26/20 06:00 125/60 05/26/20 04:18 98.0 79 18 125/60 (81) 98 05/26/20 00:00 97.1 88 18 100/42 (61) 98 05/26/20 00:00 89 05/25/20 21:14 115/55 05/25/20 21:00 Room Air 05/25/20 20:00 97.0 78 18 115/55 (75) 98 05/25/20 20:00 81 05/25/20 17:23 88 110/45 05/25/20 17:23 88 110/45 (66) 05/25/20 16:00 97.3 82 18 97/46 (63) 96 05/25/20 16:00 75 05/25/20 15:52 97/46 05/25/20 12:11 85 05/25/20 12:00 97.5 82 20 115/52 (73) 94 Intake and Output 05/25/20 05/26/20 19:00 07:00 Intake Total 360 ml 320 ml Balance 360 ml 320 ml Intake Oral 360 ml 320 ml # Voids 1 Laboratory Tests 05/26/20 06:58: White Blood Count 7.4, Red Blood Count 3.93L, Hemoglobin 11.8L, Hematocrit 37.6L , Mean Corpuscular Volume 95, Mean Corpuscular Hemoglobin 30.1, Mean Corpuscular Hemoglobin Concent 31.5L, Red Cell Distribution Width 16.1H, Platelet Count 164, Mean Platelet Volume 7.9, Neutrophils (%) (Auto) 81.2H, Lymphocytes (%) (Auto) 7.6L, Monocytes (%) (Auto) 8.8, Eosinophils (%) (Auto) 1.8, Basophils (%) (Auto) 0.7, Sodium Level 139, Potassium Level 4.0, Chloride Level 97L, Carbon Dioxide Level 31, Anion Gap 11, Blood Urea Nitrogen 63H, Creatinine 8.6H, Estimat Glomerular Filtration Rate 6.1, Glucose Level 111H, Calcium Level 9.2 Height (Feet): 5 Height (Inches): 2.00 Weight (Pounds): 132 General Appearance: WD/WN EENT: PERRL/EOMI Neck: non-tender Cardiovascular: normal rate Respiratory/Chest: lungs clear Abdomen: non tender 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 Dialysis being coordinated. Last session 05/25 # Accelerated Hypertension Nephrology started Nifedipine XL 60 mg XL daily ( at home Amlodipine was being used per report ) Minoxidil 2.5 mg q 8 hrs Hydralazine PRN and scheduled 100 mg q 8 hrs Monitor BP which is in the 130-140 now. # Reported history of tuberculosis Department of public health guidelines being followed. TB therapy with Ethambutol, PZA, LVQ, RIfabutin, Pyridoxine was started 05/20 when doses where confirmed due to ESRD and HD regimen AFB sputum x 3 ordered and 3 samples collected are NEGATIVE Isolation per department for public health, TB controller. ID consultation with Dr. Garsia appreciated. # Isolated episode of atrial fibrillation Converted to NSR Dr. Roque consulting and anticoagulation NOT INDICATED at this time. # Hyperlipidemia statin # Physical deconditioning Monitor activity PT evaluation for baseline and consideration for short term rehab if indicated. Case discussed with the patient and he is open to rehabilitation. disease case managerrecruiting manager requested. He has been accepted at [facility] per family request. PENDING CLEARANCE BY TB CONTROL, DP. DVT ppx with heparin GI ppx with PPI FULL CODE Rehan Johnson MD May 26, 2020 11:35
--- NOTE | 2020-05-26 11:53 | Cardiac Electrophysiology PN ---
Assessment/Plan Assessment/Plan 1. Episode of atrial fibrillation, converted to sinus rhythm. Heart rate is controlled. Continue only on aspirin at this time. If I see the patient has more episode of atrial fibrillation, we will consider anticoagulation. 2. Accelerated hypertension. On Procardia XL 60 mg daily, Hytrin 2 bid and Minoxidil 2.5 tid and HD 3. Troponin leak, likely due to renal failure. 0.32, 0.16. No CP. EF of 60- 65%. 4. Shortness of breath and cough. In TB isolation on Meds 5. ESRD on HD per Dr Costa 6. Hyperlipidemia, on Lipitor. 7. Hyperkalemia. Lisinopril DCed DW RN and Dr Costa Subjective Subjective No CP. In TB isolation. Had HD yesterday Objective Last 24 Hour Vital Signs Date Time Temp Pulse Resp B/P (MAP) Pulse Ox O2 Delivery O2 Flow Rate FiO2 05/26/20 08:00 97.4 81 18 131/67 (88) 95 05/26/20 06:00 125/60 05/26/20 04:18 98.0 79 18 125/60 (81) 98 05/26/20 00:00 97.1 88 18 100/42 (61) 98 05/26/20 00:00 89 05/25/20 21:14 115/55 05/25/20 21:00 Room Air 05/25/20 20:00 97.0 78 18 115/55 (75) 98 05/25/20 20:00 81 05/25/20 17:23 88 110/45 05/25/20 17:23 88 110/45 (66) 05/25/20 16:00 97.3 82 18 97/46 (63) 96 05/25/20 16:00 75 05/25/20 15:52 97/46 05/25/20 12:11 85 05/25/20 12:00 97.5 82 20 115/52 (73) 94 Intake and Output 05/25/20 05/26/20 19:00 07:00 Intake Total 360 ml 320 ml Balance 360 ml 320 ml Intake Oral 360 ml 320 ml # Voids 1 Laboratory Tests Test 05/26/20 06:58 White Blood Count 7.4 K/UL (4.8-10.8) Red Blood Count 3.93 M/UL (4.70-6.10) L Hemoglobin 11.8 G/DL (14.2-18.0) L Hematocrit 37.6 % (42.0-52.0) L Mean Corpuscular Volume 95 FL (80-99) Mean Corpuscular Hemoglobin 30.1 PG (27.0-31.0) Mean Corpuscular Hemoglobin Concent 31.5 G/DL (32.0-36.0) L Red Cell Distribution Width 16.1 % (11.6-14.8) H Platelet Count 164 K/UL (150-450) Mean Platelet Volume 7.9 FL (6.5-10.1) Neutrophils (%) (Auto) 81.2 % (45.0-75.0) H Lymphocytes (%) (Auto) 7.6 % (20.0-45.0) L Monocytes (%) (Auto) 8.8 % (1.0-10.0) Eosinophils (%) (Auto) 1.8 % (0.0-3.0) Basophils (%) (Auto) 0.7 % (0.0-2.0) Sodium Level 139 MMOL/L (136-145) Potassium Level 4.0 MMOL/L (3.5-5.1) Chloride Level 97 MMOL/L (98-107) L Carbon Dioxide Level 31 MMOL/L (21-32) Anion Gap 11 mmol/L (5-15) Blood Urea Nitrogen 63 mg/dL (7-18) H Creatinine 8.6 MG/DL (0.55-1.30) H Estimat Glomerular Filtration Rate 6.1 mL/min (>60) Glucose Level 111 MG/DL (74-106) H Calcium Level 9.2 MG/DL (8.5-10.1) Objective HEAD AND NECK: No JVD. LUNGS: Decreased breath sounds. CARDIOVASCULAR: Regular S1 and S2 with no gallop. ABDOMEN: Soft. EXTREMITIES: No pitting edema. Danny Roque MD May 26, 2020 11:53
--- NOTE | 2020-05-26 14:02 | Infectious Diseases Prog Note ---
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 Mild pulmonary venous congestion Afebrile No leukocytosis HLD HTN ESRD on HD TThSat Plan: -Continue TB regimen: Rifabutin, PZA, Ethambuthol, Levaquin -trend LFTs -f/u cx -Monitor CBC/C MP, temperatures -airborne isolation and AFB sp sm/cx x3 per H recs Thank you for consulting [facility]. Will continue to follow along with you. Discussed with RN and Dr Johnson. Subjective Allergies: Coded Allergies: MORPHINE (Verified Allergy, Unknown, 05/18/20) afebrile no leukocytosis Objective Last 24 Hour Vital Signs Date Time Temp Pulse Resp B/P (MAP) Pulse Ox O2 Delivery O2 Flow Rate FiO2 05/26/20 09:00 Room Air 05/26/20 08:00 97.4 81 18 131/67 (88) 95 05/26/20 06:00 125/60 05/26/20 04:18 98.0 79 18 125/60 (81) 98 05/26/20 00:00 97.1 88 18 100/42 (61) 98 05/26/20 00:00 89 05/25/20 21:14 115/55 05/25/20 21:00 Room Air 05/25/20 20:00 97.0 78 18 115/55 (75) 98 05/25/20 20:00 81 05/25/20 17:23 88 110/45 05/25/20 17:23 88 110/45 (66) 05/25/20 16:00 97.3 82 18 97/46 (63) 96 05/25/20 16:00 75 05/25/20 15:52 97/46 Height (Feet): 5 Height (Inches): 2.00 Weight (Pounds): 132 General Appearance: WD/WN Lines, tubes and drains: peripheral HEENT: normocephalic, atraumatic Neck: non-tender, normal alignment Respiratory/Chest: lungs clear Cardiovascular/Chest: normal rate Abdomen: non tender Extremities: normal range of motion Skin Exam: normal pigmentation 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 Laboratory Tests Test 05/26/20 06:58 White Blood Count 7.4 K/UL (4.8-10.8) Red Blood Count 3.93 M/UL (4.70-6.10) L Hemoglobin 11.8 G/DL (14.2-18.0) L Hematocrit 37.6 % (42.0-52.0) L Mean Corpuscular Volume 95 FL (80-99) Mean Corpuscular Hemoglobin 30.1 PG (27.0-31.0) Mean Corpuscular Hemoglobin Concent 31.5 G/DL (32.0-36.0) L Red Cell Distribution Width 16.1 % (11.6-14.8) H Platelet Count 164 K/UL (150-450) Mean Platelet Volume 7.9 FL (6.5-10.1) Neutrophils (%) (Auto) 81.2 % (45.0-75.0) H Lymphocytes (%) (Auto) 7.6 % (20.0-45.0) L Monocytes (%) (Auto) 8.8 % (1.0-10.0) Eosinophils (%) (Auto) 1.8 % (0.0-3.0) Basophils (%) (Auto) 0.7 % (0.0-2.0) Sodium Level 139 MMOL/L (136-145) Potassium Level 4.0 MMOL/L (3.5-5.1) Chloride Level 97 MMOL/L (98-107) L Carbon Dioxide Level 31 MMOL/L (21-32) Anion Gap 11 mmol/L (5-15) Blood Urea Nitrogen 63 mg/dL (7-18) H Creatinine 8.6 MG/DL (0.55-1.30) H Estimat Glomerular Filtration Rate 6.1 mL/min (>60) Glucose Level 111 MG/DL (74-106) H Calcium Level 9.2 MG/DL (8.5-10.1) Current Medications Medications (Trade) Dose Ordered Sig/Love Route PRN Reason Start Time Stop Time Status Last Admin Dose Admin Acetaminophen (Tylenol) 650 mg Q4H PRN ORAL Mild Pain (Pain Scale 1-3) 05/18/20 15:15 06/17/20 15:14 05/23/20 03:42 Aspirin (ASA) 81 mg DAILY ORAL 05/19/20 15:15 07/03/20 15:14 05/26/20 09:17 Atorvastatin Calcium (Lipitor) 20 mg QHS ORAL 05/18/20 21:00 08/16/20 20:59 05/25/20 21:14 Dextrose (Dextrose 50%) 25 ml Q30M PRN IV Hypoglycemia 05/18/20 15:15 08/16/20 15:14 Dextrose (Dextrose 50%) 50 ml Q30M PRN IV Hypoglycemia 05/18/20 15:15 08/16/20 15:14 Docusate Sodium (Colace) 100 mg TID ORAL 05/20/20 18:00 06/17/20 17:59 05/26/20 09:17 Ethambutol HCl (Myambutol) 1,000 mg TuThSa@1800 ORAL 05/21/20 18:00 06/20/20 17:59 05/23/20 17:44 Heparin Sodium (Porcine) (Heparin 5000 units/ml) 5,000 units EVERY 12 HOURS SUBQ 05/18/20 21:00 07/02/20 20:59 05/26/20 09:17 Levofloxacin (Levaquin) 750 mg TuThSa@1800 ORAL 05/21/20 18:00 06/24/20 17:59 05/23/20 17:50 Minoxidil (Loniten) 2.5 mg Q8HR ORAL 05/25/20 22:00 08/22/20 13:59 Nifedipine (Procardia XL) 60 mg DAILY ORAL 05/27/20 09:00 06/23/20 08:59 Nitroglycerin (Ntg) 0.4 mg Q5M PRN SL Prn Chest Pain 05/18/20 15:15 06/17/20 15:14 Nitroglycerin (Ntg) 1 patch Q24H TDERMAL 05/19/20 16:00 06/18/20 15:59 05/24/20 17:55 Ondansetron HCl (Zofran) 4 mg Q6H PRN IVP Nausea & Vomiting 05/18/20 15:15 06/17/20 15:14 05/25/20 05:24 Pantoprazole (Protonix) 40 mg BID ORAL 05/19/20 18:00 06/18/20 08:59 05/26/20 09:17 Pyrazinamide (Pza) 1,500 mg TuThSa@1800 ORAL 05/21/20 18:00 12/5/20 17:59 05/23/20 17:45 Pyridoxine HCl (Vitamin B6) 50 mg DAILY@1800 ORAL 05/21/20 18:00 06/20/20 17:59 05/25/20 17:20 Rifabutin (Mycobutin) 300 mg DAILY@1800 ORAL 05/21/20 18:00 06/20/20 17:59 05/25/20 17:20 Sevelamer Carbonate (Renvela) 1,600 mg THREE TIMES A DAY ORAL 05/25/20 09:00 08/16/20 17:59 05/26/20 09:18 Temazepam (Restoril) 15 mg HSPRN PRN ORAL Insomnia 05/21/20 20:15 05/28/20 20:14 05/22/20 21:33 Terazosin HCl (Hytrin) 2 mg Q12HR ORAL 05/24/20 09:00 06/17/20 17:59 05/26/20 11:00 Nanda Garsia M.D. May 26, 2020 14:02
[2020-05-26] MEDS: Nitroglycerin Patch 0.4mg TDERMAL SCH (16:58)
[2020-05-26] MEDS: Levofloxacin 750mg tab ORAL SCH (18:59)
[2020-05-26] MEDS: Pyridoxine 50mg tab ORAL SCH (19:03)
[2020-05-26] MEDS: Rifabutin 150mg cap ORAL SCH (19:07)
[2020-05-26] MEDS: Atorvastatin 20mg tab ORAL SCH (21:03)
[2020-05-27] VITALS: BP 98/58
[2020-05-27 04:00] VITALS: BP 119/59
[2020-05-27] MEDS: Minoxidil 2.5mg tab ORAL SCH ×3 (05:48→21:35)
[2020-05-27 06:47] LABS: EOSINOPHILS % (AUTO) 1.8 % (0.0-3.0); HEMOGLOBIN 11.4 G/DL (14.2-18.0); LYMPHOCYTES % (AUTO) 6.3 % (20.0-45.0); MEAN CORPUSCULAR VOLUME 94 FL (80-99); MONOCYTES % (AUTO) 7.5 % (1.0-10.0); NEUTROPHILS % (AUTO) 83.5 % (45.0-75.0); PLATELET COUNT 160 K/UL (150-450); RED BLOOD COUNT 3.73 M/UL (4.70-6.10); RED CELL DISTRIBUTION WIDTH 15.6 % (11.6-14.8); WHITE BLOOD COUNT 8.3 K/UL (4.8-10.8)
[2020-05-27 07:04] LABS: CALCIUM 9.4 MG/DL (8.5-10.1); CREATININE 9.9 MG/DL (0.55-1.30); PHOSPHORUS 7.1 MG/DL (2.5-4.9); POTASSIUM 4.7 MMOL/L (3.5-5.1)
[2020-05-27 08:00] VITALS: BP 155/67
[2020-05-27 09:00] VITALS: BP 135/63
[2020-05-27] MEDS: Heparin 5000 units/ml inj SUBQ SCH ×2 (09:00→21:35)
[2020-05-27] MEDS: Terazosin 1mg cap ORAL SCH ×2 (09:00→21:35)
[2020-05-27] MEDS: Aspirin Baby 81mg ORAL SCH (09:18)
[2020-05-27] MEDS: Docusate 100mg cap ORAL SCH ×3 (09:18→18:45)
--- NOTE | 2020-05-27 10:31 | Infectious Diseases Prog Note ---
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 Mild pulmonary venous congestion Afebrile No leukocytosis HLD HTN ESRD on HD TThSat Plan: -Continue TB regimen: Rifabutin, PZA, Ethambuthol, Levaquin -trend LFTs -f/u cx -Monitor CBC/C MP, temperatures -airborne isolation and AFB sp sm/cx x3 per [facility] recs CMP am -discharge planning per [facility] Thank you for consulting [facility]. Will continue to follow along with you. Discussed with RN and Dr Johnson. Subjective Allergies: Coded Allergies: MORPHINE (Verified Allergy, Unknown, 05/18/20) afebrile no leukocytosis Objective Last 24 Hour Vital Signs Date Time Temp Pulse Resp B/P (MAP) Pulse Ox O2 Delivery O2 Flow Rate FiO2 05/27/20 09:31 Room Air 05/27/20 08:00 98.0 87 18 155/67 (96) 99 05/27/20 05:48 119/59 05/27/20 04:00 97.9 100 20 119/59 (79) 96 05/27/20 00:00 98.1 71 20 98/58 (71) 97 05/26/20 21:05 104/50 05/26/20 20:46 97.9 81 18 104/50 (68) 99 05/26/20 20:24 Nasal Cannula 2.0 05/26/20 16:58 153/63 05/26/20 16:00 97.3 74 18 135/65 (88) 05/26/20 14:34 139/59 05/26/20 14:30 81 139/59 (85) 05/26/20 12:00 97.3 79 18 155/58 (90) 97 Height (Feet): 5 Height (Inches): 2.00 Weight (Pounds): 132 General Appearance: WD/WN Lines, tubes and drains: peripheral HEENT: normocephalic, atraumatic Neck: non-tender, normal alignment Respiratory/Chest: lungs clear Cardiovascular/Chest: normal rate Abdomen: non tender Extremities: normal range of motion Skin Exam: normal pigmentation 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 Laboratory Tests Test 05/27/20 05:45 White Blood Count 8.3 K/UL (4.8-10.8) Red Blood Count 3.73 M/UL (4.70-6.10) L Hemoglobin 11.4 G/DL (14.2-18.0) L Hematocrit 35.0 % (42.0-52.0) L Mean Corpuscular Volume 94 FL (80-99) Mean Corpuscular Hemoglobin 30.7 PG (27.0-31.0) Mean Corpuscular Hemoglobin Concent 32.7 G/DL (32.0-36.0) Red Cell Distribution Width 15.6 % (11.6-14.8) H Platelet Count 160 K/UL (150-450) Mean Platelet Volume 7.8 FL (6.5-10.1) Neutrophils (%) (Auto) 83.5 % (45.0-75.0) H Lymphocytes (%) (Auto) 6.3 % (20.0-45.0) L Monocytes (%) (Auto) 7.5 % (1.0-10.0) Eosinophils (%) (Auto) 1.8 % (0.0-3.0) Basophils (%) (Auto) 1.0 % (0.0-2.0) Sodium Level 135 MMOL/L (136-145) L Potassium Level 4.7 MMOL/L (3.5-5.1) Chloride Level 93 MMOL/L (98-107) L Carbon Dioxide Level 32 MMOL/L (21-32) Anion Gap 10 mmol/L (5-15) Blood Urea Nitrogen 80 mg/dL (7-18) H Creatinine 9.9 MG/DL (0.55-1.30) H Estimat Glomerular Filtration Rate 5.2 mL/min (>60) Glucose Level 121 MG/DL (74-106) H Calcium Level 9.4 MG/DL (8.5-10.1) Phosphorus Level 7.1 MG/DL (2.5-4.9) H Magnesium Level 2.5 MG/DL (1.8-2.4) H Current Medications Medications (Trade) Dose Ordered Sig/Love Route PRN Reason Start Time Stop Time Status Last Admin Dose Admin Acetaminophen (Tylenol) 650 mg Q4H PRN ORAL Mild Pain (Pain Scale 1-3) 05/18/20 15:15 06/17/20 15:14 05/23/20 03:42 Aspirin (ASA) 81 mg DAILY ORAL 05/19/20 15:15 07/03/20 15:14 05/27/20 09:18 Atorvastatin Calcium (Lipitor) 20 mg QHS ORAL 05/18/20 21:00 08/16/20 20:59 05/26/20 21:03 Dextrose (Dextrose 50%) 25 ml Q30M PRN IV Hypoglycemia 05/18/20 15:15 08/16/20 15:14 Dextrose (Dextrose 50%) 50 ml Q30M PRN IV Hypoglycemia 05/18/20 15:15 08/16/20 15:14 Docusate Sodium (Colace) 100 mg TID ORAL 05/20/20 18:00 06/17/20 17:59 05/27/20 09:18 Ethambutol HCl (Myambutol) 1,000 mg TuThSa@1800 ORAL 05/21/20 18:00 06/20/20 17:59 05/26/20 19:01 Heparin Sodium (Porcine) (Heparin 5000 units/ml) 5,000 units EVERY 12 HOURS SUBQ 05/18/20 21:00 07/02/20 20:59 05/26/20 21:05 Levofloxacin (Levaquin) 750 mg TuThSa@1800 ORAL 05/21/20 18:00 06/24/20 17:59 05/26/20 18:59 Minoxidil (Loniten) 2.5 mg Q8HR ORAL 05/25/20 22:00 08/22/20 13:59 05/26/20 14:34 Nifedipine (Procardia XL) 60 mg DAILY ORAL 05/27/20 09:00 06/23/20 08:59 Nitroglycerin (Ntg) 0.4 mg Q5M PRN SL Prn Chest Pain 05/18/20 15:15 06/17/20 15:14 Nitroglycerin (Ntg) 1 patch Q24H TDERMAL 05/19/20 16:00 06/18/20 15:59 05/26/20 16:58 Ondansetron HCl (Zofran) 4 mg Q6H PRN IVP Nausea & Vomiting 05/18/20 15:15 06/17/20 15:14 05/25/20 05:24 Pantoprazole (Protonix) 40 mg BID ORAL 05/19/20 18:00 06/18/20 08:59 05/27/20 09:18 Pyrazinamide (Pza) 1,500 mg TuThSa@1800 ORAL 05/21/20 18:00 06/20/20 17:59 05/26/20 19:02 Pyridoxine HCl (Vitamin B6) 50 mg DAILY@1800 ORAL 05/21/20 18:00 06/20/20 17:59 05/26/20 19:03 Rifabutin (Mycobutin) 300 mg DAILY@1800 ORAL 05/21/20 18:00 06/20/20 17:59 05/26/20 19:07 Sevelamer Carbonate (Renvela) 1,600 mg THREE TIMES A DAY ORAL 05/25/20 09:00 08/16/20 17:59 05/27/20 09:18 Temazepam (Restoril) 15 mg HSPRN PRN ORAL Insomnia 05/21/20 20:15 05/28/20 20:14 05/22/20 21:33 Terazosin HCl (Hytrin) 2 mg Q12HR ORAL 05/24/20 09:00 06/17/20 17:59 05/26/20 11:00 Nanda Garsia M.D. May 27, 2020 10:31
--- NOTE | 2020-05-27 10:43 | Nephrology Progress Note ---
Assessment/Plan Problem List: (1) Hypertensive emergency (2) ESRD (end stage renal disease) on dialysis (3) Fluid overload (4) Anemia in chronic kidney disease (CKD) (5) Hypertensive kidney disease (6) Tuberculosis Assessment: by history Assessment End-stage renal disease on hemodialysis via left upper arm fistula Monday Volume overload, on chest x-ray evident Hypertension [id number] Plan May 27: Due for dialysis today. Phos binders dosage increased. Continue per consultants. May 26: Labs reviewed. Blood pressure medication adjusted. Due for dialysis tomorrow. On anti-TB medication. May 25: Dialysed 05/24- Labs reviewed. BP meds adjusted . BP stable. Continue per consultants May 24: Despite of dialysis yesterday, 2 days serum potassium is 6. Will discontinue lisinopril. Kayexalate p.o. ordered. Attempt to dialyze again today. Blood pressure medication adjusted. Continue the rest. Patient on anti-TB medications. May 23: Dialyzed May 21. Due for dialysis today. Continue to monitor renal parameters. May 22: Dialyzed yesterday. Stable from renal standpoint of view. Chest x- ray noted. Hemodialysis and ultrafiltration tomorrow. May 21: Due for hemodialysis today. Continue to adjust blood pressure medication. Labs reviewed. Chest x-ray pending. May 20: Hemodialysis tomorrow. Blood pressure medication adjusted. Labs reviewed. Discussed with . Check chest x-ray tomorrow. May 19: Hemodialysis and ultrafiltration today. Adjust blood pressure medication. Start low-dose aspirin and nitrate. Monitor renal parameters. 2D echocardiogram indicative of ejection fraction of 60% and most likely diastolic dysfunction Subjective ROS Limited/Unobtainable: No Constitutional: Reports: malaise Objective Objective Last 24 Hour Vital Signs Date Time Temp Pulse Resp B/P (MAP) Pulse Ox O2 Delivery O2 Flow Rate FiO2 05/27/20 09:31 Room Air 05/27/20 08:00 98.0 87 18 155/67 (96) 99 05/27/20 05:48 119/59 05/27/20 04:00 97.9 100 20 119/59 (79) 96 05/27/20 00:00 98.1 71 20 98/58 (71) 97 05/26/20 21:05 104/50 11/10/20 20:46 97.9 81 18 104/50 (68) 99 05/26/20 20:24 Nasal Cannula 2.0 05/26/20 16:58 153/63 05/26/20 16:00 97.3 74 18 135/65 (88) 05/26/20 14:34 139/59 05/26/20 14:30 81 139/59 (85) 05/26/20 12:00 97.3 79 18 155/58 (90) 97 Intake and Output 05/26/20 05/27/20 19:00 07:00 Intake Total 720 ml Balance 720 ml Intake Oral 720 ml # Voids 3 2 Laboratory Tests 05/27/20 05:45: White Blood Count 8.3, Red Blood Count 3.73L, Hemoglobin 11.4L, Hematocrit 35.0L , Mean Corpuscular Volume 94, Mean Corpuscular Hemoglobin 30.7, Mean Corpuscular Hemoglobin Concent 32.7, Red Cell Distribution Width 15.6H, Platelet Count 160, Mean Platelet Volume 7.8, Neutrophils (%) (Auto) 83.5H, Lymphocytes (%) (Auto) 6.3L, Monocytes (%) (Auto) 7.5, Eosinophils (%) (Auto) 1.8, Basophils (%) (Auto) 1.0, Sodium Level 135L, Potassium Level 4.7, Chloride Level 93L, Carbon Dioxide Level 32, Anion Gap 10, Blood Urea Nitrogen 80H, Creatinine 9.9H, Estimat Glomerular Filtration Rate 5.2, Glucose Level 121H, Calcium Level 9.4, Phosphorus Level 7.1H, Magnesium Level 2.5H Height (Feet): 5 Height (Inches): 2.00 Weight (Pounds): 132 General Appearance: no apparent distress Cardiovascular: normal rate Respiratory/Chest: decreased breath sounds Abdomen: soft Objective No change Taye Costa MD May 27, 2020 10:42
--- NOTE | 2020-05-27 12:58 | Cardiac Electrophysiology PN ---
Assessment/Plan Assessment/Plan 1. Episode of atrial fibrillation, converted to sinus rhythm. Heart rate is controlled. Continue aspirin at this time. If I see the patient has more episode of atrial fibrillation, we will consider anticoagulation. 2. Accelerated hypertension. On Procardia XL 60 mg daily Hytrin 2 bid and Mi noxidil 2.5 tid and HD 3. Troponin leak, likely due to renal failure. 0.32, 0.16. No CP. EF of 60- 65%. 4. Shortness of breath and cough. In TB isolation on Meds 5. ESRD on HD per Dr Costa 6. Hyperlipidemia, on Lipitor. 7. Hyperkalemia. KAR RN and Dr Costa Subjective Subjective No CP. In TB isolation HD pending today Objective Last 24 Hour Vital Signs Date Time Temp Pulse Resp B/P (MAP) Pulse Ox O2 Delivery O2 Flow Rate FiO2 05/27/20 09:31 Room Air 05/27/20 08:00 98.0 87 18 155/67 (96) 99 05/27/20 05:48 119/59 05/27/20 04:00 97.9 100 20 119/59 (79) 96 05/27/20 00:00 98.1 71 20 98/58 (71) 97 05/26/20 21:05 104/50 05/26/20 20:46 97.9 81 18 104/50 (68) 99 05/26/20 20:24 Nasal Cannula 2.0 05/26/20 16:58 153/63 05/26/20 16:00 97.3 74 18 135/65 (88) 05/26/20 14:34 139/59 05/26/20 14:30 81 139/59 (85) Intake and Output 05/26/20 05/27/20 19:00 07:00 Intake Total 720 ml Balance 720 ml Intake Oral 720 ml # Voids 3 2 Laboratory Tests Test 05/27/20 05:45 White Blood Count 8.3 K/UL (4.8-10.8) Red Blood Count 3.73 M/UL (4.70-6.10) L Hemoglobin 11.4 G/DL (14.2-18.0) L Hematocrit 35.0 % (42.0-52.0) L Mean Corpuscular Volume 94 FL (80-99) Mean Corpuscular Hemoglobin 30.7 PG (27.0-31.0) Mean Corpuscular Hemoglobin Concent 32.7 G/DL (32.0-36.0) Red Cell Distribution Width 15.6 % (11.6-14.8) H Platelet Count 160 K/UL (150-450) Mean Platelet Volume 7.8 FL (6.5-10.1) Neutrophils (%) (Auto) 83.5 % (45.0-75.0) H Lymphocytes (%) (Auto) 6.3 % (20.0-45.0) L Monocytes (%) (Auto) 7.5 % (1.0-10.0) Eosinophils (%) (Auto) 1.8 % (0.0-3.0) Basophils (%) (Auto) 1.0 % (0.0-2.0) Sodium Level 135 MMOL/L (136-145) L Potassium Level 4.7 MMOL/L (3.5-5.1) Chloride Level 93 MMOL/L (98-107) L Carbon Dioxide Level 32 MMOL/L (21-32) Anion Gap 10 mmol/L (5-15) Blood Urea Nitrogen 80 mg/dL (7-18) H Creatinine 9.9 MG/DL (0.55-1.30) H Estimat Glomerular Filtration Rate 5.2 mL/min (>60) Glucose Level 121 MG/DL (74-106) H Calcium Level 9.4 MG/DL (8.5-10.1) Phosphorus Level 7.1 MG/DL (2.5-4.9) H Magnesium Level 2.5 MG/DL (1.8-2.4) H Objective HEAD AND NECK: No JVD. LUNGS: Decreased breath sounds. CARDIOVASCULAR: Regular S1 and S2 with no gallop. ABDOMEN: Soft. EXTREMITIES: No pitting edema. Danny Roque MD May 27, 2020 12:58
--- NOTE | 2020-05-27 14:25 | General Progress Note ---
Subjective Date patient seen: May 27, 2020 Time patient seen: 14:00 ROS Limited/Unobtainable: Yes Allergies: Coded Allergies: MORPHINE (Verified Allergy, Unknown, 05/18/20) Subjective He feels well. Objective Last 24 Hour Vital Signs Date Time Temp Pulse Resp B/P (MAP) Pulse Ox O2 Delivery O2 Flow Rate FiO2 05/27/20 09:31 Room Air 05/27/20 08:00 98.0 87 18 155/67 (96) 99 05/27/20 05:48 119/59 05/27/20 04:00 97.9 100 20 119/59 (79) 96 05/27/20 00:00 98.1 71 20 98/58 (71) 97 05/26/20 21:05 104/50 05/26/20 20:46 97.9 81 18 104/50 (68) 99 05/26/20 20:24 Nasal Cannula 2.0 05/26/20 16:58 153/63 05/26/20 16:00 97.3 74 18 135/65 (88) 05/26/20 14:34 139/59 05/26/20 14:30 81 139/59 (85) Intake and Output 05/26/20 05/27/20 19:00 07:00 Intake Total 720 ml Balance 720 ml Intake Oral 720 ml # Voids 3 2 Laboratory Tests 05/27/20 05:45: White Blood Count 8.3, Red Blood Count 3.73L, Hemoglobin 11.4L, Hematocrit 35.0L , Mean Corpuscular Volume 94, Mean Corpuscular Hemoglobin 30.7, Mean Corpuscular Hemoglobin Concent 32.7, Red Cell Distribution Width 15.6H, Platelet Count 160, Mean Platelet Volume 7.8, Neutrophils (%) (Auto) 83.5H, Lymphocytes (%) (Auto) 6.3L, Monocytes (%) (Auto) 7.5, Eosinophils (%) (Auto) 1.8, Basophils (%) (Auto) 1.0, Sodium Level 135L, Potassium Level 4.7, Chloride Level 93L, Carbon Dioxide Level 32, Anion Gap 10, Blood Urea Nitrogen 80H, Creatinine 9.9H, Estimat Glomerular Filtration Rate 5.2, Glucose Level 121H, Calcium Level 9.4, Ph osphorus Level 7.1H, Magnesium Level 2.5H Height (Feet): 5 Height (Inches): 2.00 Weight (Pounds): 132 General Appearance: WD/WN EENT: PERRL/EOMI Neck: non-tender Cardiovascular: normal rate Respiratory/Chest: lungs clear Abdomen: non tender Edema: trace edema Neurologic: retail account manager II-XII grossly normal Assessment/Plan Status: stable Assessment/Plan: 74 y/o male admitted to the Hospital with; # Volume overload # ESRD on HD Mon Renal consult appreciated. Dialysis being coordinated. Last session 05/25, DUE TODAY # Accelerated Hypertension Nephrology started Nifedipine XL 60 mg XL daily ( at home Amlodipine was being used per report ) Minoxidil 2.5 mg q 8 hrs Hydralazine PRN and scheduled 100 mg q 8 hrs Monitor BP which is in the 130-140 now. # Reported history of tuberculosis Department of public health guidelines being followed. TB therapy with Ethambutol, PZA, LVQ, RIfabutin, Pyridoxine was started 05/20 when doses where confirmed due to ESRD and HD regimen AFB sputum x 3 ordered and 3 samples collected are NEGATIVE Isolation per department for public health, TB controller. ID consultation with Dr. Garsia appreciated. # Isolated episode of atrial fibrillation Converted to NSR Dr. Roque consulting and anticoagulation NOT INDICATED at this time. # Hyperlipidemia statin # Physical deconditioning Monitor activity PT evaluation for baseline and consideration for short term rehab if indicated. Case discussed with the patient and he is open to rehabilitation. card room managergovernment contracts manager requested. He has been accepted at [facility] per family request. PENDING CLEARANCE BY TB CONTROL, [facility]. DVT ppx with heparin GI ppx with PPI FULL CODE Rehan Johnson MD May 27, 2020 14:25
[2020-05-27 16:00] VITALS: BP 135/63
[2020-05-27] MEDS: Nitroglycerin Patch 0.4mg TDERMAL SCH (18:45)
[2020-05-27] MEDS: Pyridoxine 50mg tab ORAL SCH (18:46)
[2020-05-27] MEDS: Rifabutin 150mg cap ORAL SCH (18:50)
[2020-05-27 20:00] VITALS: BP 162/78
[2020-05-27] MEDS: Atorvastatin 20mg tab ORAL SCH (21:35)
[2020-05-28] VITALS: BP 140/59
[2020-05-28 04:00] VITALS: BP 160/59
[2020-05-28] MEDS: Minoxidil 2.5mg tab ORAL SCH ×3 (05:30→21:11)
[2020-05-28 08:00] VITALS: BP 129/67
--- NOTE | 2020-05-28 08:40 | Nephrology Progress Note ---
Assessment/Plan Problem List: (1) Hypertensive emergency (2) ESRD (end stage renal disease) on dialysis (3) Fluid overload (4) Anemia in chronic kidney disease (CKD) (5) Hypertensive kidney disease (6) Tuberculosis Assessment: by history Assessment End-stage renal disease on hemodialysis via left upper arm fistula Monday Volume overload, on chest x-ray evident Hypertension [id number] Plan May 28: Dialyzed yesterday. Today's labs pending. Next dialysis tomorrow. Continue per consultants. On anti-TB medication. May 27: Due for dialysis today. Phos binders dosage increased. Continue per consultants. May 26: Labs reviewed. Blood pressure medication adjusted. Due for dialysis tomorrow. On anti-TB medication. May 25: Dialysed 05/24- Labs reviewed. BP meds adjusted . BP stable. Continue per consultants May 24: Despite of dialysis yesterday, 2 days serum potassium is 6. Will discontinue lisinopril. Kayexalate p.o. ordered. Attempt to dialyze again today. Blood pressure medication adjusted. Continue the rest. Patient on anti-TB medications. May 23: Dialyzed May 21. Due for dialysis today. Continue to monitor renal parameters. May 22: Dialyzed yesterday. Stable from renal standpoint of view. Chest x- ray noted. Hemodialysis and ultrafiltration tomorrow. May 21: Due for hemodialysis today. Continue to adjust blood pressure medication. Labs reviewed. Chest x-ray pending. May 20: Hemodialysis tomorrow. Blood pressure medication adjusted. Labs reviewed. Discussed with . Check chest x-ray tomorrow. May 19: Hemodialysis and ultrafiltration today. Adjust blood pressure medication. Start low-dose aspirin and nitrate. Monitor renal parameters. 2D echocardiogram indicative of ejection fraction of 60% and most likely diastolic dysfunction Subjective ROS Limited/Unobtainable: No Constitutional: Reports: malaise Objective Objective Last 24 Hour Vital Signs Date Time Temp Pulse Resp B/P (MAP) Pulse Ox O2 Delivery O2 Flow Rate FiO2 05/28/20 08:00 95 17 129/67 (87) 97 05/28/20 05:30 160/59 05/28/20 04:00 97.9 89 19 160/59 (92) 97 05/28/20 00:00 98.4 92 19 140/59 (86) 97 05/27/20 21:35 162/78 05/27/20 21:00 Room Air 05/27/20 20:00 98.0 88 19 162/78 (106) 98 05/27/20 18:45 135/59 05/27/20 16:00 98.4 78 19 135/63 (87) 99 05/27/20 09:31 Room Air 05/27/20 09:00 () Intake and Output 05/27/20 05/28/20 19:00 07:00 Intake Total 720 ml 240 ml Output Total 2000 ml Balance -1280 ml 240 ml Intake Oral 720 ml 240 ml Hemodialysis UF 2000 ml Laboratory Tests 05/28/20 07:45: Sodium Level [Pending], Potassium Level [Pending], Chloride Level [Pending], Carbon Dioxide Level [Pending], Blood Urea Nitrogen [Pending], Creatinine [Pending], Estimat Glomerular Filtration Rate [Pending], Glucose Level [Pending], Calcium Level [Pending], Total Bilirubin [Pending], Aspartate Amino Transf (AST/SGOT) [Pending], Alanine Aminotransferase (ALT/SGPT) [Pending], Alkaline Phosphatase [Pending], Total Protein [Pending], Albumin [Pending], Globulin [Pending] Height (Feet): 5 Height (Inches): 2.00 Weight (Pounds): 132 General Appearance: no apparent distress Objective No change Taye Costa MD May 28, 2020 08:40
[2020-05-28] MEDS: Heparin 5000 units/ml inj SUBQ SCH ×2 (08:49→21:04)
[2020-05-28] MEDS: Aspirin Baby 81mg ORAL SCH (08:53)
[2020-05-28] MEDS: Terazosin 1mg cap ORAL SCH ×2 (08:54→21:02)
[2020-05-28] MEDS: Docusate 100mg cap ORAL SCH ×3 (08:55→17:51)
[2020-05-28 08:59] LABS: ALBUMIN 2.9 G/DL (3.4-5.0); ALBUMIN/GLOBULIN RATIO 0.6 (1.0-2.7); BILIRUBIN,TOTAL 0.6 MG/DL (0.2-1.0); CALCIUM 9.3 MG/DL (8.5-10.1); CREATININE 6.7 MG/DL (0.55-1.30); POTASSIUM 4.2 MMOL/L (3.5-5.1)
--- NOTE | 2020-05-28 10:41 | Cardiac Electrophysiology PN ---
Assessment/Plan Assessment/Plan 1. Episode of atrial fibrillation, converted to sinus rhythm. Heart rate is controlled. Continue aspirin at this time. If I see the patient has more episode of atrial fibrillation, we will consider anticoagulation. 2. Accelerated hypertension. On Procardia XL 60 mg daily, Hytrin 2 bid and M inoxidil 2.5 tid and HD 3. Troponin leak, likely due to renal failure. 0.32, 0.16. No CP. EF of 60- 65%. 4. Shortness of breath and cough. In TB isolation on Meds 5. ESRD on HD per Dr Costa 6. Hyperlipidemia, on Lipitor. 7. Hyperkalemia. KAR RN Subjective Subjective No CP. In TB isolation. HD pending tomorrow. Had sputum today for AFB Objective Last 24 Hour Vital Signs Date Time Temp Pulse Resp B/P (MAP) Pulse Ox O2 Delivery O2 Flow Rate FiO2 05/28/20 08:54 95 129/67 05/28/20 08:00 95 17 129/67 (87) 97 05/28/20 05:30 160/59 05/28/20 04:00 97.9 89 19 160/59 (92) 97 05/28/20 00:00 98.4 92 19 140/59 (86) 97 05/27/20 21:35 162/78 05/27/20 21:00 Room Air 05/27/20 20:00 98.0 88 19 162/78 (106) 98 05/27/20 18:45 135/59 05/27/20 16:00 98.4 78 19 135/63 (87) 99 Intake and Output 05/27/20 05/28/20 19:00 07:00 Intake Total 720 ml 240 ml Output Total 2000 ml Balance -1280 ml 240 ml Intake Oral 720 ml 240 ml Hemodialysis UF 2000 ml Laboratory Tests Test 05/28/20 07:45 Sodium Level 138 MMOL/L (136-145) Potassium Level 4.2 MMOL/L (3.5-5.1) Chloride Level 98 MMOL/L (98-107) Carbon Dioxide Level 33 MMOL/L (21-32) H Anion Gap 8 mmol/L (5-15) Blood Urea Nitrogen 38 mg/dL (7-18) H Creatinine 6.7 MG/DL (0.55-1.30) H Estimat Glomerular Filtration Rate 8.2 mL/min (>60) Glucose Level 161 MG/DL (74-106) H Calcium Level 9.3 MG/DL (8.5-10.1) Total Bilirubin 0.6 MG/DL (0.2-1.0) Aspartate Amino Transf (AST/SGOT) 18 U/L (15-37) Alanine Aminotransferase (ALT/SGPT) 15 U/L (12-78) Alkaline Phosphatase 80 U/L (46-116) Total Protein 7.6 G/DL (6.4-8.2) Albumin 2.9 G/DL (3.4-5.0) L Globulin 4.7 g/dL Albumin/Globulin Ratio 0.6 (1.0-2.7) L Objective HEAD AND NECK: No JVD. LUNGS: Decreased breath sounds. CARDIOVASCULAR: Regular S1 and S2 with no gallop. ABDOMEN: Soft. EXTREMITIES: No pitting edema. Danny Roque MD May 28, 2020 10:41
[2020-05-28 12:00] VITALS: BP 91/43
--- NOTE | 2020-05-28 13:37 | Infectious Diseases Prog Note ---
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 Mild pulmonary venous congestion Afebrile No leukocytosis HLD HTN ESRD on HD TThSat Plan: -Continue TB regimen: Rifabutin, PZA, Ethambuthol, Levaquin -trend LFTs -f/u cx -Monitor CBC/C MP, temperatures -airborne isolation and AFB sp sm/cx x3 per [facility] recs CMP am -discharge planning per [facility] Thank you for consulting [facility]. Will continue to follow along with you. Discussed with RN and Dr Johnson. Subjective Allergies: Coded Allergies: MORPHINE (Verified Allergy, Unknown, 05/18/20) afebrile no leukocytosis LFts normal Objective Last 24 Hour Vital Signs Date Time Temp Pulse Resp B/P (MAP) Pulse Ox O2 Delivery O2 Flow Rate FiO2 05/28/20 08:54 95 129/67 05/28/20 08:30 98.1 05/28/20 08:00 95 17 129/67 (87) 97 05/28/20 05:30 160/59 05/28/20 04:00 97.9 89 19 160/59 (92) 97 05/28/20 00:00 98.4 92 19 140/59 (86) 97 05/27/20 21:35 162/78 05/27/20 21:00 Room Air 05/27/20 20:00 98.0 88 19 162/78 (106) 98 05/27/20 18:45 135/59 05/27/20 16:00 98.4 78 19 135/63 (87) 99 Height (Feet): 5 Height (Inches): 2.00 Weight (Pounds): 132 General Appearance: WD/WN Lines, tubes and drains: peripheral HEENT: normocephalic, atraumatic Neck: non-tender, normal alignment Respiratory/Chest: lungs clear Cardiovascular/Chest: normal rate Abdomen: non tender Extremities: normal range of motion Skin Exam: normal pigmentation Neurologic: phone operator II-XII grossly normal Laboratory Tests Test 05/28/20 06:40 05/28/20 07:45 M. tuberculosis Complex DNA (PCR) Pending Sodium Level 138 MMOL/L (136-145) Potassium Level 4.2 MMOL/L (3.5-5.1) Chloride Level 98 MMOL/L (98-107) Carbon Dioxide Level 33 MMOL/L (21-32) H Anion Gap 8 mmol/L (5-15) Blood Urea Nitrogen 38 mg/dL (7-18) H Creatinine 6.7 MG/DL (0.55-1.30) H Estimat Glomerular Filtration Rate 8.2 mL/min (>60) Glucose Level 161 MG/DL (74-106) H Calcium Level 9.3 MG/DL (8.5-10.1) Total Bilirubin 0.6 MG/DL (0.2-1.0) Aspartate Amino Transf (AST/SGOT) 18 U/L (15-37) Alanine Aminotransferase (ALT/SGPT) 15 U/L (12-78) Alkaline Phosphatase 80 U/L (46-116) Total Protein 7.6 G/DL (6.4-8.2) Albumin 2.9 G/DL (3.4-5.0) L Globulin 4.7 g/dL Albumin/Globulin Ratio 0.6 (1.0-2.7) L Current Medications Medications (Trade) Dose Ordered Sig/Love Route PRN Reason Start Time Stop Time Status Last Admin Dose Admin Acetaminophen (Tylenol) 650 mg Q4H PRN ORAL Mild Pain (Pain Scale 1-3) 05/18/20 15:15 06/17/20 15:14 05/23/20 03:42 Aspirin (ASA) 81 mg DAILY ORAL 05/19/20 15:15 07/03/20 15:14 05/28/20 08:53 Atorvastatin Calcium (Lipitor) 20 mg QHS ORAL 05/18/20 21:00 08/16/20 20:59 05/27/20 21:35 Dextrose (Dextrose 50%) 25 ml Q30M PRN IV Hypoglycemia 05/18/20 15:15 08/16/20 15:14 Dextrose (Dextrose 50%) 50 ml Q30M PRN IV Hypoglycemia 05/18/20 15:15 08/16/20 15:14 Docusate Sodium (Colace) 100 mg TID ORAL 05/20/20 18:00 06/17/20 17:59 05/28/20 08:55 Ethambutol HCl (Myambutol) 1,000 mg TuThSa@1800 ORAL 05/21/20 18:00 06/20/20 17:59 05/26/20 19:01 Heparin Sodium (Porcine) (Heparin 5000 units/ml) 5,000 units EVERY 12 HOURS SUBQ 05/18/20 21:00 07/02/20 20:59 05/28/20 08:49 Levofloxacin (Levaquin) 750 mg TuThSa@1800 ORAL 05/21/20 18:00 06/24/20 17:59 05/26/20 18:59 Minoxidil (Loniten) 2.5 mg Q8HR ORAL 05/25/20 22:00 08/22/20 13:59 05/28/20 05:30 Nifedipine (Procardia XL) 60 mg DAILY ORAL 05/27/20 09:00 06/23/20 08:59 05/28/20 08:54 Nitroglycerin (Ntg) 0.4 mg Q5M PRN SL Prn Chest Pain 05/18/20 15:15 06/17/20 15:14 Nitroglycerin (Ntg) 1 patch Q24H TDERMAL 05/19/20 16:00 06/18/20 15:59 05/27/20 18:45 Ondansetron HCl (Zofran) 4 mg Q6H PRN IVP Nausea & Vomiting 05/18/20 15:15 06/17/20 15:14 05/25/20 05:24 Pantoprazole (Protonix) 40 mg BID ORAL 05/19/20 18:00 06/18/20 08:59 05/28/20 08:55 Pyrazinamide (Pza) 1,500 mg TuThSa@1800 ORAL 05/21/20 18:00 06/20/20 17:59 05/26/20 19:02 Pyridoxine HCl (Vitamin B6) 50 mg DAILY@1800 ORAL 05/21/20 18:00 06/20/20 17:59 05/27/20 18:46 Rifabutin (Mycobutin) 300 mg DAILY@1800 ORAL 05/21/20 18:00 06/20/20 17:59 05/27/20 18:50 Sevelamer Carbonate (Renvela) 2,400 mg THREE TIMES A DAY ORAL 05/27/20 13:00 08/16/20 17:59 05/27/20 18:46 Temazepam (Restoril) 15 mg HSPRN PRN ORAL Insomnia 05/27/20 14:55 06/03/20 14:54 Terazosin HCl (Hytrin) 2 mg Q12HR ORAL 05/24/20 09:00 06/17/20 17:59 05/28/20 08:54 Nanda Garsia M.D. May 28, 2020 13:37
--- NOTE | 2020-05-28 15:22 | General Progress Note ---
Subjective Date patient seen: May 28, 2020 Time patient seen: 16:00 ROS Limited/Unobtainable: No Allergies: Coded Allergies: MORPHINE (Verified Allergy, Unknown, 05/18/20) All Systems: reviewed and negative except above Subjective He feels well. No acute complains. Objective Last 24 Hour Vital Signs Date Time Temp Pulse Resp B/P (MAP) Pulse Ox O2 Delivery O2 Flow Rate FiO2 05/28/20 13:40 91/43 05/28/20 08:54 95 129/67 05/28/20 08:30 98.1 05/28/20 08:00 95 17 129/67 (87) 97 05/28/20 05:30 160/59 05/28/20 04:00 97.9 89 19 160/59 (92) 97 05/28/20 00:00 98.4 92 19 140/59 (86) 97 05/27/20 21:35 162/78 05/27/20 21:00 Room Air 05/27/20 20:00 98.0 88 19 162/78 (106) 98 05/27/20 18:45 135/59 05/27/20 16:00 98.4 78 19 135/63 (87) 99 Intake and Output 05/27/20 05/28/20 19:00 07:00 Intake Total 720 ml 240 ml Output Total 2000 ml Balance -1280 ml 240 ml Intake Oral 720 ml 240 ml Hemodialysis UF 2000 ml Laboratory Tests 05/28/20 06:40: M. tuberculosis Complex DNA (PCR) [Pending] 05/28/20 07:45: Sodium Level 138, Potassium Level 4.2, Chloride Level 98, Carbon Dioxide Level 33H, Anion Gap 8, Blood Urea Nitrogen 38H, Creatinine 6.7H, Estimat Glomerular Filtration Rate 8.2, Glucose Level 161H, Calcium Level 9.3, Total Bilirubin 0.6, Aspartate Amino Transf (AST/SGOT) 18, Alanine Aminotransferase (ALT/SGPT) 15, Alkaline Phosphatase 80, Total Protein 7.6, Albumin 2.9L, Globulin 4.7, Albumin/Globulin Ratio 0.6L Height (Feet): 5 Height (Inches): 2.00 Weight (Pounds): 132 General Appearance: WD/WN EENT: PERRL/EOMI Neck: non-tender Cardiovascular: normal rate Respiratory/Chest: lungs clear Abdomen: non tender Pelvis: no masses Extremities: normal range of motion Neurologic: runner on II-XII grossly normal Assessment/Plan Status: stable Assessment/Plan: 74 y/o male admitted to the Hospital with; # Volume overload # ESRD on HD Mon Renal consult appreciated. Dialysis being coordinated. Last session 05/25, DUE TODAY # Accelerated Hypertension Nephrology started Nifedipine XL 60 mg XL daily ( at home Amlodipine was being used per report ) Minoxidil 2.5 mg q 8 hrs Hydralazine PRN and scheduled 100 mg q 8 hrs Monitor BP which is in the 130-140 now. # Reported history of tuberculosis Department of public health guidelines being followed. TB therapy with Ethambutol, PZA, LVQ, RIfabutin, Pyridoxine was started 05/20 when doses where confirmed due to ESRD and HD regimen AFB sputum x 3 ordered and 3 samples collected are NEGATIVE Isolation per department for public health, TB controller. ID consultation with Dr. Garsia appreciated. PENDING UPDATE FROM DEPT OF PUBLIC HEALTH REGARDING CLEARANCE FOR DISCHARGE. DISCUSSED WITH COMPANY DOCTOR JUAN. # Isolated episode of atrial fibrillation Converted to NSR Dr. Roque consulting and anticoagulation NOT INDICATED at this time. # Hyperlipidemia statin # Physical deconditioning Monitor activity PT evaluation for baseline and consideration for short term rehab if indicated. Case discussed with the patient and he is open to rehabilitation. manager javae commerce manager requested. He has been accepted at [facility] per family request. PENDING CLEARANCE BY TB CONTROL, [facility]. DVT ppx with heparin GI ppx with PPI FULL CODE Rehan Johnson MD May 28, 2020 15:22
[2020-05-28 16:00] VITALS: BP 129/55
[2020-05-28] MEDS: Nitroglycerin Patch 0.4mg TDERMAL SCH (17:51)
[2020-05-28] MEDS: Pyridoxine 50mg tab ORAL SCH (17:51)
[2020-05-28] MEDS: Rifabutin 150mg cap ORAL SCH (18:03)
[2020-05-28] MEDS: Levofloxacin 750mg tab ORAL SCH (18:04)
[2020-05-28 20:00] VITALS: BP 133/62
[2020-05-28] MEDS: Atorvastatin 20mg tab ORAL SCH (21:02)
[2020-05-29] VITALS: BP 145/55
[2020-05-29 04:00] VITALS: BP 126/60
[2020-05-29] MEDS: Minoxidil 2.5mg tab ORAL SCH ×3 (05:15→21:43)
[2020-05-29 05:59] LABS: BASOPHILS % (AUTO) 0.9 % (0.0-2.0); EOSINOPHILS % (AUTO) 3.8 % (0.0-3.0); HEMATOCRIT 35.8 % (42.0-52.0); HEMOGLOBIN 11.6 G/DL (14.2-18.0); LYMPHOCYTES % (AUTO) 8.7 % (20.0-45.0); MEAN CORPUSCULAR VOLUME 95 FL (80-99); MONOCYTES % (AUTO) 8.9 % (1.0-10.0); NEUTROPHILS % (AUTO) 77.7 % (45.0-75.0); PLATELET COUNT 156 K/UL (150-450); RED BLOOD COUNT 3.79 M/UL (4.70-6.10); RED CELL DISTRIBUTION WIDTH 15.4 % (11.6-14.8); WHITE BLOOD COUNT 6.5 K/UL (4.8-10.8)
[2020-05-29 06:46] LABS: CREATININE 8.4 MG/DL (0.55-1.30); POTASSIUM 4.1 MMOL/L (3.5-5.1)
[2020-05-29 08:00] VITALS: BP 151/77
[2020-05-29] MEDS: Terazosin 1mg cap ORAL SCH ×2 (08:03→21:42)
[2020-05-29] MEDS: Aspirin Baby 81mg ORAL SCH (08:07)
[2020-05-29] MEDS: Docusate 100mg cap ORAL SCH ×3 (08:07→17:23)
[2020-05-29] MEDS: Heparin 5000 units/ml inj SUBQ SCH ×2 (08:13→21:47)
--- NOTE | 2020-05-29 09:17 | Nephrology Progress Note ---
Assessment/Plan Problem List: (1) Hypertensive emergency (2) ESRD (end stage renal disease) on dialysis (3) Fluid overload (4) Anemia in chronic kidney disease (CKD) (5) Hypertensive kidney disease (6) Tuberculosis Assessment: by history Assessment End-stage renal disease on hemodialysis via left upper arm fistula Monday Volume overload, on chest x-ray evident Hypertension [id number] Plan May 29: Due for dialysis today. Continue per consultants. Labs and medication list reviewed. May 28: Dialyzed yesterday. Today's labs pending. Next dialysis tomorrow. Continue per consultants. On anti-TB medication. May 27: Due for dialysis today. Phos binders dosage increased. Continue per consultants. May 26: Labs reviewed. Blood pressure medication adjusted. Due for dialysis tomorrow. On anti-TB medication. May 25: Dialysed 05/24- Labs reviewed. BP meds adjusted . BP stable. Continue per consultants May 24: Despite of dialysis yesterday, 2 days serum potassium is 6. Will discontinue lisinopril. Kayexalate p.o. ordered. Attempt to dialyze again today. Blood pressure medication adjusted. Continue the rest. Patient on anti-TB medications. May 23: Dialyzed May 21. Due for dialysis today. Continue to monitor renal parameters. May 22: Dialyzed yesterday. Stable from renal standpoint of view. Chest x- ray noted. Hemodialysis and ultrafiltration tomorrow. May 21: Due for hemodialysis today. Continue to adjust blood pressure medication. Labs reviewed. Chest x-ray pending. May 20: Hemodialysis tomorrow. Blood pressure medication adjusted. Labs reviewed. Discussed with . Check chest x-ray tomorrow. May 19: Hemodialysis and ultrafiltration today. Adjust blood pressure medication. Start low-dose aspirin and nitrate. Monitor renal parameters. 2D echocardiogram indicative of ejection fraction of 60% and most likely diastolic dysfunction Subjective ROS Limited/Unobtainable: No Constitutional: Reports: malaise Objective Objective Last 24 Hour Vital Signs Date Time Temp Pulse Resp B/P (MAP) Pulse Ox O2 Delivery O2 Flow Rate FiO2 05/29/20 08:00 97.8 83 20 151/77 (101) 97 05/29/20 05:15 126/60 05/29/20 04:00 97.3 79 18 126/60 (82) 98 05/29/20 00:00 97.9 71 18 145/55 (85) 98 05/28/20 21:00 Room Air 05/28/20 20:00 97.0 88 17 133/62 (85) 98 05/28/20 17:51 129/55 05/28/20 16:00 97.7 83 18 129/55 (79) 98 05/28/20 13:40 91/43 05/28/20 12:00 97.9 78 18 91/43 (59) 97 Intake and Output 05/28/20 05/29/20 19:00 07:00 Intake Total 300 ml 350 ml Balance 300 ml 350 ml Intake Oral 300 ml 350 ml # Voids 2 2 Laboratory Tests 05/29/20 05:08: White Blood Count 6.5, Red Blood Count 3.79L, Hemoglobin 11.6L, Hematocrit 35.8L , Mean Corpuscular Volume 95, Mean Corpuscular Hemoglobin 30.6, Mean Corpuscular Hemoglobin Concent 32.4, Red Cell Distribution Width 15.4H, Platelet Count 156, Mean Platelet Volume 7.7, Neutrophils (%) (Auto) 77.7H, Lymphocytes (%) (Auto) 8.7L, Monocytes (%) (Auto) 8.9, Eosinophils (%) (Auto) 3.8H, Basophils (%) (Auto) 0.9, Sodium Level 137, Potassium Level 4.1, Chloride Level 98, Carbon Dioxide Level 32, Anion Gap 7, Blood Urea Nitrogen 53H, Creatinine 8.4H, Estimat Glomerular Filtration Rate 6.3, Glucose Level 137H, Calcium Level 9.0, Phosphorus Level 5.1H Height (Feet): 5 Height (Inches): 2.00 Weight (Pounds): 132 Objective No change Taye Costa MD May 29, 2020 09:17
[2020-05-29 11:56] VITALS: BP 156/72
--- NOTE | 2020-05-29 12:46 | Infectious Diseases Prog Note ---
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 Mild pulmonary venous congestion Afebrile No leukocytosis HLD HTN ESRD on HD TThSat Plan: -Continue TB regimen: Rifabutin, PZA, Ethambuthol, Levaquin -trend LFTs -f/u cx -Monitor CBC/C MP, temperatures -airborne isolation and AFB sp sm/cx x3 per [facility] recs -discharge planning per [facility] Thank you for consulting [facility]. Will continue to follow along with you. Discussed with RN and Dr Johnson. Subjective Allergies: Coded Allergies: MORPHINE (Verified Allergy, Unknown, 05/18/20) afebrile Objective Last 24 Hour Vital Signs Date Time Temp Pulse Resp B/P (MAP) Pulse Ox O2 Delivery O2 Flow Rate FiO2 05/29/20 11:56 97.7 78 20 156/72 (100) 95 05/29/20 09:00 Room Air 05/29/20 08:00 97.8 83 20 151/77 (101) 97 05/29/20 05:15 126/60 05/29/20 04:00 97.3 79 18 126/60 (82) 98 05/29/20 00:00 97.9 71 18 145/55 (85) 98 05/28/20 21:00 Room Air 05/28/20 20:00 97.0 88 17 133/62 (85) 98 05/28/20 17:51 129/55 05/28/20 16:00 97.7 83 18 129/55 (79) 98 05/28/20 13:40 91/43 Height (Feet): 5 Height (Inches): 2.00 Weight (Pounds): 132 General Appearance: WD/WN Lines, tubes and drains: peripheral HEENT: normocephalic, atraumatic Neck: non-tender, normal alignment Respiratory/Chest: lungs clear Cardiovascular/Chest: normal rate Abdomen: non tender Extremities: normal range of motion Skin Exam: normal pigmentation Neurologic: adding machine servicer II-XII grossly normal Laboratory Tests Test 05/29/20 05:08 White Blood Count 6.5 K/UL (4.8-10.8) Red Blood Count 3.79 M/UL (4.70-6.10) L Hemoglobin 11.6 G/DL (14.2-18.0) L Hematocrit 35.8 % (42.0-52.0) L Mean Corpuscular Volume 95 FL (80-99) Mean Corpuscular Hemoglobin 30.6 PG (27.0-31.0) Mean Corpuscular Hemoglobin Concent 32.4 G/DL (32.0-36.0) Red Cell Distribution Width 15.4 % (11.6-14.8) H Platelet Count 156 K/UL (150-450) Mean Platelet Volume 7.7 FL (6.5-10.1) Neutrophils (%) (Auto) 77.7 % (45.0-75.0) H Lymphocytes (%) (Auto) 8.7 % (20.0-45.0) L Monocytes (%) (Auto) 8.9 % (1.0-10.0) Eosinophils (%) (Auto) 3.8 % (0.0-3.0) H Basophils (%) (Auto) 0.9 % (0.0-2.0) Sodium Level 137 MMOL/L (136-145) Potassium Level 4.1 MMOL/L (3.5-5.1) Chloride Level 98 MMOL/L (98-107) Carbon Dioxide Level 32 MMOL/L (21-32) Anion Gap 7 mmol/L (5-15) Blood Urea Nitrogen 53 mg/dL (7-18) H Creatinine 8.4 MG/DL (0.55-1.30) H Estimat Glomerular Filtration Rate 6.3 mL/min (>60) Glucose Level 137 MG/DL (74-106) H Calcium Level 9.0 MG/DL (8.5-10.1) Phosphorus Level 5.1 MG/DL (2.5-4.9) H Current Medications Medications (Trade) Dose Ordered Sig/Love Route PRN Reason Start Time Stop Time Status Last Admin Dose Admin Acetaminophen (Tylenol) 650 mg Q4H PRN ORAL Mild Pain (Pain Scale 1-3) 05/18/20 15:15 06/17/20 15:14 05/28/20 21:03 Aspirin (ASA) 81 mg DAILY ORAL 05/19/20 15:15 07/03/20 15:14 05/29/20 08:07 Atorvastatin Calcium (Lipitor) 20 mg QHS ORAL 05/18/20 21:00 08/16/20 20:59 05/28/20 21:02 Dextrose (Dextrose 50%) 25 ml Q30M PRN IV Hypoglycemia 05/18/20 15:15 08/16/20 15:14 Dextrose (Dextrose 50%) 50 ml Q30M PRN IV Hypoglycemia 05/18/20 15:15 08/16/20 15:14 Docusate Sodium (Colace) 100 mg TID ORAL 05/20/20 18:00 06/17/20 17:59 05/29/20 08:07 Ethambutol HCl (Myambutol) 1,000 mg TuThSa@1800 ORAL 05/21/20 18:00 06/20/20 17:59 05/28/20 18:00 Heparin Sodium (Porcine) (Heparin 5000 units/ml) 5,000 units EVERY 12 HOURS SUBQ 05/18/20 21:00 07/02/20 20:59 05/29/20 08:13 Levofloxacin (Levaquin) 750 mg TuThSa@1800 ORAL 05/21/20 18:00 06/24/20 17:59 05/28/20 18:04 Minoxidil (Loniten) 2.5 mg Q8HR ORAL 05/25/20 22:00 08/22/20 13:59 05/28/20 05:30 Nifedipine (Procardia XL) 60 mg DAILY ORAL 05/27/20 09:00 06/23/20 08:59 05/28/20 08:54 Nitroglycerin (Ntg) 0.4 mg Q5M PRN SL Prn Chest Pain 05/18/20 15:15 06/17/20 15:14 Nitroglycerin (Ntg) 1 patch Q24H TDERMAL 05/19/20 16:00 06/18/20 15:59 05/28/20 17:51 Ondansetron HCl (Zofran) 4 mg Q6H PRN IVP Nausea & Vomiting 05/18/20 15:15 06/17/20 15:14 05/25/20 05:24 Pantoprazole (Protonix) 40 mg BID ORAL 05/19/20 18:00 06/18/20 08:59 05/29/20 08:07 Pyrazinamide (Pza) 1,500 mg TuThSa@1800 ORAL 05/21/20 18:00 06/20/20 17:59 05/28/20 18:03 Pyridoxine HCl (Vitamin B6) 50 mg DAILY@1800 ORAL 05/21/20 18:00 06/20/20 17:59 05/28/20 17:51 Rifabutin (Mycobutin) 300 mg DAILY@1800 ORAL 05/21/20 18:00 06/20/20 17:59 05/28/20 18:03 Sevelamer Carbonate (Renvela) 2,400 mg THREE TIMES A DAY ORAL 05/27/20 13:00 08/16/20 17:59 05/29/20 08:07 Temazepam (Restoril) 15 mg HSPRN PRN ORAL Insomnia 05/27/20 14:55 06/03/20 14:54 Terazosin HCl (Hytrin) 2 mg Q12HR ORAL 05/24/20 09:00 06/17/20 17:59 05/28/20 21:02 Nanda Garsia M.D. May 29, 2020 12:46
--- NOTE | 2020-05-29 12:47 | General Progress Note ---
Subjective Date patient seen: May 29, 2020 Time patient seen: 13:00 ROS Limited/Unobtainable: Yes Allergies: Coded Allergies: MORPHINE (Verified Allergy, Unknown, 05/18/20) All Systems: reviewed and negative except above Subjective He feels well. No acute complains. Good PO intake. Objective Last 24 Hour Vital Signs Date Time Temp Pulse Resp B/P (MAP) Pulse Ox O2 Delivery O2 Flow Rate FiO2 05/29/20 11:56 97.7 78 20 156/72 (100) 95 05/29/20 09:00 Room Air 05/29/20 08:00 97.8 83 20 151/77 (101) 97 05/29/20 05:15 126/60 05/29/20 04:00 97.3 79 18 126/60 (82) 98 05/29/20 00:00 97.9 71 18 145/55 (85) 98 05/28/20 21:00 Room Air 05/28/20 20:00 97.0 88 17 133/62 (85) 98 05/28/20 17:51 129/55 05/28/20 16:00 97.7 83 18 129/55 (79) 98 05/28/20 13:40 91/43 Intake and Output 05/28/20 05/29/20 19:00 07:00 Intake Total 300 ml 350 ml Balance 300 ml 350 ml Intake Oral 300 ml 350 ml # Voids 2 2 Laboratory Tests 05/29/20 05:08: White Blood Count 6.5, Red Blood Count 3.79L, Hemoglobin 11.6L, Hematocrit 35.8L , Mean Corpuscular Volume 95, Mean Corpuscular Hemoglobin 30.6, Mean Corpuscular Hemoglobin Concent 32.4, Red Cell Distribution Width 15.4H, Platelet Count 156, Mean Platelet Volume 7.7, Neutrophils (%) (Auto) 77.7H, Lymphocytes (%) (Auto) 8.7L, Monocytes (%) (Auto) 8.9, Eosinophils (%) (Auto) 3.8H, Basophils (%) (Auto) 0.9, Sodium Level 137, Potassium Level 4.1, Chloride Level 98, Carbon Dioxide Level 32, Anion Gap 7, Blood Urea Nitrogen 53H, Creatinine 8.4H, Estimat Glomerular Filtration Rate 6.3, Glucose Level 137H, Calcium Level 9.0, Phosphorus Level 5.1H Height (Feet): 5 Height (Inches): 2.00 Weight (Pounds): 132 General Appearance: WD/WN EENT: PERRL/EOMI Neck: non-tender Cardiovascular: normal rate Respiratory/Chest: lungs clear Abdomen: non tender Edema: trace edema Neurologic: rn resource nurse II-XII grossly normal Assessment/Plan Status: stable Assessment/Plan: 74 y/o male admitted to the Hospital with; # Volume overload # ESRD on HD Mon Renal consult appreciated. Dialysis being coordinated. # Accelerated Hypertension Nephrology started Nifedipine XL 60 mg XL daily ( at home Amlodipine was being used per report ) Minoxidil 2.5 mg q 8 hrs Hydralazine PRN and scheduled 100 mg q 8 hrs Monitor BP which is in the 130-140 now. # Reported history of tuberculosis Department of public health guidelines being followed. TB therapy with Ethambutol, PZA, LVQ, RIfabutin, Pyridoxine was started 05/20 when doses where confirmed due to ESRD and HD regimen AFB sputum x 3 ordered and 3 samples collected are NEGATIVE Isolation per department for public health, TB controller. ID consultation with Dr. Garsia appreciated. PENDING UPDATE FROM DEPT OF PUBLIC HEALTH REGARDING CLEARANCE FOR DISCHARGE. DISCUSSED WITH AGRICULTURAL ECONOMICS PROFESSOR JUAN maguire. # Isolated episode of atrial fibrillation Converted to NSR Dr. Roque consulting and anticoagulation NOT INDICATED at this time. # Hyperlipidemia statin # Physical deconditioning Monitor activity PT evaluation for baseline and consideration for short term rehab if indicated. Case discussed with the patient and he is open to rehabilitation. brand strategy managerfeed mill manager requested. He has been accepted at [facility] per family request. PENDING CLEARANCE BY TB CONTROL, [facility] DVT ppx with heparin GI ppx with PPI FULL CODE Rehan Johnson MD May 29, 2020 12:47
--- NOTE | 2020-05-29 13:26 | Cardiac Electrophysiology PN ---
Assessment/Plan Assessment/Plan 1. Episode of atrial fibrillation, converted to sinus rhythm. Heart rate is controlled. Continue aspirin at this time. If I see the patient has more episode of atrial fibrillation, we will consider anticoagulation. 2. Accelerated hypertension. On Procardia XL 60 mg daily, Hytrin 2 bid and M inoxidil 2.5 tid and HD 3. Troponin leak, likely due to renal failure. 0.32, 0.16. No CP. EF of 60- 65%. 4. Shortness of breath and cough. In TB isolation on Meds 5. ESRD on HD per Dr Costa 6. Hyperlipidemia, on Lipitor. 7. Hyperkalemia. KAR RN Subjective Subjective No CP. In TB isolation. Had sputum yesterday for AFB. HD pending Objective Last 24 Hour Vital Signs Date Time Temp Pulse Resp B/P (MAP) Pulse Ox O2 Delivery O2 Flow Rate FiO2 05/29/20 11:56 97.7 78 20 156/72 (100) 95 05/29/20 09:00 Room Air 05/29/20 08:00 97.8 83 20 151/77 (101) 97 05/29/20 05:15 126/60 05/29/20 04:00 97.3 79 18 126/60 (82) 98 05/29/20 00:00 97.9 71 18 145/55 (85) 98 05/28/20 21:00 Room Air 05/28/20 20:00 97.0 88 17 133/62 (85) 98 05/28/20 17:51 129/55 05/28/20 16:00 97.7 83 18 129/55 (79) 98 05/28/20 13:40 91/43 Intake and Output 05/28/20 05/29/20 19:00 07:00 Intake Total 300 ml 350 ml Balance 300 ml 350 ml Intake Oral 300 ml 350 ml # Voids 2 2 Laboratory Tests Test 05/29/20 05:08 White Blood Count 6.5 K/UL (4.8-10.8) Red Blood Count 3.79 M/UL (4.70-6.10) L Hemoglobin 11.6 G/DL (14.2-18.0) L Hematocrit 35.8 % (42.0-52.0) L Mean Corpuscular Volume 95 FL (80-99) Mean Corpuscular Hemoglobin 30.6 PG (27.0-31.0) Mean Corpuscular Hemoglobin Concent 32.4 G/DL (32.0-36.0) Red Cell Distribution Width 15.4 % (11.6-14.8) H Platelet Count 156 K/UL (150-450) Mean Platelet Volume 7.7 FL (6.5-10.1) Neutrophils (%) (Auto) 77.7 % (45.0-75.0) H Lymphocytes (%) (Auto) 8.7 % (20.0-45.0) L Monocytes (%) (Auto) 8.9 % (1.0-10.0) Eosinophils (%) (Auto) 3.8 % (0.0-3.0) H Basophils (%) (Auto) 0.9 % (0.0-2.0) Sodium Level 137 MMOL/L (136-145) Potassium Level 4.1 MMOL/L (3.5-5.1) Chloride Level 98 MMOL/L (98-107) Carbon Dioxide Level 32 MMOL/L (21-32) Anion Gap 7 mmol/L (5-15) Blood Urea Nitrogen 53 mg/dL (7-18) H Creatinine 8.4 MG/DL (0.55-1.30) H Estimat Glomerular Filtration Rate 6.3 mL/min (>60) Glucose Level 137 MG/DL (74-106) H Calcium Level 9.0 MG/DL (8.5-10.1) Phosphorus Level 5.1 MG/DL (2.5-4.9) H Objective HEAD AND NECK: No JVD. LUNGS: Decreased breath sounds. CARDIOVASCULAR: Regular S1 and S2 with no gallop. ABDOMEN: Soft. EXTREMITIES: No pitting edema. Danny Roque MD May 29, 2020 13:26
[2020-05-29 16:00] VITALS: BP 127/66
[2020-05-29] MEDS: Rifabutin 150mg cap ORAL SCH (17:22)
[2020-05-29] MEDS: Pyridoxine 50mg tab ORAL SCH (17:22)
[2020-05-29] MEDS: Nitroglycerin Patch 0.4mg TDERMAL SCH (17:23)
[2020-05-29 20:00] VITALS: BP 109/73
[2020-05-29] MEDS: Atorvastatin 20mg tab ORAL SCH (21:43)
[2020-05-30] VITALS: BP 137/60
[2020-05-30 04:00] VITALS: BP 137/75
[2020-05-30] MEDS: Minoxidil 2.5mg tab ORAL SCH ×4 (05:25→22:48)
[2020-05-30 08:00] VITALS: BP 151/59
[2020-05-30] MEDS: Aspirin Baby 81mg ORAL SCH (08:21)
[2020-05-30] MEDS: Docusate 100mg cap ORAL SCH ×3 (08:21→17:56)
[2020-05-30] MEDS: Terazosin 1mg cap ORAL SCH ×2 (08:22→21:01)
[2020-05-30 08:36] LABS: BASOPHILS % (AUTO) 0.7 % (0.0-2.0); EOSINOPHILS % (AUTO) 4.1 % (0.0-3.0); HEMATOCRIT 39.3 % (42.0-52.0); HEMOGLOBIN 12.4 G/DL (14.2-18.0); LYMPHOCYTES % (AUTO) 8.5 % (20.0-45.0); MEAN CORPUSCULAR VOLUME 96 FL (80-99); MONOCYTES % (AUTO) 8.2 % (1.0-10.0); NEUTROPHILS % (AUTO) 78.6 % (45.0-75.0); PLATELET COUNT 184 K/UL (150-450); RED BLOOD COUNT 4.08 M/UL (4.70-6.10); RED CELL DISTRIBUTION WIDTH 15.7 % (11.6-14.8); WHITE BLOOD COUNT 6.5 K/UL (4.8-10.8)
[2020-05-30 08:54] LABS: CALCIUM 9.2 MG/DL (8.5-10.1); CREATININE 6.2 MG/DL (0.55-1.30); PHOSPHORUS 3.7 MG/DL (2.5-4.9)
[2020-05-30] MEDS: Heparin 5000 units/ml inj SUBQ SCH ×2 (09:50→21:09)
--- NOTE | 2020-05-30 10:42 | Infectious Diseases Prog Note ---
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 Mild pulmonary venous congestion Afebrile No leukocytosis HLD HTN ESRD on HD TThSat Plan: -Continue TB regimen: Rifabutin, PZA, Ethambuthol, Levaquin -trend LFTs -f/u cx -Monitor CBC/C MP, temperatures -airborne isolation and AFB sp sm/cx x3 per DPH recs -discharge planning per DPH Thank you for consulting [facility]. Will continue to follow along with you. Subjective Allergies: Coded Allergies: MORPHINE (Verified Allergy, Unknown, 05/18/20) afebrile no acute event Objective Last 24 Hour Vital Signs Date Time Temp Pulse Resp B/P (MAP) Pulse Ox O2 Delivery O2 Flow Rate FiO2 05/30/20 08:29 76 151/59 05/30/20 05:25 125/72 05/30/20 04:00 97.9 85 20 137/75 (95) 96 05/30/20 00:00 97.7 88 20 137/60 (85) 96 05/29/20 21:43 134/71 05/29/20 21:00 Room Air 05/29/20 20:00 97.5 101 20 109/73 (85) 96 05/29/20 17:23 127/66 05/29/20 16:00 97.7 85 18 127/66 (86) 96 05/29/20 13:55 156/72 05/29/20 11:56 97.7 78 20 156/72 (100) 95 Height (Feet): 5 Height (Inches): 2.00 Weight (Pounds): 132 HEENT: anicteric Respiratory/Chest: no respiratory distress Cardiovascular: regular rhythm Abdomen: no organomegaly Laboratory Tests Test 05/30/20 08:04 White Blood Count 6.5 K/UL (4.8-10.8) Red Blood Count 4.08 M/UL (4.70-6.10) L Hemoglobin 12.4 G/DL (14.2-18.0) L Hematocrit 39.3 % (42.0-52.0) L Mean Corpuscular Volume 96 FL (80-99) Mean Corpuscular Hemoglobin 30.5 PG (27.0-31.0) Mean Corpuscular Hemoglobin Concent 31.6 G/DL (32.0-36.0) L Red Cell Distribution Width 15.7 % (11.6-14.8) H Platelet Count 184 K/UL (150-450) Mean Platelet Volume 8.3 FL (6.5-10.1) Neutrophils (%) (Auto) 78.6 % (45.0-75.0) H Lymphocytes (%) (Auto) 8.5 % (20.0-45.0) L Monocytes (%) (Auto) 8.2 % (1.0-10.0) Eosinophils (%) (Auto) 4.1 % (0.0-3.0) H Basophils (%) (Auto) 0.7 % (0.0-2.0) Sodium Level 137 MMOL/L (136-145) Potassium Level 4.0 MMOL/L (3.5-5.1) Chloride Level 97 MMOL/L (98-107) L Carbon Dioxide Level 34 MMOL/L (21-32) H Anion Gap 6 mmol/L (5-15) Blood Urea Nitrogen 31 mg/dL (7-18) H Creatinine 6.2 MG/DL (0.55-1.30) H Estimat Glomerular Filtration Rate 8.9 mL/min (>60) Glucose Level 148 MG/DL (74-106) H Calcium Level 9.2 MG/DL (8.5-10.1) Phosphorus Level 3.7 MG/DL (2.5-4.9) Current Medications Medications (Trade) Dose Ordered Sig/Love Route PRN Reason Start Time Stop Time Status Last Admin Dose Admin Acetaminophen (Tylenol) 650 mg Q4H PRN ORAL Mild Pain (Pain Scale 1-3) 05/18/20 15:15 06/17/20 15:14 05/28/20 21:03 Aspirin (ASA) 81 mg DAILY ORAL 05/19/20 15:15 07/03/20 15:14 05/30/20 08:21 Atorvastatin Calcium (Lipitor) 20 mg QHS ORAL 05/18/20 21:00 08/16/20 20:59 05/29/20 21:43 Dextrose (Dextrose 50%) 25 ml Q30M PRN IV Hypoglycemia 05/18/20 15:15 1/31/21 15:14 Dextrose (Dextrose 50%) 50 ml Q30M PRN IV Hypoglycemia 05/18/20 15:15 08/16/20 15:14 Docusate Sodium (Colace) 100 mg TID ORAL 05/20/20 18:00 06/17/20 17:59 05/30/20 08:21 Ethambutol HCl (Myambutol) 1,000 mg TuThSa@1800 ORAL 05/21/20 18:00 06/20/20 17:59 05/28/20 18:00 Heparin Sodium (Porcine) (Heparin 5000 units/ml) 5,000 units EVERY 12 HOURS SUBQ 05/18/20 21:00 07/02/20 20:59 05/30/20 09:50 Levofloxacin (Levaquin) 750 mg TuThSa@1800 ORAL 05/21/20 18:00 06/24/20 17:59 05/28/20 18:04 Minoxidil (Loniten) 2.5 mg Q8HR ORAL 05/25/20 22:00 08/22/20 13:59 05/30/20 05:25 Nifedipine (Procardia XL) 60 mg DAILY ORAL 05/27/20 09:00 06/23/20 08:59 05/30/20 08:29 Nitroglycerin (Ntg) 0.4 mg Q5M PRN SL Prn Chest Pain 05/18/20 15:15 06/17/20 15:14 Nitroglycerin (Ntg) 1 patch Q24H TDERMAL 05/19/20 16:00 06/18/20 15:59 05/29/20 17:23 Ondansetron HCl (Zofran) 4 mg Q6H PRN IVP Nausea & Vomiting 05/18/20 15:15 06/17/20 15:14 05/25/20 05:24 Pantoprazole (Protonix) 40 mg BID ORAL 05/19/20 18:00 06/18/20 08:59 05/30/20 08:22 Pyrazinamide (Pza) 1,500 mg TuThSa@1800 ORAL 05/21/20 18:00 06/20/20 17:59 05/28/20 18:03 Pyridoxine HCl (Vitamin B6) 50 mg DAILY@1800 ORAL 05/21/20 18:00 06/20/20 17:59 05/29/20 17:22 Rifabutin (Mycobutin) 300 mg DAILY@1800 ORAL 05/21/20 18:00 06/20/20 17:59 05/29/20 17:22 Sevelamer Carbonate (Renvela) 2,400 mg THREE TIMES A DAY ORAL 05/27/20 13:00 08/16/20 17:59 05/30/20 08:23 Temazepam (Restoril) 15 mg HSPRN PRN ORAL Insomnia 05/27/20 14:55 06/03/20 14:54 Terazosin HCl (Hytrin) 2 mg Q12HR ORAL 05/24/20 09:00 06/17/20 17:59 05/30/20 08:22 Tawanda Norwood MD May 30, 2020 10:42
[2020-05-30 12:00] VITALS: BP 139/61
--- NOTE | 2020-05-30 12:27 | General Progress Note ---
Subjective Date patient seen: May 30, 2020 ROS Limited/Unobtainable: No Allergies: Coded Allergies: MORPHINE (Verified Allergy, Unknown, 05/18/20) Subjective He feels well. No acute complains. Good PO intake. Objective Last 24 Hour Vital Signs Date Time Temp Pulse Resp B/P (MAP) Pulse Ox O2 Delivery O2 Flow Rate FiO2 05/30/20 09:00 Room Air 05/30/20 08:29 76 151/59 05/30/20 08:00 97.9 76 18 151/59 (89) 99 05/30/20 05:25 125/72 05/30/20 04:00 97.9 85 20 137/75 (95) 96 05/30/20 00:00 97.7 88 20 137/60 (85) 96 05/29/20 21:43 134/71 05/29/20 21:00 Room Air 05/29/20 20:00 97.5 101 20 109/73 (85) 96 05/29/20 17:23 127/66 05/29/20 16:00 97.7 85 18 127/66 (86) 96 05/29/20 13:55 156/72 Intake and Output 05/29/20 05/30/20 19:00 07:00 Intake Total 840 ml 180 ml Output Total 2000 ml Balance -1160 ml 180 ml Intake Oral 840 ml 180 ml Hemodialysis UF 2000 ml # Voids 1 Laboratory Tests 05/30/20 08:04: White Blood Count 6.5, Red Blood Count 4.08L, Hemoglobin 12.4L, Hematocrit 39.3L , Mean Corpuscular Volume 96, Mean Corpuscular Hemoglobin 30.5, Mean Corpuscular Hemoglobin Concent 31.6L, Red Cell Distribution Width 15.7H, Platelet Count 184, Mean Platelet Volume 8.3, Neutrophils (%) (Auto) 78.6H, Lymphocytes (%) (Auto) 8.5L, Monocytes (%) (Auto) 8.2, Eosinophils (%) (Auto) 4.1H, Basophils (%) (A uto) 0.7, Sodium Level 137, Potassium Level 4.0, Chloride Level 97L, Carbon Dioxide Level 34H, Anion Gap 6, Blood Urea Nitrogen 31H, Creatinine 6.2H, Estimat Glomerular Filtration Rate 8.9, Glucose Level 148H, Calcium Level 9.2, Phosphorus Level 3.7 Height (Feet): 5 Height (Inches): 2.00 Weight (Pounds): 132 Assessment/Plan Status: stable Assessment/Plan: 74 y/o male admitted to the Hospital with; # Volume overload # ESRD on HD Mon - Mon - Renal consult appreciated. Dialysis being coordinated. # Accelerated Hypertension Nephrology started Nifedipine XL 60 mg XL daily ( at home Amlodipine was being used per report ) Minoxidil 2.5 mg q 8 hrs Hydralazine PRN and scheduled 100 mg q 8 hrs Monitor BP which is in the 130-140 now. # Reported history of tuberculosis Department of public health guidelines being followed. TB therapy with Ethambutol, PZA, LVQ, RIfabutin, Pyridoxine was started 05/20 when doses where confirmed due to ESRD and HD regimen AFB sputum x 3 ordered and 3 samples collected are NEGATIVE Isolation per department for public health, TB controller. ID consultation with Dr. Garsia appreciated. PENDING UPDATE FROM DEPT OF PUBLIC HEALTH REGARDING CLEARANCE FOR DISCHARGE. DISCUSSED WITH APPAREL MANUFACTURE INSTRUCTOR JUAN AND REQUESTED AM PRIOR TO BREAKFAST AFB WHICH WAS COLLECTED. # Isolated episode of atrial fibrillation Converted to NSR Dr. Roque consulting and anticoagulation NOT INDICATED at this time. # Hyperlipidemia statin # Physical deconditioning Monitor activity PT evaluation for baseline and consideration for short term rehab if indicated. Case discussed with the patient and he is open to rehabilitation. fleet managerplant manager requested. He has been accepted at [facility] per family request. PENDING CLEARANCE BY TB CONTROL, [facility]. DVT ppx with heparin GI ppx with PPI FULL CODE Rehan Johnson MD May 30, 2020 12:27
--- NOTE | 2020-05-30 12:43 | Nephrology Progress Note ---
Assessment/Plan Problem List: (1) Hypertensive emergency (2) ESRD (end stage renal disease) on dialysis (3) Fluid overload (4) Anemia in chronic kidney disease (CKD) (5) Hypertensive kidney disease (6) Tuberculosis Assessment: by history Assessment End-stage renal disease on hemodialysis via left upper arm fistula Monday Volume overload, on chest x-ray evident Hypertension [id number] Plan May 30: Dialyzed yesterday. Stable. Continue per consultants. Blood pressure stable May 29: Due for dialysis today. Continue per consultants. Labs and medication list reviewed. May 28: Dialyzed yesterday. Today's labs pending. Next dialysis tomorrow. Continue per consultants. On anti-TB medication. May 27: Due for dialysis today. Phos binders dosage increased. Continue per consultants. May 26: Labs reviewed. Blood pressure medication adjusted. Due for dial ysis tomorrow. On anti-TB medication. May 25: Dialysed 05/24- Labs reviewed. BP meds adjusted . BP stable. Continue per consultants May 24: Despite of dialysis yesterday, 2 days serum potassium is 6. Will discontinue lisinopril. Kayexalate p.o. ordered. Attempt to dialyze again today. Blood pressure medication adjusted. Continue the rest. Patient on anti-TB medications. May 23: Dialyzed May 21. Due for dialysis today. Continue to monitor renal parameters. May 22: Dialyzed yesterday. Stable from renal standpoint of view. Chest x- ray noted. Hemodialysis and ultrafiltration tomorrow. May 21: Due for hemodialysis today. Continue to adjust blood pressure medication. Labs reviewed. Chest x-ray pending. May 20: Hemodialysis tomorrow. Blood pressure medication adjusted. Labs reviewed. Discussed with . Check chest x-ray tomorrow. May 19: Hemodialysis and ultrafiltration today. Adjust blood pressure medication. Start low-dose aspirin and nitrate. Monitor renal parameters. 2D echocardiogram indicative of ejection fraction of 60% and most likely diastolic dysfunction Subjective ROS Limited/Unobtainable: No Constitutional: Reports: malaise Objective Objective Last 24 Hour Vital Signs Date Time Temp Pulse Resp B/P (MAP) Pulse Ox O2 Delivery O2 Flow Rate FiO2 05/30/20 09:00 Room Air 05/30/20 08:29 76 151/59 05/30/20 08:00 97.9 76 18 151/59 (89) 99 05/30/20 05:25 125/72 05/30/20 04:00 97.9 85 20 137/75 (95) 96 05/30/20 00:00 97.7 88 20 137/60 (85) 96 05/29/20 21:43 134/71 05/29/20 21:00 Room Air 05/29/20 20:00 97.5 101 20 109/73 (85) 96 05/29/20 17:23 127/66 05/29/20 16:00 97.7 85 18 127/66 (86) 96 05/29/20 13:55 156/72 Intake and Output 05/29/20 05/30/20 19:00 07:00 Intake Total 840 ml 180 ml Output Total 2000 ml Balance -1160 ml 180 ml Intake Oral 840 ml 180 ml Hemodialysis UF 2000 ml # Voids 1 Laboratory Tests 05/30/20 08:04: White Blood Count 6.5, Red Blood Count 4.08L, Hemoglobin 12.4L, Hematocrit 39.3L , Mean Corpuscular Volume 96, Mean Corpuscular Hemoglobin 30.5, Mean Corpuscular Hemoglobin Concent 31.6L, Red Cell Distribution Width 15.7H, Platelet Count 184, Mean Platelet Volume 8.3, Neutrophils (%) (Auto) 78.6H, Lymphocytes (%) (Auto) 8.5L, Monocytes (%) (Auto) 8.2, Eosinophils (%) (Auto) 4.1H, Basophils (%) (Auto) 0.7, Sodium Level 137, Potassium Level 4.0, Chloride Level 97L, Carbon Dioxide Level 34H, Anion Gap 6, Blood Urea Nitrogen 31H, Creatinine 6.2H, Estimat Glomerular Filtration Rate 8.9, Glucose Level 148H, Calcium Level 9.2, Phosphorus Level 3.7 Height (Feet): 5 Height (Inches): 2.00 Weight (Pounds): 132 General Appearance: no apparent distress Objective No change Taye Costa MD May 30, 2020 12:43
--- NOTE | 2020-05-30 13:57 | Cardiac Electrophysiology PN ---
Assessment/Plan Assessment/Plan 1. Episode of atrial fibrillation, converted to sinus rhythm. Heart rate is controlled. Continue aspirin at this time. If I see the patient has more episode of atrial fibrillation, we will consider anticoagulation. 2. Accelerated hypertension. On Procardia XL 60 mg daily, Hytrin 2 bid and M inoxidil 2.5 tid and HD 3. Troponin leak, likely due to renal failure. 0.32, 0.16. No CP. EF of 60- 65%. 4. Shortness of breath and cough. In TB isolation on Meds 5. ESRD on HD per Dr Costa 6. Hyperlipidemia, on Lipitor. 7. Hyperkalemia. KAR RN Subjective Subjective No CP. In TB isolation. Had sputum for AFB.Had HD Awaiting clearance from Dept of Health Objective Last 24 Hour Vital Signs Date Time Temp Pulse Resp B/P (MAP) Pulse Ox O2 Delivery O2 Flow Rate FiO2 05/30/20 12:00 97.9 76 18 139/61 (87) 98 05/30/20 09:00 Room Air 05/30/20 08:29 76 151/59 05/30/20 08:00 97.9 76 18 151/59 (89) 99 05/30/20 05:25 125/72 05/30/20 04:00 97.9 85 20 137/75 (95) 96 05/30/20 00:00 97.7 88 20 137/60 (85) 96 05/29/20 21:43 134/71 05/29/20 21:00 Room Air 05/29/20 20:00 97.5 101 20 109/73 (85) 96 05/29/20 17:23 127/66 05/29/20 16:00 97.7 85 18 127/66 (86) 96 Intake and Output 05/29/20 05/30/20 19:00 07:00 Intake Total 840 ml 180 ml Output Total 2000 ml Balance -1160 ml 180 ml Intake Oral 840 ml 180 ml Hemodialysis UF 2000 ml # Voids 1 Laboratory Tests Test 05/30/20 08:04 White Blood Count 6.5 K/UL (4.8-10.8) Red Blood Count 4.08 M/UL (4.70-6.10) L Hemoglobin 12.4 G/DL (14.2-18.0) L Hematocrit 39.3 % (42.0-52.0) L Mean Corpuscular Volume 96 FL (80-99) Mean Corpuscular Hemoglobin 30.5 PG (27.0-31.0) Mean Corpuscular Hemoglobin Concent 31.6 G/DL (32.0-36.0) L Red Cell Distribution Width 15.7 % (11.6-14.8) H Platelet Count 184 K/UL (150-450) Mean Platelet Volume 8.3 FL (6.5-10.1) Neutrophils (%) (Auto) 78.6 % (45.0-75.0) H Lymphocytes (%) (Auto) 8.5 % (20.0-45.0) L Monocytes (%) (Auto) 8.2 % (1.0-10.0) Eosinophils (%) (Auto) 4.1 % (0.0-3.0) H Basophils (%) (Auto) 0.7 % (0.0-2.0) Sodium Level 137 MMOL/L (136-145) Potassium Level 4.0 MMOL/L (3.5-5.1) Chloride Level 97 MMOL/L (98-107) L Carbon Dioxide Level 34 MMOL/L (21-32) H Anion Gap 6 mmol/L (5-15) Blood Urea Nitrogen 31 mg/dL (7-18) H Creatinine 6.2 MG/DL (0.55-1.30) H Estimat Glomerular Filtration Rate 8.9 mL/min (>60) Glucose Level 148 MG/DL (74-106) H Calcium Level 9.2 MG/DL (8.5-10.1) Phosphorus Level 3.7 MG/DL (2.5-4.9) Objective HEAD AND NECK: No JVD. LUNGS: Decreased breath sounds. CARDIOVASCULAR: Regular S1 and S2 with no gallop. ABDOMEN: Soft. EXTREMITIES: No pitting edema. Danny Roque MD May 30, 2020 13:57
[2020-05-30 16:00] VITALS: BP 130/70
[2020-05-30] MEDS: Pyridoxine 50mg tab ORAL SCH (17:56)
[2020-05-30] MEDS: Nitroglycerin Patch 0.4mg TDERMAL SCH (17:56)
[2020-05-30] MEDS: Rifabutin 150mg cap ORAL SCH (17:58)
[2020-05-30] MEDS: Levofloxacin 750mg tab ORAL SCH (18:01)
[2020-05-30 20:00] VITALS: BP 118/64
[2020-05-30] MEDS: Atorvastatin 20mg tab ORAL SCH (21:01)
[2020-05-31] VITALS: BP 123/54
[2020-05-31 04:00] VITALS: BP 118/60
[2020-05-31] MEDS: Minoxidil 2.5mg tab ORAL SCH ×3 (06:00→20:47)
[2020-05-31 06:42] LABS: BASOPHILS % (AUTO) 0.6 % (0.0-2.0); EOSINOPHILS % (AUTO) 3.1 % (0.0-3.0); HEMATOCRIT 34.2 % (42.0-52.0); LYMPHOCYTES % (AUTO) 7.5 % (20.0-45.0); MEAN CORPUSCULAR VOLUME 95 FL (80-99); MONOCYTES % (AUTO) 8.1 % (1.0-10.0); NEUTROPHILS % (AUTO) 80.7 % (45.0-75.0); PLATELET COUNT 171 K/UL (150-450); RED BLOOD COUNT 3.62 M/UL (4.70-6.10); RED CELL DISTRIBUTION WIDTH 15.9 % (11.6-14.8); WHITE BLOOD COUNT 6.7 K/UL (4.8-10.8)
[2020-05-31 07:30] LABS: ALBUMIN 2.6 G/DL (3.4-5.0); ALBUMIN/GLOBULIN RATIO 0.6 (1.0-2.7); BILIRUBIN,TOTAL 0.5 MG/DL (0.2-1.0); CREATININE 8.1 MG/DL (0.55-1.30); PHOSPHORUS 3.5 MG/DL (2.5-4.9); POTASSIUM 5.1 MMOL/L (3.5-5.1)
[2020-05-31 08:00] VITALS: BP 149/60
[2020-05-31] MEDS: Docusate 100mg cap ORAL SCH ×3 (09:19→18:09)
[2020-05-31] MEDS: Aspirin Baby 81mg ORAL SCH (09:19)
[2020-05-31] MEDS: Heparin 5000 units/ml inj SUBQ SCH ×2 (09:24→20:51)
[2020-05-31] MEDS: Terazosin 1mg cap ORAL SCH ×2 (09:25→20:47)
--- NOTE | 2020-05-31 11:00 | General Progress Note ---
Subjective Date patient seen: May 31, 2020 ROS Limited/Unobtainable: Yes Allergies: Coded Allergies: MORPHINE (Verified Allergy, Unknown, 05/18/20) All Systems: reviewed and negative except above Subjective He feels well. No acute complains. Good PO intake. Objective Last 24 Hour Vital Signs Date Time Temp Pulse Resp B/P (MAP) Pulse Ox O2 Delivery O2 Flow Rate FiO2 05/31/20 09:29 83 160/70 05/31/20 08:00 97.7 81 18 149/60 (89) 97 05/31/20 06:00 121/63 05/31/20 04:00 98.4 85 18 118/60 (79) 97 05/31/20 00:00 98.1 80 18 123/54 (77) 97 05/30/20 22:00 124/69 05/30/20 21:32 97.9 05/30/20 21:00 Room Air 05/30/20 20:00 97.9 89 18 118/64 (82) 98 05/30/20 17:56 115/56 05/30/20 16:00 98.3 79 17 130/70 (90) 98 05/30/20 14:16 149/69 05/30/20 12:00 97.9 76 18 139/61 (87) 98 Intake and Output 05/30/20 05/31/20 19:00 07:00 Intake Total 600 ml 480 ml Balance 600 ml 480 ml Intake Oral 480 ml Other 600 ml Laboratory Tests 05/31/20 06:00: White Blood Count 6.7, Red Blood Count 3.62L, Hemoglobin 11.0L, Hematocrit 34.2L , Mean Corpuscular Volume 95, Mean Corpuscular Hemoglobin 30.5, Mean Corpuscular Hemoglobin Concent 32.2, Red Cell Distribution Width 15.9H, Platelet Count 171, Mean Platelet Volume 8.5, Neutrophils (%) (Auto) 80.7H, Lymphocytes (%) (Auto) 7.5L, Monocytes (%) (Auto) 8.1, Eosinophils (%) (Auto) 3.1H, Basophils (%) (Auto) 0.6, Sodium Level 135L, Potassium Level 5.1, Chloride Level 97L, Carbon Dioxide Level 33H, Anion Gap 5, Blood Urea Nitrogen 45H, Creatinine 8.1H, Estimat Glomerular Filtration Rate 6.6, Glucose Level 101, Uric Acid 4.5, Calcium Level 9.0, Phosphorus Level 3.5, Magnesium Level 2.3, Total Bilirubin 0.5, Aspartate Amino Transf (AST/SGOT) 17, Alanine Aminotransferase (ALT/SGPT) 14, Alkaline Phosphatase 64, C-Reactive Protein, Quantitative 5.3H, Pro-B-Type Natriuretic Peptide 8252H, Total Protein 6.8, Albumin 2.6L, Globulin 4.2, Albumin/Globulin Ratio 0.6L Height (Feet): 5 Height (Inches): 2.00 Weight (Pounds): 132 General Appearance: WD/WN EENT: PERRL/EOMI Neck: non-tender Cardiovascular: normal rate Respiratory/Chest: lungs clear Abdomen: non tender Neurologic: operating engineer II-XII grossly normal Assessment/Plan Status: stable Assessment/Plan: 74 y/o male admitted to the Hospital with; # Volume overload # ESRD on HD Mon - Mon - Renal consult appreciated. Dialysis being coordinated. # Accelerated Hypertension Nephrology started Nifedipine XL 60 mg XL daily ( at home Amlodipine was being used per report ) Minoxidil 2.5 mg q 8 hrs Hydralazine PRN and scheduled 100 mg q 8 hrs Monitor BP which is in the 130-140 now. # Reported history of tuberculosis Department of public health guidelines being followed. TB therapy with Ethambutol, PZA, LVQ, RIfabutin, Pyridoxine was started 05/20 when doses where confirmed due to ESRD and HD regimen AFB sputum x 3 ordered and 3 samples collected are NEGATIVE Isolation per department for public health, TB controller. ID consultation with Dr. Garsia appreciated. PENDING UPDATE FROM DEPT OF PUBLIC HEALTH REGARDING CLEARANCE FOR DISCHARGE. DISCUSSED WITH [employer] [facility] AND REQUESTED AM PRIOR TO BREAKFAST AFB WHICH WAS COLLECTED. # Isolated episode of atrial fibrillation Converted to NSR Dr. Roque consulting and anticoagulation NOT INDICATED at this time. # Hyperlipidemia statin # Physical deconditioning Monitor activity PT evaluation for baseline and consideration for short term rehab if indicated. Case discussed with the patient and he is open to rehabilitation. executive account managersales program manager requested. He has been accepted at [facility] per family request. PENDING CLEARANCE BY TB CONTROL, DP. DVT ppx with heparin GI ppx with PPI FULL CODE Rehan Johnson MD May 31, 2020 11:00
[2020-05-31 12:00] VITALS: BP 167/74
--- NOTE | 2020-05-31 14:11 | Nephrology Progress Note ---
Assessment/Plan Problem List: (1) Hypertensive emergency (2) ESRD (end stage renal disease) on dialysis (3) Fluid overload (4) Anemia in chronic kidney disease (CKD) (5) Hypertensive kidney disease (6) Tuberculosis Assessment: by history Assessment End-stage renal disease on hemodialysis via left upper arm fistula Monday Volume overload, on chest x-ray evident Hypertension [id number] Plan May 31: Last dialysis May 29. Next dialysis June 01. Medications and lab results reviewed. Continue per current management. Procardia dose increased to 90 mg every morning XL May 30: Dialyzed yesterday. Stable. Continue per consultants. Blood pressure stable May 29: Due for dialysis today. Continue per consultants. Labs and medication list reviewed. May 28: Dialyzed yesterday. Today's labs pending. Next dialysis tomorrow. Continue per consultants. On anti-TB medication. May 27: Due for dialysis today. Phos binders dosage increased. Continue per consultants. May 26: Labs reviewed. Blood pressure medication adjusted. Due for dialysis tomorrow. On anti-TB medication. May 25: Dialysed 05/24- Labs reviewed. BP meds adjusted . BP stable. Continue per consultants May 24: Despite of dialysis yesterday, 2 days serum potassium is 6. Will discontinue lisinopril. Kayexalate p.o. ordered. Attempt to dialyze again today. Blood pressure medication adjusted. Continue the rest. Patient on anti-TB medications. May 23: Dialyzed May 21. Due for dialysis today. Continue to monitor renal parameters. May 22: Dialyzed yesterday. Stable from renal standpoint of view. Chest x- ray noted. Hemodialysis and ultrafiltration tomorrow. May 21: Due for hemodialysis today. Continue to adjust blood pressure medication. Labs reviewed. Chest x-ray pending. May 20: Hemodialysis tomorrow. Blood pressure medication adjusted. Labs reviewed. Discussed with . Check chest x-ray tomorrow. May 19: Hemodialysis and ultrafiltration today. Adjust blood pressure medication. Start low-dose aspirin and nitrate. Monitor renal parameters. 2D echocardiogram indicative of ejection fraction of 60% and most likely diastolic dysfunction Subjective ROS Limited/Unobtainable: No Constitutional: Reports: malaise Objective Objective Last 24 Hour Vital Signs Date Time Temp Pulse Resp B/P (MAP) Pulse Ox O2 Delivery O2 Flow Rate FiO2 11/15/20 13:48 160/70 05/31/20 12:00 97.6 72 17 167/74 (105) 98 05/31/20 09:29 83 160/70 05/31/20 09:00 Room Air 05/31/20 08:00 97.7 81 18 149/60 (89) 97 05/31/20 06:00 121/63 05/31/20 04:00 98.4 85 18 118/60 (79) 97 05/31/20 00:00 98.1 80 18 123/54 (77) 97 05/30/20 22:00 124/69 05/30/20 21:32 97.9 05/30/20 21:00 Room Air 05/30/20 20:00 97.9 89 18 118/64 (82) 98 05/30/20 17:56 115/56 05/30/20 16:00 98.3 79 17 130/70 (90) 98 05/30/20 14:16 149/69 Intake and Output 05/30/20 05/31/20 19:00 07:00 Intake Total 600 ml 480 ml Balance 600 ml 480 ml Intake Oral 480 ml Other 600 ml Current Medications Medications (Trade) Dose Ordered Sig/Love Route PRN Reason Start Time Stop Time Status Last Admin Dose Admin Acetaminophen (Tylenol) 650 mg Q4H PRN ORAL Mild Pain (Pain Scale 1-3) 05/18/20 15:15 06/17/20 15:14 05/30/20 21:02 Aspirin (ASA) 81 mg DAILY ORAL 05/19/20 15:15 07/03/20 15:14 05/31/20 09:19 Atorvastatin Calcium (Lipitor) 20 mg QHS ORAL 05/18/20 21:00 08/16/20 20:59 05/30/20 21:01 Dextrose (Dextrose 50%) 25 ml Q30M PRN IV Hypoglycemia 05/18/20 15:15 08/16/20 15:14 Dextrose (Dextrose 50%) 50 ml Q30M PRN IV Hypoglycemia 05/18/20 15:15 08/16/20 15:14 Docusate Sodium (Colace) 100 mg TID ORAL 05/20/20 18:00 06/17/20 17:59 05/31/20 13:47 Ethambutol HCl (Myambutol) 1,000 mg TuThSa@1800 ORAL 05/21/20 18:00 06/20/20 17:59 05/30/20 17:58 Heparin Sodium (Porcine) (Heparin 5000 units/ml) 5,000 units EVERY 12 HOURS SUBQ 05/18/20 21:00 07/02/20 20:59 05/31/20 09:24 Levofloxacin (Levaquin) 750 mg TuThSa@1800 ORAL 05/21/20 18:00 06/24/20 17:59 05/30/20 18:01 Minoxidil (Loniten) 2.5 mg Q8HR ORAL 05/25/20 22:00 08/22/20 13:59 05/31/20 13:48 Nifedipine (Procardia XL) 60 mg DAILY ORAL 05/27/20 09:00 06/23/20 08:59 05/31/20 09:29 Nitroglycerin (Ntg) 0.4 mg Q5M PRN SL Prn Chest Pain 05/18/20 15:15 06/17/20 15:14 Nitroglycerin (Ntg) 1 patch Q24H TDERMAL 05/19/20 16:00 06/18/20 15:59 05/30/20 17:56 Ondansetron HCl (Zofran) 4 mg Q6H PRN IVP Nausea & Vomiting 05/18/20 15:15 06/17/20 15:14 05/25/20 05:24 Pantoprazole (Protonix) 40 mg BID ORAL 05/19/20 18:00 06/18/20 08:59 05/31/20 09:20 Pyrazinamide (Pza) 1,500 mg TuThSa@1800 ORAL 05/21/20 18:00 06/20/20 17:59 05/30/20 18:07 Pyridoxine HCl (Vitamin B6) 50 mg DAILY@1800 ORAL 05/21/20 18:00 06/20/20 17:59 05/30/20 17:56 Rifabutin (Mycobutin) 300 mg DAILY@1800 ORAL 05/21/20 18:00 06/20/20 17:59 05/30/20 17:58 Sevelamer Carbonate (Renvela) 2,400 mg THREE TIMES A DAY ORAL 05/27/20 13:00 08/16/20 17:59 05/31/20 13:46 Temazepam (Restoril) 15 mg HSPRN PRN ORAL Insomnia 05/27/20 14:55 06/03/20 14:54 Terazosin HCl (Hytrin) 2 mg Q12HR ORAL 05/24/20 09:00 06/17/20 17:59 05/31/20 09:25 Laboratory Tests 05/31/20 06:00: White Blood Count 6.7, Red Blood Count 3.62L, Hemoglobin 11.0L, Hematocrit 34.2L , Mean Corpuscular Volume 95, Mean Corpuscular Hemoglobin 30.5, Mean Corpuscular Hemoglobin Concent 32.2, Red Cell Distribution Width 15.9H, Platelet Count 171, Mean Platelet Volume 8.5, Neutrophils (%) (Auto) 80.7H, Lymphocytes (%) (Auto) 7.5L, Monocytes (%) (Auto) 8.1, Eosinophils (%) (Auto) 3.1H, Basophils (%) (Auto) 0.6, Sodium Level 135L, Potassium Level 5.1, Chloride Level 97L, Carbon Dioxide Level 33H, Anion Gap 5, Blood Urea Nitrogen 45H, Creatinine 8.1H, Estimat Glomerular Filtration Rate 6.6, Glucose Level 101, Uric Acid 4.5, Calcium Level 9.0, Phosphorus Level 3.5, Magnesium Level 2.3, Total Bilirubin 0.5, Aspartate Amino Transf (AST/SGOT) 17, Alanine Aminotransferase (ALT/SGPT) 14, Alkaline Phosphatase 64, C-Reactive Protein, Quantitative 5.3H, Pro-B-Type Natriuretic Peptide 8252H, Total Protein 6.8, Albumin 2.6L, Globulin 4.2, Albumin/Globulin Ratio 0.6L Height (Feet): 5 Height (Inches): 2.00 Weight (Pounds): 132 General Appearance: no apparent distress, lethargic Objective No change Taye Cosat MD May 31, 2020 14:11
[2020-05-31 16:00] VITALS: BP 166/57
[2020-05-31] MEDS: Nitroglycerin Patch 0.4mg TDERMAL SCH (16:44)
--- NOTE | 2020-05-31 17:22 | Cardiac Electrophysiology PN ---
Assessment/Plan Assessment/Plan 1. Episode of atrial fibrillation, converted to sinus rhythm. Heart rate is controlled. Continue aspirin at this time. If I see more episode of atrial fibrillation, we will consider anticoagulation. 2. Hypertension. On Procardia XL 60 mg daily, Hytrin 2 bid and Minoxidil 2.5 tid and HD 3. Troponin leak, likely due to renal failure. 0.32, 0.16. No CP. EF of 60- 65%. 4. Shortness of breath and cough. In TB isolation on Meds 5. ESRD on HD per Dr Costa 6. Hyperlipidemia, on Lipitor. 7. Hyperkalemia. KAR RN Subjective Subjective No CP. In TB isolation. Had sputum for AFB. No CP or SOB. Alert and responsive. Awaiting clearance from Dept of Health Objective Last 24 Hour Vital Signs Date Time Temp Pulse Resp B/P (MAP) Pulse Ox O2 Delivery O2 Flow Rate FiO2 05/31/20 16:44 153/75 05/31/20 13:48 160/70 05/31/20 12:00 97.6 72 17 167/74 (105) 98 05/31/20 09:29 83 160/70 05/31/20 09:00 Room Air 05/31/20 08:00 97.7 81 18 149/60 (89) 97 05/31/20 06:00 121/63 05/31/20 04:00 98.4 85 18 118/60 (79) 97 05/31/20 00:00 98.1 80 18 123/54 (77) 97 05/30/20 22:00 124/69 05/30/20 21:32 97.9 05/30/20 21:00 Room Air 05/30/20 20:00 97.9 89 18 118/64 (82) 98 05/30/20 17:56 115/56 Intake and Output 05/30/20 05/31/20 19:00 07:00 Intake Total 600 ml 480 ml Balance 600 ml 480 ml Intake Oral 480 ml Other 600 ml Laboratory Tests Test 05/31/20 06:00 White Blood Count 6.7 K/UL (4.8-10.8) Red Blood Count 3.62 M/UL (4.70-6.10) L Hemoglobin 11.0 G/DL (14.2-18.0) L Hematocrit 34.2 % (42.0-52.0) L Mean Corpuscular Volume 95 FL (80-99) Mean Corpuscular Hemoglobin 30.5 PG (27.0-31.0) Mean Corpuscular Hemoglobin Concent 32.2 G/DL (32.0-36.0) Red Cell Distribution Width 15.9 % (11.6-14.8) H Platelet Count 171 K/UL (150-450) Mean Platelet Volume 8.5 FL (6.5-10.1) Neutrophils (%) (Auto) 80.7 % (45.0-75.0) H Lymphocytes (%) (Auto) 7.5 % (20.0-45.0) L Monocytes (%) (Auto) 8.1 % (1.0-10.0) Eosinophils (%) (Auto) 3.1 % (0.0-3.0) H Basophils (%) (Auto) 0.6 % (0.0-2.0) Sodium Level 135 MMOL/L (136-145) L Potassium Level 5.1 MMOL/L (3.5-5.1) Chloride Level 97 MMOL/L (98-107) L Carbon Dioxide Level 33 MMOL/L (21-32) H Anion Gap 5 mmol/L (5-15) Blood Urea Nitrogen 45 mg/dL (7-18) H Creatinine 8.1 MG/DL (0.55-1.30) H Estimat Glomerular Filtration Rate 6.6 mL/min (>60) Glucose Level 101 MG/DL (74-106) Uric Acid 4.5 MG/DL (2.6-7.2) Calcium Level 9.0 MG/DL (8.5-10.1) Phosphorus Level 3.5 MG/DL (2.5-4.9) Magnesium Level 2.3 MG/DL (1.8-2.4) Total Bilirubin 0.5 MG/DL (0.2-1.0) Aspartate Amino Transf (AST/SGOT) 17 U/L (15-37) Alanine Aminotransferase (ALT/SGPT) 14 U/L (12-78) Alkaline Phosphatase 64 U/L (46-116) C-Reactive Protein, Quantitative 5.3 mg/dL (0.00-0.90) H Pro-B-Type Natriuretic Peptide 8252 pg/mL (0-125) H Total Protein 6.8 G/DL (6.4-8.2) Albumin 2.6 G/DL (3.4-5.0) L Globulin 4.2 g/dL Albumin/Globulin Ratio 0.6 (1.0-2.7) L Microbiology Date/Time Source Procedure Growth Status 05/30/20 05:50 Sputum AFB Specimen Processing Tissue - Final Resulted 05/30/20 05:50 Sputum Acid Fast Bacilli Smear - Final Resulted 05/30/20 05:50 Sputum Acid Fast Bacilli Culture Pending Resulted Objective HEAD AND NECK: No JVD. LUNGS: Decreased breath sounds. CARDIOVASCULAR: Regular S1 and S2 with no gallop. ABDOMEN: Soft. EXTREMITIES: No pitting edema. Danny Roque MD May 31, 2020 17:22
[2020-05-31] MEDS: Rifabutin 150mg cap ORAL SCH (18:10)
[2020-05-31] MEDS: Pyridoxine 50mg tab ORAL SCH (18:23)
[2020-05-31 20:00] VITALS: BP 106/57
[2020-05-31] MEDS: Atorvastatin 20mg tab ORAL SCH (20:50)
[2020-06-01] VITALS: BP 112/58
[2020-06-01 04:00] VITALS: BP 160/64
[2020-06-01] MEDS: Minoxidil 2.5mg tab ORAL SCH ×3 (05:14→21:01)
[2020-06-01 07:51] LABS: BASOPHILS % (AUTO) 0.7 % (0.0-2.0); EOSINOPHILS % (AUTO) 2.7 % (0.0-3.0); HEMOGLOBIN 10.1 G/DL (14.2-18.0); LYMPHOCYTES % (AUTO) 5.7 % (20.0-45.0); MEAN CORPUSCULAR VOLUME 95 FL (80-99); MONOCYTES % (AUTO) 7.4 % (1.0-10.0); NEUTROPHILS % (AUTO) 83.4 % (45.0-75.0); PLATELET COUNT 178 K/UL (150-450); RED BLOOD COUNT 3.36 M/UL (4.70-6.10); RED CELL DISTRIBUTION WIDTH 15.9 % (11.6-14.8); WHITE BLOOD COUNT 7.8 K/UL (4.8-10.8)
[2020-06-01 08:00] VITALS: BP 162/70
[2020-06-01 08:13] LABS: BLOOD UREA NITROGEN 66 mg/dL (7-18); CALCIUM 9.3 MG/DL (8.5-10.1); CARBON DIOXIDE 31 MMOL/L (21-32); CHLORIDE 96 MMOL/L (98-107); PHOSPHORUS 3.3 MG/DL (2.5-4.9); POTASSIUM 5.7 MMOL/L (3.5-5.1); SODIUM 135 MMOL/L (136-145)
--- NOTE | 2020-06-01 08:23 | Infectious Diseases Prog Note ---
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 Mild pulmonary venous congestion -05/30 AFB smear neg Afebrile No leukocytosis HLD HTN ESRD on HD TThSat Plan: Continue TB regimen: Rifabutin, PZA, Ethambuthol, Levaquin -trend LFTs Can d/c VitB6, only needs to be on with INH in TB regimen, but since not on INH no need for Pyridoxine (VitB6) -f/u cx -Monitor CBC/C MP, temperatures -airborne isolation and AFB sp sm/cx x3 per [facility] recs -discharge planning per [facility] D/w RN Thank you for consulting [facility]. Will continue to follow along with you. Subjective Allergies: Coded Allergies: MORPHINE (Verified Allergy, Unknown, 05/18/20) AF No leukocytosis NAD sitting on side of bed Coughing w/ deep breathing No other new complaints Asking about going home Objective Last 24 Hour Vital Signs Date Time Temp Pulse Resp B/P (MAP) Pulse Ox O2 Delivery O2 Flow Rate FiO2 06/01/20 05:14 160/64 06/01/20 04:00 98.0 96 18 160/64 (96) 96 06/01/20 00:00 97.5 98 20 112/58 (76) 96 05/31/20 21:00 Nasal Cannula 2.0 05/31/20 20:47 106/57 05/31/20 20:00 97.8 101 18 106/57 (73) 97 05/31/20 16:44 153/75 05/31/20 16:00 97.7 60 18 166/57 (93) 98 05/31/20 13:48 160/70 05/31/20 12:00 97.6 72 17 167/74 (105) 98 05/31/20 09:29 83 160/70 05/31/20 09:00 Room Air Height (Feet): 5 Height (Inches): 2.00 Weight (Pounds): 132 Gen: NAD in bed HEENT: NCAT, EOMI, PERRL CV: RRR Pulm: CTAB Abd: Soft, NTND Ext: No c/c/e Neuro: Awake Microbiology Date/Time Source Procedure Growth Status 05/30/20 05:50 Sputum AFB Specimen Processing Tissue - Final Resulted 05/30/20 05:50 Sputum Acid Fast Bacilli Smear - Final Resulted 05/30/20 05:50 Sputum Acid Fast Bacilli Culture Pending Resulted Laboratory Tests Test 06/01/20 07:27 White Blood Count 7.8 K/UL (4.8-10.8) Red Blood Count 3.36 M/UL (4.70-6.10) L Hemoglobin 10.1 G/DL (14.2-18.0) L Hematocrit 32.0 % (42.0-52.0) L Mean Corpuscular Volume 95 FL (80-99) Mean Corpuscular Hemoglobin 30.1 PG (27.0-31.0) Mean Corpuscular Hemoglobin Concent 31.7 G/DL (32.0-36.0) L Red Cell Distribution Width 15.9 % (11.6-14.8) H Platelet Count 178 K/UL (150-450) Mean Platelet Volume 7.4 FL (6.5-10.1) Neutrophils (%) (Auto) 83.4 % (45.0-75.0) H Lymphocytes (%) (Auto) 5.7 % (20.0-45.0) L Monocytes (%) (Auto) 7.4 % (1.0-10.0) Eosinophils (%) (Auto) 2.7 % (0.0-3.0) Basophils (%) (Auto) 0.7 % (0.0-2.0) Sodium Level 135 MMOL/L (136-145) L Potassium Level 5.7 MMOL/L (3.5-5.1) H Chloride Level 96 MMOL/L (98-107) L Carbon Dioxide Level 31 MMOL/L (21-32) Blood Urea Nitrogen 66 mg/dL (7-18) H Creatinine 10.0 MG/DL (0.55-1.30) H Estimat Glomerular Filtration Rate 5.1 mL/min (>60) Glucose Level 104 MG/DL (74-106) Calcium Level 9.3 MG/DL (8.5-10.1) Phosphorus Level 3.3 MG/DL (2.5-4.9) Current Medications Medications (Trade) Dose Ordered Sig/Love Route PRN Reason Start Time Stop Time Status Last Admin Dose Admin Acetaminophen (Tylenol) 650 mg Q4H PRN ORAL Mild Pain (Pain Scale 1-3) 05/18/20 15:15 06/17/20 15:14 05/30/20 21:02 Aspirin (ASA) 81 mg DAILY ORAL 05/19/20 15:15 07/03/20 15:14 05/31/20 09:19 Atorvastatin Calcium (Lipitor) 20 mg QHS ORAL 05/18/20 21:00 08/16/20 20:59 05/31/20 20:50 Dextrose (Dextrose 50%) 25 ml Q30M PRN IV Hypoglycemia 05/18/20 15:15 08/16/20 15:14 Dextrose (Dextrose 50%) 50 ml Q30M PRN IV Hypoglycemia 05/18/20 15:15 08/16/20 15:14 Docusate Sodium (Colace) 100 mg TID ORAL 05/20/20 18:00 06/17/20 17:59 05/31/20 18:09 Ethambutol HCl (Myambutol) 1,000 mg TuThSa@1800 ORAL 05/21/20 18:00 06/20/20 17:59 05/30/20 17:58 Heparin Sodium (Porcine) (Heparin 5000 units/ml) 5,000 units EVERY 12 HOURS SUBQ 05/18/20 21:00 07/02/20 20:59 05/31/20 20:51 Levofloxacin (Levaquin) 750 mg TuThSa@1800 ORAL 05/21/20 18:00 06/24/20 17:59 05/30/20 18:01 Minoxidil (Loniten) 2.5 mg Q8HR ORAL 05/25/20 22:00 08/22/20 13:59 06/01/20 05:14 Nifedipine (Procardia XL) 90 mg DAILY ORAL 06/01/20 09:00 06/23/20 08:59 Nitroglycerin (Ntg) 0.4 mg Q5M PRN SL Prn Chest Pain 05/18/20 15:15 06/17/20 15:14 Nitroglycerin (Ntg) 1 patch Q24H TDERMAL 05/19/20 16:00 06/18/20 15:59 05/31/20 16:44 Ondansetron HCl (Zofran) 4 mg Q6H PRN IVP Nausea & Vomiting 05/18/20 15:15 06/17/20 15:14 05/25/20 05:24 Pantoprazole (Protonix) 40 mg BID ORAL 05/19/20 18:00 06/18/20 08:59 05/31/20 18:11 Pyrazinamide (Pza) 1,500 mg TuThSa@1800 ORAL 05/21/20 18:00 06/20/20 17:59 05/30/20 18:07 Pyridoxine HCl (Vitamin B6) 50 mg DAILY@1800 ORAL 05/21/20 18:00 06/20/20 17:59 05/31/20 18:23 Rifabutin (Mycobutin) 300 mg DAILY@1800 ORAL 05/21/20 18:00 06/20/20 17:59 05/31/20 18:10 Sevelamer Carbonate (Renvela) 2,400 mg THREE TIMES A DAY ORAL 05/27/20 13:00 08/16/20 17:59 05/31/20 18:11 Temazepam (Restoril) 15 mg HSPRN PRN ORAL Insomnia 05/27/20 14:55 06/03/20 14:54 Terazosin HCl (Hytrin) 2 mg Q12HR ORAL 05/24/20 09:00 06/17/20 17:59 05/31/20 09:25 Nadine Hays M.D. Jun 01, 2020 08:23
[2020-06-01] MEDS: Heparin 5000 units/ml inj SUBQ SCH ×2 (09:00→20:58)
[2020-06-01] MEDS: Terazosin 1mg cap ORAL SCH ×2 (09:00→20:58)
[2020-06-01] MEDS: Docusate 100mg cap ORAL SCH ×3 (09:05→17:38)
[2020-06-01] MEDS: Aspirin Baby 81mg ORAL SCH (09:05)
--- NOTE | 2020-06-01 10:17 | Nephrology Progress Note ---
Assessment/Plan Problem List: (1) Hypertensive emergency (2) ESRD (end stage renal disease) on dialysis (3) Fluid overload (4) Anemia in chronic kidney disease (CKD) (5) Hypertensive kidney disease (6) Tuberculosis Assessment: by history Assessment End-stage renal disease on hemodialysis via left upper arm fistula Monday Volume overload, on chest x-ray evident Hypertension [id number] Plan June 01: Due for dialysis today. Labs reviewed. Serum potassium 5.7. Potassium will be corrected after dialysis. Blood pressure reasonably controlled. BP medication not to be held before dialysis on dialysis days May 31: Last dialysis May 29. Next dialysis June 01. Medications and lab results reviewed. Continue per current management. Procardia dose increased to 90 mg every morning XL May 30: Dialyzed yesterday. Stable. Continue per consultants. Blood pressure stable May 29: Due for dialysis today. Continue per consultants. Labs and medication list reviewed. May 28: Dialyzed yesterday. Today's labs pending. Next dialysis tomorrow. Continue per consultants. On anti-TB medication. May 27: Due for dialysis today. Phos binders dosage increased. Continue per consultants. May 26: Labs reviewed. Blood pressure medication adjusted. Due for dialysis tomorrow. On anti-TB medication. May 25: Dialysed 05/24- Labs reviewed. BP meds adjusted . BP stable. Continue per consultants May 24: Despite of dialysis yesterday, 2 days serum potassium is 6. Will discontinue lisinopril. Kayexalate p.o. ordered. Attempt to dialyze again today. Blood pressure medication adjusted. Continue the rest. Patient on anti-TB medications. May 23: Dialyzed May 21. Due for dialysis today. Continue to monitor renal parameters. May 22: Dialyzed yesterday. Stable from renal standpoint of view. Chest x- ray noted. Hemodialysis and ultrafiltration tomorrow. May 21: Due for hemodialysis today. Continue to adjust blood pressure medication. Labs reviewed. Chest x-ray pending. May 20: Hemodialysis tomorrow. Blood pressure medication adjusted. Labs reviewed. Discussed with . Check chest x-ray tomorrow. May 19: Hemodialysis and ultrafiltration today. Adjust blood pressure medication. Start low-dose aspirin and nitrate. Monitor renal parameters. 2D echocardiogram indicative of ejection fraction of 60% and most likely diastolic dysfunction Subjective ROS Limited/Unobtainable: No Constitutional: Reports: malaise Objective Objective Last 24 Hour Vital Signs Date Time Temp Pulse Resp B/P (MAP) Pulse Ox O2 Delivery O2 Flow Rate FiO2 06/01/20 09:00 Nasal Cannula 2.0 06/01/20 09:00 77 180/70 06/01/20 08:00 97.6 89 19 162/70 (100) 97 06/01/20 05:14 160/64 06/01/20 04:00 98.0 96 18 160/64 (96) 96 06/01/20 00:00 97.5 98 20 112/58 (76) 96 05/31/20 21:00 Nasal Cannula 2.0 05/31/20 20:47 106/57 05/31/20 20:00 97.8 101 18 106/57 (73) 97 05/31/20 16:44 153/75 05/31/20 16:00 97.7 60 18 166/57 (93) 98 05/31/20 13:48 160/70 05/31/20 12:00 97.6 72 17 167/74 (105) 98 Intake and Output 05/31/20 06/01/20 19:00 07:00 Intake Total 900 ml 240 ml Balance 900 ml 240 ml Intake Oral 240 ml Other 900 ml Current Medications Medications (Trade) Dose Ordered Sig/Love Route PRN Reason Start Time Stop Time Status Last Admin Dose Admin Acetaminophen (Tylenol) 650 mg Q4H PRN ORAL Mild Pain (Pain Scale 1-3) 05/18/20 15:15 06/17/20 15:14 05/30/20 21:02 Aspirin (ASA) 81 mg DAILY ORAL 05/19/20 15:15 07/03/20 15:14 06/01/20 09:05 Atorvastatin Calcium (Lipitor) 20 mg QHS ORAL 05/18/20 21:00 08/16/20 20:59 05/31/20 20:50 Dextrose (Dextrose 50%) 25 ml Q30M PRN IV Hypoglycemia 05/18/20 15:15 08/16/20 15:14 Dextrose (Dextrose 50%) 50 ml Q30M PRN IV Hypoglycemia 05/18/20 15:15 08/16/20 15:14 Docusate Sodium (Colace) 100 mg TID ORAL 05/20/20 18:00 06/17/20 17:59 06/01/20 09:05 Ethambutol HCl (Myambutol) 1,000 mg TuThSa@1800 ORAL 05/21/20 18:00 06/20/20 17:59 05/30/20 17:58 Heparin Sodium (Porcine) (Heparin 5000 units/ml) 5,000 units EVERY 12 HOURS SUBQ 05/18/20 21:00 07/02/20 20:59 05/31/20 20:51 Levofloxacin (Levaquin) 750 mg TuThSa@1800 ORAL 05/21/20 18:00 06/24/20 17:59 05/30/20 18:01 Minoxidil (Loniten) 2.5 mg Q8HR ORAL 05/25/20 22:00 08/22/20 13:59 06/01/20 05:14 Nifedipine (Procardia XL) 90 mg DAILY ORAL 06/01/20 09:00 06/23/20 08:59 Nitroglycerin (Ntg) 0.4 mg Q5M PRN SL Prn Chest Pain 05/18/20 15:15 06/17/20 15:14 Nitroglycerin (Ntg) 1 patch Q24H TDERMAL 05/19/20 16:00 06/18/20 15:59 05/31/20 16:44 Ondansetron HCl (Zofran) 4 mg Q6H PRN IVP Nausea & Vomiting 05/18/20 15:15 06/17/20 15:14 05/25/20 05:24 Pantoprazole (Protonix) 40 mg BID ORAL 05/19/20 18:00 06/18/20 08:59 06/01/20 09:05 Pyrazinamide (Pza) 1,500 mg TuThSa@1800 ORAL 05/21/20 18:00 06/20/20 17:59 05/30/20 18:07 Rifabutin (Mycobutin) 300 mg DAILY@1800 ORAL 05/21/20 18:00 06/20/20 17:59 05/31/20 18:10 Sevelamer Carbonate (Renvela) 2,400 mg THREE TIMES A DAY ORAL 05/27/20 13:00 08/16/20 17:59 06/01/20 09:04 Temazepam (Restoril) 15 mg HSPRN PRN ORAL Insomnia 05/27/20 14:55 06/03/20 14:54 Terazosin HCl (Hytrin) 2 mg Q12HR ORAL 05/24/20 09:00 06/17/20 17:59 05/31/20 09:25 Laboratory Tests 06/01/20 07:27: White Blood Count 7.8, Red Blood Count 3.36L, Hemoglobin 10.1L, Hematocrit 32.0L , Mean Corpuscular Volume 95, Mean Corpuscular Hemoglobin 30.1, Mean Corpuscular Hemoglobin Concent 31.7L, Red Cell Distribution Width 15.9H, Platelet Count 178, Mean Platelet Volume 7.4, Neutrophils (%) (Auto) 83.4H, Lymphocytes (%) (Auto) 5.7L, Monocytes (%) (Auto) 7.4, Eosinophils (%) (Auto) 2.7, Basophils (%) (Auto) 0.7, Sodium Level 135L, Potassium Level 5.7H, Chloride Level 96L, Carbon Dioxide Level 31, Blood Urea Nitrogen 66H, Creatinine 10.0H, Estimat Glomerular Filtration Rate 5.1, Glucose Level 104, Calcium Level 9.3, Phosphorus Level 3.3 Height (Feet): 5 Height (Inches): 2.00 Weight (Pounds): 132 General Appearance: no apparent distress Cardiovascular: normal rate Respiratory/Chest: lungs clear Abdomen: soft Objective No change Taye Costa MD Jun 01, 2020 10:17
--- NOTE | 2020-06-01 11:34 | Cardiac Electrophysiology PN ---
Assessment/Plan Assessment/Plan 1. Episode of atrial fibrillation, converted to sinus rhythm. Continue aspirin at this time. If I see more episode of atrial fibrillation, we will consider anticoagulation. 2. Hypertension. Increase Procardia XL to 90 mg daily Continue Hytrin 2 bid and Minoxidil 2.5 tid and HD 3. Troponin leak, likely due to renal failure. 0.32, 0.16. No CP. EF of 60- 65%. 4. Shortness of breath and cough. In TB isolation on Meds 5. ESRD on HD per Dr Costa 6. Hyperlipidemia, on Lipitor. 7. Hyperkalemia. KAR RN Subjective Subjective No CP. In TB isolation. Had sputum for AFB. No CP or SOB. Awaiting clearance from Dept of Health Objective Last 24 Hour Vital Signs Date Time Temp Pulse Resp B/P (MAP) Pulse Ox O2 Delivery O2 Flow Rate FiO2 06/01/20 09:00 Nasal Cannula 2.0 06/01/20 09:00 77 180/70 06/01/20 08:00 97.6 89 19 162/70 (100) 97 06/01/20 05:14 160/64 06/01/20 04:00 98.0 96 18 160/64 (96) 96 06/01/20 00:00 97.5 98 20 112/58 (76) 96 05/31/20 21:00 Nasal Cannula 2.0 05/31/20 20:47 106/57 05/31/20 20:00 97.8 101 18 106/57 (73) 97 05/31/20 16:44 153/75 05/31/20 16:00 97.7 60 18 166/57 (93) 98 05/31/20 13:48 160/70 05/31/20 12:00 97.6 72 17 167/74 (105) 98 Intake and Output 0 05/31/20 06/01/20 19:00 07:00 Intake Total 900 ml 240 ml Balance 900 ml 240 ml Intake Oral 240 ml Other 900 ml Laboratory Tests Test 06/01/20 07:27 White Blood Count 7.8 K/UL (4.8-10.8) Red Blood Count 3.36 M/UL (4.70-6.10) L Hemoglobin 10.1 G/DL (14.2-18.0) L Hematocrit 32.0 % (42.0-52.0) L Mean Corpuscular Volume 95 FL (80-99) Mean Corpuscular Hemoglobin 30.1 PG (27.0-31.0) Mean Corpuscular Hemoglobin Concent 31.7 G/DL (32.0-36.0) L Red Cell Distribution Width 15.9 % (11.6-14.8) H Platelet Count 178 K/UL (150-450) Mean Platelet Volume 7.4 FL (6.5-10.1) Neutrophils (%) (Auto) 83.4 % (45.0-75.0) H Lymphocytes (%) (Auto) 5.7 % (20.0-45.0) L Monocytes (%) (Auto) 7.4 % (1.0-10.0) Eosinophils (%) (Auto) 2.7 % (0.0-3.0) Basophils (%) (Auto) 0.7 % (0.0-2.0) Sodium Level 135 MMOL/L (136-145) L Potassium Level 5.7 MMOL/L (3.5-5.1) H Chloride Level 96 MMOL/L (98-107) L Carbon Dioxide Level 31 MMOL/L (21-32) Blood Urea Nitrogen 66 mg/dL (7-18) H Creatinine 10.0 MG/DL (0.55-1.30) H Estimat Glomerular Filtration Rate 5.1 mL/min (>60) Glucose Level 104 MG/DL (74-106) Calcium Level 9.3 MG/DL (8.5-10.1) Phosphorus Level 3.3 MG/DL (2.5-4.9) Microbiology Date/Time Source Procedure Growth Status 05/30/20 05:50 Sputum AFB Specimen Processing Tissue - Final Resulted 05/30/20 05:50 Sputum Acid Fast Bacilli Smear - Final Resulted 05/30/20 05:50 Sputum Acid Fast Bacilli Culture Pending Resulted Objective HEAD AND NECK: No JVD. LUNGS: Decreased breath sounds. CARDIOVASCULAR: Regular S1 and S2 with no gallop. ABDOMEN: Soft. EXTREMITIES: No pitting edema. Danny Roque MD Jun 01, 2020 11:34
[2020-06-01 12:00] VITALS: BP 165/60
[2020-06-01] MEDS ORDERED: RESTORIL15 MG ORAL (13:07)
[2020-06-01] MEDS ORDERED: MYCOBUTIN150 MG ORAL (13:07)
[2020-06-01] MEDS ORDERED: MYAMBUTOL400 MG ORAL (13:07)
[2020-06-01] MEDS ORDERED: LEVOFLOXACIN750 MG ORAL (13:07)
[2020-06-01] MEDS ORDERED: PZA500 M1 ORAL (13:07)
[2020-06-01] MEDS ORDERED: LONITEN2.5 MG ORAL (13:07)
[2020-06-01] MEDS ORDERED: RENVELA800 MG ORAL (13:07)
[2020-06-01] MEDS ORDERED: ACETAMINOPHEN325 M1 ORAL (13:07)
[2020-06-01] MEDS ORDERED: PANTOPRAZOLE SO40 MG ORAL (13:07)
[2020-06-01] MEDS ORDERED: LIPITOR20 MG ORAL (13:07)
[2020-06-01] MEDS ORDERED: ASPIRIN81 MG ORAL (13:07)
[2020-06-01] MEDS ORDERED: COLACE100 MG ORAL (13:07)
[2020-06-01] MEDS ORDERED: NITRO0.4 SL (13:07)
[2020-06-01] MEDS ORDERED: HYTRIN1 MG ORAL (13:07)
[2020-06-01] MEDS ORDERED: PROCARDIA XL30 MG ORAL (13:07)
--- NOTE | 2020-06-01 13:21 | Discharge Summary ---
Discharge Summary Hospital Course Date of Admission May 18, 2020 at 14:30 Date of Discharge 06/01/20 Admitting Diagnosis SOB, fluid overload HPI Kajal Duke is a 74 year old male who was admitted on May 18, 2020 at 14:30 for Shortness Of Breath,Fluid Overload Hospital Course 74 y/o male admitted to the Hospital with; # Volume overload # ESRD on HD Mon - Mon - Renal consult appreciated. Dialysis being coordinated and provided as needed by Dr. Ogden. # Accelerated Hypertension Nephrology started Nifedipine XL 90 mg XL daily was started ( at home Amlodipine was being used per report ) Minoxidil 2.5 mg q 8 hrs started Hydralazine PRN and scheduled 100 mg q 8 hrs Monitor BP which is in the 130-140 now and will continue this regimen. # Reported history of tuberculosis Department of [facility] guidelines being followed. TB therapy with Ethambutol, PZA, LVQ, RIfabutin, Pyridoxine was started 05/20 when doses where confirmed due to ESRD and HD regimen AFB sputum x 3 ordered and 3 samples collected are NEGATIVE Isolation per department for public health, TB controller. ID consultation with Dr. Garsia appreciated. [facility] Department of Public Health provided guidance for discharge and isolation. The patient is negative 3 x ABF smears. # Isolated episode of atrial fibrillation Converted to NSR Dr. Roque consulting and anticoagulation NOT INDICATED at this time. # Hyperlipidemia statin # Physical deconditioning Monitor activity PT evaluation for baseline and consideration for short term rehab if indicated. Case discussed with the patient and he is open to rehabilitation. [facility] manager requested. He has been accepted at [facility] per family request. GI ppx with PPI FULL CODE Discharge Medications New Medications: Acetaminophen* (Acetaminophen 325MG Tablet*) 325 Mg Tablet 650 MG ORAL Q4H PRN for 30 Days, #30 TAB Aspirin* (Aspirin*) 81 Mg Tab.chew 81 MG ORAL DAILY for 30 Days, #30 TAB 3 Refills Atorvastatin Calcium* (Lipitor*) 20 Mg Tablet 20 MG ORAL QHS for 30 Days, #30 TAB 3 Refills Docusate Sodium* (Colace*) 100 Mg Capsule 100 MG ORAL TID for 30 Days, #90 CAP 3 Refills Ethambutol Hcl* (Myambutol*) 400 Mg Tablet 1000 MG ORAL TuThSa@1800 for 60 Days, #60 TAB Levofloxacin* (Levofloxacin*) 750 Mg Tablet 750 MG ORAL TuThSa@1800 for 60 Days, #30 TAB Minoxidil (Minoxidil) 2.5 Mg Tablet 2.5 MG ORAL Q8HR for 30 Days, #90 TAB 5 Refills Nifedipine Xl* (Procardia Xl*) 30 Mg Tab.er.24 90 MG ORAL DAILY for 60 Days, #60 TAB 3 Refills Nitroglycerin 0.4MG table* (Nitroglycerin*) 0.4 Mg Tab.subl 0.4 MG SL Q5M PRN for 14 Days, #20 TAB 1 Refill Pantoprazole* (Pantoprazole*) 40 Mg Tablet.dr 40 MG ORAL BID for 30 Days, #30 TAB 3 Refills Pyrazinamide (Pyrazinamide) 500 Mg Tablet 1500 MG ORAL TuThSa@1800 for 60 Days, #60 TAB 3 Refills Rifabutin (Mycobutin) 150 Mg Capsule 300 MG ORAL DAILY@1800 for 30 Days, #30 CAP 3 Refills Sevelamer Carbonate (Renvela) 800 Mg Tablet 2400 MG ORAL THREE TIMES A DAY for 30 Days, #90 TAB 3 Refills Temazepam* (Restoril*) 15 Mg Capsule 15 MG ORAL HSPRN PRN for 28 Days, #60 CAP 3 Refills Terazosin HCl (Terazosin HCl) 1 Mg Capsule 2 MG ORAL Q12HR for 30 Days, CAP 3 Refills Discharge Condition Upon Discharge: stable Discharge Vital Signs Last Vital Signs Date Time Temp Pulse Resp B/P (MAP) Pulse Ox O2 Delivery O2 Flow Rate FiO2 06/01/20 13:08 165/60 06/01/20 12:00 97.7 71 17 98 06/01/20 09:00 Nasal Cannula 2.0 05/24/20 11:18 98 Discharge Disposition Patient was discharged to [facility] Discharge Diagnoses: (1) ESRD (end stage renal disease) on dialysis (2) Tuberculosis (3) Hypertensive emergency (4) Fluid overload (5) Anemia in chronic kidney disease (CKD) (6) Accelerated essential hypertension (7) Pleural effusion, left Rehan Johnson MD Jun 01, 2020 13:21
[2020-06-01] MEDS: Nitroglycerin Patch 0.4mg TDERMAL SCH (15:55)
[2020-06-01 16:00] VITALS: BP 150/68
[2020-06-01] MEDS: Rifabutin 150mg cap ORAL SCH (17:38)
[2020-06-01 20:00] VITALS: BP 160/61
[2020-06-01] MEDS: Atorvastatin 20mg tab ORAL SCH (20:58)
[2020-06-02] VITALS: BP 137/57
[2020-06-02 04:00] VITALS: BP 138/59
[2020-06-02] MEDS: Minoxidil 2.5mg tab ORAL SCH (05:08)
[2020-06-02 07:16] LABS: BASOPHILS % (AUTO) 0.6 % (0.0-2.0); HEMOGLOBIN 10.7 G/DL (14.2-18.0); LYMPHOCYTES % (AUTO) 8.5 % (20.0-45.0); MEAN CORPUSCULAR VOLUME 95 FL (80-99); MONOCYTES % (AUTO) 9.5 % (1.0-10.0); NEUTROPHILS % (AUTO) 78.4 % (45.0-75.0); PLATELET COUNT 184 K/UL (150-450); RED BLOOD COUNT 3.56 M/UL (4.70-6.10); RED CELL DISTRIBUTION WIDTH 15.9 % (11.6-14.8)
--- NOTE | 2020-06-02 07:29 | Infectious Diseases Prog Note ---
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 Mild pulmonary venous congestion -05/30 AFB smear neg Afebrile No leukocytosis HLD HTN ESRD on HD TThSat Plan: Continue TB regimen: Rifabutin, PZA, Ethambuthol, Levaquin -trend LFTs -f/u cx -Monitor CBC/C MP, temperatures -airborne isolation and AFB sp sm/cx x3 per [facility] recs -discharge planning per [facility] D/w RN Thank you for consulting [facility]. Will continue to follow along with you. Subjective Allergies: Coded Allergies: MORPHINE (Verified Allergy, Unknown, 05/18/20) AF WBC 6.0 D/c planning in process NAD Objective Last 24 Hour Vital Signs Date Time Temp Pulse Resp B/P (MAP) Pulse Ox O2 Delivery O2 Flow Rate FiO2 06/02/20 05:08 138/59 06/02/20 04:00 97.8 74 18 138/59 (85) 97 06/02/20 00:00 98.0 86 18 137/57 (83) 96 06/01/20 21:01 160/61 06/01/20 21:00 Nasal Cannula 2.0 06/01/20 20:00 97.9 77 19 160/61 (94) 99 06/01/20 17:09 Nasal Cannula 2.0 06/01/20 17:06 Nasal Cannula 2.0 06/01/20 16:00 97.5 87 19 150/68 (95) 98 06/01/20 15:55 165/60 06/01/20 13:08 165/60 06/01/20 12:00 97.7 71 17 165/60 (95) 98 06/01/20 09:00 Nasal Cannula 2.0 06/01/20 09:00 77 180/70 06/01/20 08:00 97.6 89 19 162/70 (100) 97 Height (Feet): 5 Height (Inches): 2.00 Weight (Pounds): 132 Gen: NAD in bed HEENT: NCAT, EOMI, PERRL CV: RRR Pulm: CTAB Abd: Soft, NTND Ext: No c/c/e Neuro: Awake Microbiology Date/Time Source Procedure Growth Status 06/01/20 16:20 Nasopharynx SARS-CoV-2 RdRp Gene Assay - Final Complete Laboratory Tests Test 06/02/20 05:50 White Blood Count Pending Red Blood Count Pending Hemoglobin Pending Hematocrit Pending Mean Corpuscular Volume Pending Mean Corpuscular Hemoglobin Pending Mean Corpuscular Hemoglobin Concent Pending Red Cell Distribution Width Pending Platelet Count Pending Mean Platelet Volume Pending Neutrophils (%) (Auto) Pending Lymphocytes (%) (Auto) Pending Monocytes (%) (Auto) Pending Eosinophils (%) (Auto) Pending Basophils (%) (Auto) Pending Sodium Level Pending Potassium Level Pending Chloride Level Pending Carbon Dioxide Level Pending Blood Urea Nitrogen Pending Creatinine Pending Estimat Glomerular Filtration Rate Pending Glucose Level Pending Calcium Level Pending Phosphorus Level Pending Magnesium Level Pending Total Bilirubin Pending Aspartate Amino Transf (AST/SGOT) Pending Alanine Aminotransferase (ALT/SGPT) Pending Alkaline Phosphatase Pending Total Protein Pending Albumin Pending Globulin Pending Current Medications Medications (Trade) Dose Ordered Sig/Love Route PRN Reason Start Time Stop Time Status Last Admin Dose Admin Acetaminophen (Tylenol) 650 mg Q4H PRN ORAL Mild Pain (Pain Scale 1-3) 05/18/20 15:15 06/17/20 15:14 06/02/20 00:59 Aspirin (ASA) 81 mg DAILY ORAL 05/19/20 15:15 07/03/20 15:14 06/01/20 09:05 Atorvastatin Calcium (Lipitor) 20 mg QHS ORAL 05/18/20 21:00 08/16/20 20:59 06/01/20 20:58 Dextrose (Dextrose 50%) 25 ml Q30M PRN IV Hypoglycemia 05/18/20 15:15 08/16/20 15:14 Dextrose (Dextrose 50%) 50 ml Q30M PRN IV Hypoglycemia 05/18/20 15:15 08/16/20 15:14 Docusate Sodium (Colace) 100 mg TID ORAL 05/20/20 18:00 06/17/20 17:59 06/01/20 17:38 Ethambutol HCl (Myambutol) 1,000 mg TuThSa@1800 ORAL 05/21/20 18:00 06/20/20 17:59 05/30/20 17:58 Heparin Sodium (Porcine) (Heparin 5000 units/ml) 5,000 units EVERY 12 HOURS SUBQ 05/18/20 21:00 07/02/20 20:59 06/01/20 20:58 Levofloxacin (Levaquin) 750 mg TuThSa@1800 ORAL 05/21/20 18:00 06/24/20 17:59 05/30/20 18:01 Minoxidil (Loniten) 2.5 mg Q8HR ORAL 05/25/20 22:00 08/22/20 13:59 06/02/20 05:08 Nifedipine (Procardia XL) 90 mg DAILY ORAL 06/01/20 09:00 06/23/20 08:59 Nitroglycerin (Ntg) 0.4 mg Q5M PRN SL Prn Chest Pain 05/18/20 15:15 06/17/20 15:14 Nitroglycerin (Ntg) 1 patch Q24H TDERMAL 05/19/20 16:00 06/18/20 15:59 05/31/20 16:44 Ondansetron HCl (Zofran) 4 mg Q6H PRN IVP Nausea & Vomiting 05/18/20 15:15 06/17/20 15:14 05/25/20 05:24 Pantoprazole (Protonix) 40 mg BID ORAL 05/19/20 18:00 06/18/20 08:59 06/01/20 17:38 Pyrazinamide (Pza) 1,500 mg TuThSa@1800 ORAL 05/21/20 18:00 06/20/20 17:59 05/30/20 18:07 Rifabutin (Mycobutin) 300 mg DAILY@1800 ORAL 05/21/20 18:00 06/20/20 17:59 06/01/20 17:38 Sevelamer Carbonate (Renvela) 2,400 mg THREE TIMES A DAY ORAL 05/27/20 13:00 08/16/20 17:59 06/01/20 17:38 Temazepam (Restoril) 15 mg HSPRN PRN ORAL Insomnia 05/27/20 14:55 06/03/20 14:54 Terazosin HCl (Hytrin) 2 mg Q12HR ORAL 05/24/20 09:00 06/17/20 17:59 06/01/20 20:58 Nadine Hays M.D. Jun 02, 2020 07:29
[2020-06-02 07:46] LABS: ALBUMIN 2.6 G/DL (3.4-5.0); ALBUMIN/GLOBULIN RATIO 0.6 (1.0-2.7); BILIRUBIN,TOTAL 0.5 MG/DL (0.2-1.0); CALCIUM 9.2 MG/DL (8.5-10.1); CREATININE 7.9 MG/DL (0.55-1.30); PHOSPHORUS 2.6 MG/DL (2.5-4.9); POTASSIUM 4.6 MMOL/L (3.5-5.1)
[2020-06-02 08:00] VITALS: BP 175/76
--- NOTE | 2020-06-02 08:21 | Cardiac Electrophysiology PN ---
Assessment/Plan Assessment/Plan 1. Episode of atrial fibrillation, converted to sinus rhythm. Continue aspirin at this time. If I see more episode of atrial fibrillation, we will consider anticoagulation. 2. Hypertension. Increase Procardia XL to 90 mg daily Continue Hytrin 2 bid and Minoxidil 2.5 tid and HD 3. Troponin leak, likely due to renal failure. 0.32, 0.16. No CP. EF of 60- 65%. 4. Shortness of breath and cough. In TB isolation on Meds 5. ESRD on HD per Dr Costa 6. Hyperlipidemia, on Lipitor. 7. Hyperkalemia. KAR RN Subjective Subjective No CP. In TB isolation. No CP or SOB. VSS Awaiting clearance from Dept of Health Objective Last 24 Hour Vital Signs Date Time Temp Pulse Resp B/P (MAP) Pulse Ox O2 Delivery O2 Flow Rate FiO2 06/02/20 05:08 138/59 06/02/20 04:00 97.8 74 18 138/59 (85) 97 06/02/20 00:00 98.0 86 18 137/57 (83) 96 06/01/20 21:01 160/61 06/01/20 21:00 Nasal Cannula 2.0 06/01/20 20:00 97.9 77 19 160/61 (94) 99 06/01/20 17:09 Nasal Cannula 2.0 06/01/20 17:06 Nasal Cannula 2.0 06/01/20 16:00 97.5 87 19 150/68 (95) 98 06/01/20 15:55 165/60 06/01/20 13:08 165/60 06/01/20 12:00 97.7 71 17 165/60 (95) 98 06/01/20 09:00 Nasal Cannula 2.0 06/01/20 09:00 77 180/70 Intake and Output 06/01/20 06/02/20 19:00 07:00 Intake Total 500 ml Balance 500 ml Other 500 ml # Voids 1 # Bowel Movements 2 Laboratory Tests Test 06/02/20 05:50 White Blood Count 6.0 K/UL (4.8-10.8) Red Blood Count 3.56 M/UL (4.70-6.10) L Hemoglobin 10.7 G/DL (14.2-18.0) L Hematocrit 34.0 % (42.0-52.0) L Mean Corpuscular Volume 95 FL (80-99) Mean Corpuscular Hemoglobin 30.0 PG (27.0-31.0) Mean Corpuscular Hemoglobin Concent 31.5 G/DL (32.0-36.0) L Red Cell Distribution Width 15.9 % (11.6-14.8) H Platelet Count 184 K/UL (150-450) Mean Platelet Volume 8.0 FL (6.5-10.1) Neutrophils (%) (Auto) 78.4 % (45.0-75.0) H Lymphocytes (%) (Auto) 8.5 % (20.0-45.0) L Monocytes (%) (Auto) 9.5 % (1.0-10.0) Eosinophils (%) (Auto) 3.0 % (0.0-3.0) Basophils (%) (Auto) 0.6 % (0.0-2.0) Sodium Level 137 MMOL/L (136-145) Potassium Level 4.6 MMOL/L (3.5-5.1) Chloride Level 99 MMOL/L (98-107) Carbon Dioxide Level 31 MMOL/L (21-32) Anion Gap 7 mmol/L (5-15) Blood Urea Nitrogen 43 mg/dL (7-18) H Creatinine 7.9 MG/DL (0.55-1.30) H Estimat Glomerular Filtration Rate 6.7 mL/min (>60) Glucose Level 136 MG/DL (74-106) H Calcium Level 9.2 MG/DL (8.5-10.1) Phosphorus Level 2.6 MG/DL (2.5-4.9) Magnesium Level 2.3 MG/DL (1.8-2.4) Total Bilirubin 0.5 MG/DL (0.2-1.0) Aspartate Amino Transf (AST/SGOT) 13 U/L (15-37) L Alanine Aminotransferase (ALT/SGPT) 11 U/L (12-78) L Alkaline Phosphatase 69 U/L (46-116) Total Protein 6.8 G/DL (6.4-8.2) Albumin 2.6 G/DL (3.4-5.0) L Globulin 4.2 g/dL Albumin/Globulin Ratio 0.6 (1.0-2.7) L Microbiology Date/Time Source Procedure Growth Status 06/01/20 16:20 Nasopharynx SARS-CoV-2 RdRp Gene Assay - Final Complete Objective HEAD AND NECK: No JVD. LUNGS: Decreased breath sounds. CARDIOVASCULAR: Regular S1 and S2 with no gallop. ABDOMEN: Soft. EXTREMITIES: No pitting edema. Danny Roque MD Jun 02, 2020 08:21
[2020-06-02] MEDS: Heparin 5000 units/ml inj SUBQ SCH (08:55)
[2020-06-02] MEDS: Aspirin Baby 81mg ORAL SCH (08:57)
[2020-06-02] MEDS: Terazosin 1mg cap ORAL SCH (08:57)
[2020-06-02] MEDS: Docusate 100mg cap ORAL SCH ×2 (08:57→12:13)
--- NOTE | 2020-06-02 09:48 | General Progress Note ---
Subjective Date patient seen: Jun 01, 2020 Allergies: Coded Allergies: MORPHINE (Verified Allergy, Unknown, 05/18/20) Subjective He feels well. No acute complains. Good PO intake. Objective Last 24 Hour Vital Signs Date Time Temp Pulse Resp B/P (MAP) Pulse Ox O2 Delivery O2 Flow Rate FiO2 06/02/20 08:57 87 175/76 06/02/20 08:00 97.2 87 20 175/76 (109) 97 06/02/20 05:08 138/59 06/02/20 04:00 97.8 74 18 138/59 (85) 97 06/02/20 00:00 98.0 86 18 137/57 (83) 96 06/01/20 21:01 160/61 06/01/20 21:00 Nasal Cannula 2.0 06/01/20 20:00 97.9 77 19 160/61 (94) 99 06/01/20 17:09 Nasal Cannula 2.0 06/01/20 17:06 Nasal Cannula 2.0 06/01/20 16:00 97.5 87 19 150/68 (95) 98 06/01/20 15:55 165/60 06/01/20 13:08 165/60 06/01/20 12:00 97.7 71 17 165/60 (95) 98 Intake and Output 06/01/20 06/02/20 19:00 07:00 Intake Total 500 ml Balance 500 ml Other 500 ml # Voids 1 # Bowel Movements 2 Laboratory Tests 06/02/20 05:50: White Blood Count 6.0, Red Blood Count 3.56L, Hemoglobin 10.7L, Hematocrit 34.0L , Mean Corpuscular Volume 95, Mean Corpuscular Hemoglobin 30.0, Mean Corpuscular Hemoglobin Concent 31.5L, Red Cell Distribution Width 15.9H, Platelet Count 184, Mean Platelet Volume 8.0, Neutrophils (%) (Auto) 78.4H, Lymphocytes (%) (Auto) 8.5L, Monocytes (%) (Auto) 9.5, Eosinophils (%) (Auto) 3.0, Basophils (%) (Auto) 0.6, Sodium Level 137, Potassium Level 4.6, Chloride Level 99, Carbon Dioxide Level 31, Anion Gap 7, Blood Urea Nitrogen 43H, Creatinine 7.9H, Estimat Glomerular Filtration Rate 6.7, Glucose Level 136H, Calcium Level 9.2, Phosphorus Level 2.6, Magnesium Level 2.3, Total Bilirubin 0.5, Aspartate Amino Transf (AST/SGOT) 13L, Alanine Aminotransferase (ALT/SGPT) 11L, Alkaline Phosphatase 69, Total Protein 6.8, Albumin 2.6L, Globulin 4.2, Albumin/Globulin Ratio 0.6L Height (Feet): 5 Height (Inches): 2.00 Weight (Pounds): 132 General Appearance: WD/WN EENT: PERRL/EOMI Neck: non-tender Cardiovascular: normal rate Respiratory/Chest: lungs clear Abdomen: non tender Edema: trace edema Neurologic: health unit coordinator II-XII grossly normal Assessment/Plan Status: stable Assessment/Plan: 74 y/o male admitted to the Hospital with; # Volume overload # ESRD on HD Mon - Mon - Renal consult appreciated. Dialysis being coordinated and provided as needed by Dr. Ogden. # Accelerated Hypertension Nephrology started Nifedipine XL 90 mg XL daily was started ( at home Amlodipine was being used per report ) Minoxidil 2.5 mg q 8 hrs started Hydralazine PRN and scheduled 100 mg q 8 hrs Monitor BP which is in the 130-140 now and will continue this regimen. # Reported history of tuberculosis Department of public health guidelines being followed. TB therapy with Ethambutol, PZA, LVQ, RIfabutin, Pyridoxine was started 05/20 when doses where confirmed due to ESRD and HD regimen AFB sputum x 3 ordered and 3 samples collected are NEGATIVE Isolation per department for public health, TB controller. ID consultation with Dr. Garsia appreciated. [facility] Department of Public Health provided guidance for discharge and isolation. The patient is negative 3 x ABF smears. # Isolated episode of atrial fibrillation Converted to NSR Dr. Roque consulting and anticoagulation NOT INDICATED at this time. # Hyperlipidemia statin # Physical deconditioning Monitor activity PT evaluation for baseline and consideration for short term rehab if indicated. Case discussed with the patient and he is open to rehabilitation. online merchandising managersite operations manager requested. He has been accepted at [facility] per family request. GI ppx with PPI FULL CODE Rehan Johnson MD Jun 02, 2020 09:48
[2020-06-02 12:00] VITALS: BP 139/74
--- NOTE | 2020-06-02 12:12 | Nephrology Progress Note ---
Assessment/Plan Problem List: (1) Hypertensive emergency (2) ESRD (end stage renal disease) on dialysis (3) Fluid overload (4) Anemia in chronic kidney disease (CKD) (5) Hypertensive kidney disease (6) Tuberculosis Assessment: by history Assessment End-stage renal disease on hemodialysis via left upper arm fistula Monday Volume overload, on chest x-ray evident Hypertension [id number] Plan June 02: Dialyzed yesterday. Due for dialysis tomorrow. Labs reviewed. Medication reviewed. Blood pressure adjustment as needed. Okay to discharge and follow-up as an outpatient. June 01: Due for dialysis today. Labs reviewed. Serum potassium 5.7. Potassium will be corrected after dialysis. Blood pressure reasonably controlled. BP medication not to be held before dialysis on dialysis days May 31: Last dialysis May 29. Next dialysis June 01. Medications and lab results reviewed. Continue per current management. Procardia dose increased to 90 mg every morning XL May 30: Dialyzed yesterday. Stable. Continue per consultants. Blood pressure stable May 29: Due for dialysis today. Continue per consultants. Labs and medication list reviewed. May 28: Dialyzed yesterday. Today's labs pending. Next dialysis tomorrow. Continue per consultants. On anti-TB medication. May 27: Due for dialysis today. Phos binders dosage increased. Continue per consultants. May 26: Labs reviewed. Blood pressure medication adjusted. Due for dialysis tomorrow. On anti-TB medication. May 25: Dialysed 05/24- Labs reviewed. BP meds adjusted . BP stable. Continue per consultants May 24: Despite of dialysis yesterday, 2 days serum potassium is 6. Will discontinue lisinopril. Kayexalate p.o. ordered. Attempt to dialyze again t tay. Blood pressure medication adjusted. Continue the rest. Patient on anti- TB medications. May 23: Dialyzed May 21. Due for dialysis today. Continue to monitor renal parameters. May 22: Dialyzed yesterday. Stable from renal standpoint of view. Chest x- ray noted. Hemodialysis and ultrafiltration tomorrow. May 21: Due for hemodialysis today. Continue to adjust blood pressure medication. Labs reviewed. Chest x-ray pending. May 20: Hemodialysis tomorrow. Blood pressure medication adjusted. Labs reviewed. Discussed with . Check chest x-ray tomorrow. May 19: Hemodialysis and ultrafiltration today. Adjust blood pressure medication. Start low-dose aspirin and nitrate. Monitor renal parameters. 2D echocardiogram indicative of ejection fraction of 60% and most likely diastolic dysfunction Subjective ROS Limited/Unobtainable: No Constitutional: Reports: malaise Objective Objective Last 24 Hour Vital Signs Date Time Temp Pulse Resp B/P (MAP) Pulse Ox O2 Delivery O2 Flow Rate FiO2 06/02/20 09:00 Nasal Cannula 2.0 06/02/20 08:57 87 175/76 06/02/20 08:00 97.2 87 20 175/76 (109) 97 06/02/20 05:08 138/59 06/02/20 04:00 97.8 74 18 138/59 (85) 97 06/02/20 00:00 98.0 86 18 137/57 (83) 96 06/01/20 21:01 160/61 06/01/20 21:00 Nasal Cannula 2.0 06/01/20 20:00 97.9 77 19 160/61 (94) 99 06/01/20 17:09 Nasal Cannula 2.0 06/01/20 17:06 Nasal Cannula 2.0 06/01/20 16:00 97.5 87 19 150/68 (95) 98 06/01/20 15:55 165/60 06/01/20 13:08 165/60 Intake and Output 06/01/20 06/02/20 19:00 07:00 Intake Total 500 ml Balance 500 ml Other 500 ml # Voids 1 # Bowel Movements 2 Current Medications Medications (Trade) Dose Ordered Sig/Love Route PRN Reason Start Time Stop Time Status Last Admin Dose Admin Acetaminophen (Tylenol) 650 mg Q4H PRN ORAL Mild Pain (Pain Scale 1-3) 05/18/20 15:15 06/17/20 15:14 06/02/20 10:58 Aspirin (ASA) 81 mg DAILY ORAL 05/19/20 15:15 07/03/20 15:14 06/02/20 08:57 Atorvastatin Calcium (Lipitor) 20 mg QHS ORAL 05/18/20 21:00 08/16/20 20:59 06/01/20 20:58 Dextrose (Dextrose 50%) 25 ml Q30M PRN IV Hypoglycemia 05/18/20 15:15 08/16/20 15:14 Dextrose (Dextrose 50%) 50 ml Q30M PRN IV Hypoglycemia 05/18/20 15:15 08/16/20 15:14 Docusate Sodium (Colace) 100 mg TID ORAL 05/20/20 18:00 06/17/20 17:59 06/02/20 08:57 Ethambutol HCl (Myambutol) 1,000 mg TuThSa@1800 ORAL 05/21/20 18:00 06/20/20 17:59 05/30/20 17:58 Heparin Sodium (Porcine) (Heparin 5000 units/ml) 5,000 units EVERY 12 HOURS SUBQ 05/18/20 21:00 07/02/20 20:59 06/02/20 08:55 Levofloxacin (Levaquin) 750 mg TuThSa@1800 ORAL 05/21/20 18:00 06/24/20 17:59 05/30/20 18:01 Minoxidil (Loniten) 2.5 mg Q8HR ORAL 05/25/20 22:00 08/22/20 13:59 06/02/20 05:08 Nifedipine (Procardia XL) 90 mg DAILY ORAL 06/01/20 09:00 06/23/20 08:59 06/02/20 08:57 Nitroglycerin (Ntg) 0.4 mg Q5M PRN SL Prn Chest Pain 05/18/20 15:15 06/17/20 15:14 Nitroglycerin (Ntg) 1 patch Q24H TDERMAL 05/19/20 16:00 06/18/20 15:59 05/31/20 16:44 Ondansetron HCl (Zofran) 4 mg Q6H PRN IVP Nausea & Vomiting 05/18/20 15:15 06/17/20 15:14 05/25/20 05:24 Pantoprazole (Protonix) 40 mg BID ORAL 05/19/20 18:00 06/18/20 08:59 06/02/20 08:57 Pyrazinamide (Pza) 1,500 mg TuThSa@1800 ORAL 05/21/20 18:00 06/20/20 17:59 05/30/20 18:07 Rifabutin (Mycobutin) 300 mg DAILY@1800 ORAL 05/21/20 18:00 06/20/20 17:59 06/01/20 17:38 Sevelamer Carbonate (Renvela) 2,400 mg THREE TIMES A DAY ORAL 05/27/20 13:00 08/16/20 17:59 06/02/20 08:57 Temazepam (Restoril) 15 mg HSPRN PRN ORAL Insomnia 05/27/20 14:55 06/03/20 14:54 Terazosin HCl (Hytrin) 2 mg Q12HR ORAL 05/24/20 09:00 06/17/20 17:59 06/02/20 08:57 Laboratory Tests 06/02/20 05:50: White Blood Count 6.0, Red Blood Count 3.56L, Hemoglobin 10.7L, Hematocrit 34.0L , Mean Corpuscular Volume 95, Mean Corpuscular Hemoglobin 30.0, Mean Corpuscular Hemoglobin Concent 31.5L, Red Cell Distribution Width 15.9H, Platelet Count 184, Mean Platelet Volume 8.0, Neutrophils (%) (Auto) 78.4H, Lymphocytes (%) (Auto) 8.5L, Monocytes (%) (Auto) 9.5, Eosinophils (%) (Auto) 3.0, Basophils (%) (Auto) 0.6, Sodium Level 137, Potassium Level 4.6, Chloride Level 99, Carbon Dioxide Level 31, Anion Gap 7, Blood Urea Nitrogen 43H, Creatinine 7.9H, Estimat Glomerular Filtration Rate 6.7, Glucose Level 136H, Calcium Level 9.2, Phosphorus Level 2.6, Magnesium Level 2.3, Total Bilirubin 0.5, Aspartate Amino Transf (AST/SGOT) 13L, Alanine Aminotransferase (ALT/SGPT) 11L, Alkaline P hosphatase 69, Total Protein 6.8, Albumin 2.6L, Globulin 4.2, Albumin/Globulin Ratio 0.6L Height (Feet): 5 Height (Inches): 2.00 Weight (Pounds): 132 General Appearance: no apparent distress Cardiovascular: normal rate Respiratory/Chest: decreased breath sounds Abdomen: soft Objective No change Taye Costa MD Jun 02, 2020 12:12
[2020-06-02] MEDS ORDERED: Minoxidil 2.5mg tab ORAL SCH (14:00)
[2020-06-02 16:00] VITALS: BP 120/43
== END 2020-06-02 16:28 | DRG 640 ==
LOC: EMR 14:23 → 2E 14:30 → EDBEDREQ 14:56 → 2E 05-19 17:15 → 4E 05-26 01:49
PROC: 5A1D70Z Performance of Urinary Filtration, Intermittent, Less than 6 Hours Per Day (ICD-10-PCS; principal; 2020-05-18)
DX: E87.70 Fluid overload, unspecified (principal); N18.6 End stage renal disease; I12.0 Hypertensive chronic kidney disease with stage 5 chronic kidney disease or end stage renal disease; I16.1 Hypertensive emergency; A15.0 Tuberculosis of lung; Z99.2 Dependence on renal dialysis; E78.5 Hyperlipidemia, unspecified; I48.91 Unspecified atrial fibrillation; I44.0 Atrioventricular block, first degree; E11.22 Type 2 diabetes mellitus with diabetic chronic kidney disease; E87.5 Hyperkalemia; D63.1 Anemia in chronic kidney disease; Z20.828 Contact with and (suspected) exposure to other viral communicable diseases
CPT/HCPCS: 36415; 71045; 80048; 80053; 80061; 80076; 82607; 82746; 82962; 82977; 83036; 83735; 83880; 84100; 84443; 84484; 84550; 85007; 85025; 86140; 86706; 87081; 87116; 87556; 93005; 93306; 96374; 99285; J2405; U0002